=== PATIENT | female | born 1950 | race Caucasian/White ===

== ENCOUNTER → 2017-10-26 16:02 | Outpatient (CLI) | payer MEDICARE, SELFPAY ==
[2017-10-26 16:08] LABS: Adenovirus F 40/41, stool Not Detected (NotDetected); Astrovirus Not Detected (NotDetected); Campylobacter Not Detected (NotDetected); Clostridium Difficile A/B, PCR Not Detected (NotDetected); Cryptosporidium Not Detected (NotDetected); Cyclospora Cayetanesis Not Detected (NotDetected); Entamoeba histolytica Not Detected (NotDetected); Enteroaggregative E coli Not Detected (NotDetected); Enteropathogenic E coli Not Detected (NotDetected); Enterotoxigenic E coli Not Detected (NotDetected); Giardia lamblia Not Detected (NotDetected); Norovirus Not Detected (NotDetected); Plesimonas Shigalloides, PCR Not Detected (NotDetected); Rotavirus A Not Detected (NotDetected); Salmonella, PCR Not Detected (NotDetected); Sapovirus Not Detected (NotDetected); Shiga-like toxin E coli Not Detected (NotDetected); Shigella Enterovasive E coli Not Detected (NotDetected); Vibrio Cholerae Not Detected (NotDetected); Vibrio, PCR Not Detected (NotDetected); Yersinia Entercolitica, PCR Not Detected (NotDetected)
== END ==
PROVIDERS: Visit Provider Nurse Practitioner Family
DX: R19.7 Diarrhea, unspecified (principal)
CPT/HCPCS: 87507

== ENCOUNTER → 2019-01-17 11:29 | Outpatient (CLI) | payer MEDICARE, SELFPAY ==
--- NOTE | 2019-01-17 11:35 | XR_ITS ---
XR foot wt bearing RT 3V HISTORY: ITS.REASON: pain ORDERING PHYSICIAN: Holly Brown DPM PATIENT AGE: 68 years COMPARISON: None FINDINGS: No fracture or dislocation. No lytic or blastic change. There is normal mineralization.. The joint spaces are well-preserved. There is mild bony hypertrophic change at the first metatarsal tarsal joint. There is a prominent os navicularis IMPRESSION: Degenerative changes at the first metatarsal tarsal joint Prominent os navicularis
== END ==
PROVIDERS: PCP Nurse Practitioner Family; Visit Provider Podiatrist
DX: M79.671 Pain in right foot (principal)
CPT/HCPCS: 73630

== ENCOUNTER → 2019-01-23 18:39 | Outpatient (CLI) | payer MEDICARE, SELFPAY ==
[2019-01-23 18:59] LABS: Basophils # 0.1 K/mm3 (0-0.2); Basophils % 0.7 % (0.1-2.0); Eosinophils # 0.1 K/mm3 (0.0-0.4); Eosinophils % 1.1 % (0.1-12.0); Hematocrit 42.6 % (37.0-47.0); Hemoglobin 13.3 g/dL (12.2-16.2); Lymphocytes # 1.8 K/mm3 (0.7-4.5); Mean Corpuscular HGB Conc 31.3 g/dL (31.8-35.4); Mean Corpuscular Hemoglobin 30.7 pg (27.0-31.2); Mean Corpuscular Volume 98.3 fl (81-99); Mean Platelet Volume 8.8 fl (7.4-10.4); Monocytes # 0.4 K/mm3 (0.1-1.0); Monocytes % 5.3 % (1.7-9.3); Neutrophils # 5.1 K/mm3 (1.8-7.8); Neutrophils % 68.9 % (37.0-80.0); Platelet Count 370 K/mm3 (142-424); Red Blood Count 4.33 M/mm3 (4.20-5.40); Red Cell Distribution Width 13.1 % (11.5-17.5); White Blood Count 7.4 K/mm3 (4.8-10.8)
[2019-01-23 19:09] LABS: Alanine Aminotransferase 18 U/L (12-78); Albumin Level 3.7 gm/dL (3.4-5.0); Albumin/Globulin Ratio 1.2 (1.1-1.8); Alkaline Phosphatase 79 U/L (46-116); Anion Gap 15.5 mEq/L (5-15); Aspartate Amino Transferase 13 U/L (15-37); Bilirubin,Total 0.3 mg/dL (0.2-1.0); Blood Urea Nitrogen 24 mg/dL (7-18); C-Reactive Protein < 0.2 mg/L (0.0-0.9); Calcium 9.3 mg/dL (8.5-10.1); Carbon Dioxide 26 mmol/L (21.0-32.0); Chloride 105 mmol/L (98-107); Chol/HDL Ratio 2.5 (1-3.5); Cholesterol 174 mg/dL (140-200); Creatinine,Serum 1.21 mg/dL (0.55-1.02); Estimated Glomerular Filt Rate 45 ml/min (>60); GFR (African American) 54 ML/MIN (>60); Globulin 3.1 gm/dl (1.3-3.2); Glucose 106 mg/dL (74-106); HDL Cholesterol 71 mg/dL (29-89); LDL Cholesterol 76 mg/dL (0-130); Potassium 3.5 mmoL/L (3.5-5.1); Sodium 143 mmol/L (136-145); T4 (Thyroxine) 14.9 ug/dl (4.7-13.3); Thyroid Stimulating Hormone 0.57 uIU/ml (0.358-3.740); Total Protein,Serum 6.8 gm/dL (6.4-8.2); Triglycerides 137 mg/dL (30-200); VLDL Cholesterol 27 mg/dL (0-40)
[2019-01-23 19:28] LABS: Erythrocyte Sedimentation Rate 19 mm/hr (0-30)
[2019-01-25 17:47] LABS: Vitamin D 25 Hydroxy 30.5 ng/mL (30.0-100.0)
== END ==
PROVIDERS: Visit Provider Nurse Practitioner Family
DX: R10.9 Unspecified abdominal pain; R25.1 Tremor, unspecified; E03.9 Hypothyroidism, unspecified
CPT/HCPCS: 80053; 80061; 82652; 84436; 84443; 85025; 85651; 86140; 87086

== ENCOUNTER → 2019-01-25 10:10 | Outpatient (CLI) | payer MEDICARE, SELFPAY | PROVIDERS: PCP Emergency Medicine; Visit Provider Nurse Practitioner Family | DX: R00.2 Palpitations (principal); R42 Dizziness and giddiness | CPT/HCPCS: 93270 ==

== ENCOUNTER → 2019-01-30 16:03 | Outpatient (CLI) | payer MEDICARE, SELFPAY | PROVIDERS: Visit Provider Specialist | DX: G47.19 Other hypersomnia (principal); G47.30 Sleep apnea, unspecified; R06.83 Snoring; R41.3 Other amnesia; R53.83 Other fatigue | CPT/HCPCS: G0399 ==

== ENCOUNTER → 2019-02-07 12:54 | Outpatient (CLI) | payer MEDICARE, SELFPAY ==
--- NOTE | 2019-02-07 12:56 | CA_ITS ---
PROCEDURE: 2-D M-mode and color Doppler study INDICATIONS FOR THE TEST: Chest pain COPDX Heart Murmur Tobacco SmokingX PalpitationsX Fatigue Syncope Edema HypertensionXDiabetes Mellitus Rheumatic Fever SOBXDOE Obesity HyperlipidemiaX Family History HDX Additional History PATIENT INFORMATION HEIGHT: 64 WEIGHT:136 GENDER: Female B/P:161/86 2-D/M-MODE INTERPRETATION: 2-D MEASUREMENTS OBSERVED VALUES IN CMS Right Ventricular Dimension (RVDd) 1.9 Interventricular Septum (Thickness)(IVsd) .7 Left Ventricular Internal Dimensions(LVIDd) 4.5 Left Ventricular Posterior Wall (Thickness)(LVPWd) .7 Aortic Root 3.4 Aortic Cusp Separation 1.9 Left Atrial Dimensions (LAD) 2.6 2D 1. Left atrium is mildly enlarged, left ventricle is normal size, mild concentric left ventricular hypertrophy, visually estimated ejection fraction 55% with no regional wall motion abnormality. 2. The right atrium and right ventricle are normal size and contractility. 3. The aortic valve is minimally thickened and fibrosed. 4. The mitral and tricuspid valve leaflets are minimally thickened 5. The pulmonic valve is poorly visualized. 6. No significant pericardial effusion noted. DOPPLER INTERROGATION: Doppler interrogation of the aortic, mitral and tricuspid valvular presence of mild mitral and tricuspid regurgitation, tricuspid regurgitation jet velocity is inadequate for calculation of the right ventricular systolic pressure, grade 1 diastolic dysfunction seen without tissue Doppler evidence of raised left atrial pressure. CONCLUSION: 1. Mildly enlarged left atrium, normal left ventricular size, mild concentric left ventricular hypertrophy, visually estimated ejection fraction 55% with no regional wall motion abnormality, grade 1 diastolic dysfunction seen without tissue Doppler evidence of raised left atrial pressure. 2. Mild mitral and tricuspid regurgitation 3. No significant pericardial effusion noted.
--- NOTE | 2019-02-07 12:56 | CI_ITS ---
Cerebrovascular Exam Indications: 433.10 Occlusion/stenosis of carotid artery without cerebral infarction. IMPRESSIONS 1. The bilateral vertebral arteries are patent with normal antegrade flow. 2. Study suggests less than 20% stenosis involving the right internal carotid artery and the left internal carotid artery. No change from the study of 25-Jan-2017. History: Risk factors: Current tobacco use. Hypertension. Carotid duplex study. Complete study and Doppler flow study including spectral analysis, color and huertas scale imaging. Location: Vascular laboratory. Patient status: Outpatient. Tables: Arterial flow: + +--------+--------+ Location V sys V ed + +--------+--------+ Right CCA - proximal 55.8cm/s 17.3cm/s + +--------+--------+ Right CCA - distal 55cm/s 17.3cm/s + +--------+--------+ Right ECA 67.6cm/s -------- + +--------+--------+ Right ICA - proximal 55.8cm/s 17.3cm/s + +--------+--------+ Right ICA - mid 69.9cm/s 21.2cm/s + +--------+--------+ Right ICA - distal 59.7cm/s 22cm/s + +--------+--------+ Right vertebral 44.8cm/s -------- + +--------+--------+ Left CCA - proximal 68.4cm/s 20.4cm/s + +--------+--------+ Left CCA - distal 50.3cm/s 15.7cm/s + +--------+--------+ Left ECA 73.1cm/s -------- + +--------+--------+ Left ICA - proximal 43cm/s 19.9cm/s + +--------+--------+ Left ICA - mid 62.9cm/s 25.9cm/s + +--------+--------+ Left ICA - distal 73.3cm/s 24.3cm/s + +--------+--------+ Left vertebral 43cm/s -------- + +--------+--------+ Velocity ratios: + + + + + + Right, V sys Right, V ed Left, V sys Left, V ed + + + + + + Max ICA/dist CCA 1.27 1.27 1.46 1.65 + + + + + + (Report amended ) Electronically signed by: Tristan Woods [id number]
== END ==
PROVIDERS: PCP Nurse Practitioner Family; Visit Provider Internal Medicine
DX: R00.2 Palpitations (principal); R06.02 Shortness of breath; I65.29 Occlusion and stenosis of unspecified carotid artery; R42 Dizziness and giddiness
CPT/HCPCS: 93306; 93880

== ENCOUNTER → 2019-02-15 10:56 | Outpatient (CLI) | payer MEDICARE, SELFPAY ==
[2019-02-15 12:42] LABS: Blood Urea Nitrogen 20 mg/dL (7-18); Calcium 9.3 mg/dL (8.5-10.1); Carbon Dioxide 27 mmol/L (21.0-32.0); Chloride 107 mmol/L (98-107); Creatinine,Serum 1.13 mg/dL (0.55-1.02); Estimated Glomerular Filt Rate 48 ml/min (>60); Free T4 (Free Thyroxine) 1.39 ng/dl (0.76-1.46); GFR (African American) 58 ML/MIN (>60); Glucose 88 mg/dL (74-106); Sodium 144 mmol/L (136-145)
[2019-02-16 22:05] LABS: Triiodothyronine (T3) Free 2.8 pg/mL (2.0-4.4)
== END ==
PROVIDERS: Visit Provider Nurse Practitioner Family
DX: E03.9 Hypothyroidism, unspecified (principal); R79.9 Abnormal finding of blood chemistry, unspecified
CPT/HCPCS: 36415; 80048; 84439; 84481

== ENCOUNTER → 2019-03-27 09:01 | Outpatient (CLI) | payer MEDICARE, SELFPAY ==
--- NOTE | 2019-03-27 09:03 | XR_ITS ---
PROCEDURE: XR DEXA AXIAL SKELETON CLINICAL HISTORY: screening COMPARISON: No exams were available for comparison TECHNIQUE: FINDINGS: L1-L4 density is 0.839 grams/centimeters sq with a T-score of -2.8. The total right hip density is 0.692 grams/centimeters sq with a T-score -2 point IMPRESSION: Osteoporosis with high fracture risk. Treatment advised. Suggest follow-up exam March 2020 Dictated by: Tristan Woods MD 03/27/2019 12:10 Signed by: <Electronically signed by Tristan Woods MD in [place]> 03/27/2019 12:10
--- NOTE | 2019-03-27 09:03 | MM_ITS ---
PROCEDURE: MM DIG SCREENING MAMM BI W/CAD Patient Age:68Y CLINICAL INDICATION: sc routine screening mammogram. No hormones but no new complaints. Noncontributory family history Previous left breast cyst aspiration COMPARISON: DIGMAMMS MAMMOGRAM SCREEN-PROCESS STRIPPER N/C from 12/21/2011 DIGMAMMS MAMMOGRAM SCREEN-PROCESS STRIPPER N/C from 12/07/2012 DMSB DIG MAMM-SCREEN EMMANUELLE from 04/20/2014 [facility]B DIG MAMM-SCREEN EMMANUELLE from 09/06/2015 D[facility]B DIG MAMM-SCREEN EMMANUELLE W/CAD from 02/15/2017 TECHNIQUE: Standard CC and MLO images were obtained. R2 CAD reviewed. FINDINGS: Moderate breast density overall. Moderate density fibroglandular elements most evident at the central and toward upper outer quadrant portions of both breast. Stable overall parenchymal pattern no dominant mass or suspicious calcifications. Right breast: Scattered very tiny punctate calcifications upper-outer quadrant right breast again noted and similar to previous studies dating back to 2013, 2012 2011--overall appear benign and these can be followed but warrant annual follow-up.. This long-term stability supports benign character. No this is significant new calcifications nor suspicious branching forms. no new areas of concern otherwise to IMPRESSION: Stable bilateral mammogram but no new areas of significant concern. Scattered tiny punctate calcifications within the upper-outer quadrant right breast again noted. No appreciable change since studies dating back to 2013 and 2011. Stability here supports benign calcifications but warrant continued annual follow-up Bilateral follow-up 1 year recommended BI-RAD Category: 2 Benign Finding(s) FOLLOW-UP: 1YR 1 Year Follow-up (A letter has been sent to the patient regarding results of the study.) Dictated by: Cleveland Resendiz MD 03/27/2019 16:28 Signed by: <Electronically signed by Cleveland Resendiz MD in [facility]> 04/05/2019 12:01
== END ==
PROVIDERS: PCP Emergency Medicine; Visit Provider Obstetrics & Gynecology
DX: Z12.31 Encounter for screening mammogram for malignant neoplasm of breast; Z13.820 Encounter for screening for osteoporosis; Z78.0 Asymptomatic menopausal state; M81.0 Age-related osteoporosis without current pathological fracture
CPT/HCPCS: 77067; 77080

== ENCOUNTER → 2020-03-29 09:44 | Outpatient (CLI) | payer MEDICARE, SELFPAY ==
--- NOTE | 2020-03-29 09:44 | MM_ITS ---
PROCEDURE: MM DIG SCREENING MAMM BI W/CAD Digital Breast Tomosynthesis Included CLINICAL INDICATION: screening There is no personal or family history of breast cancer. COMPARISON: MG [facility]MSB DIG MAMM-SCREEN EMMANUELLE from 09/06/2015 MG [facility] DIG MAMM-SCREEN EMMANUELLE W/CAD from 02/15/2017 MG MM DIG SCREENING MAMM BI W/CAD from 03/27/2019 TECHNIQUE: Standard CC and MLO images and 3D Tomosynthesis was obtained. R2 CAD reviewed. FINDINGS: Prominent somewhat heterogenic fibroglandular densities are seen in the central portions of both breasts. There is a mole marker near the axillary tail right breast. There are scattered benign-appearing microcalcifications in each breast. There is no new or suspicious lesion in either breast and no suspicious microcalcifications. IMPRESSION: Moderate diffuse breast density with no suspicious lesions seen BI-RAD Category: 2 Benign Finding(s) FOLLOW-UP: 1YR 1 Year Follow-up (A letter has been sent to the patient regarding results of the study.) Dictated by: Dr. Gaudencio Cabrera MD 04/01/2020 10:33 Dr. Gaudencio Cabrera MD in [place] 04/01/2020 10:33
== END ==
PROVIDERS: PCP Nurse Practitioner Family; Visit Provider Emergency Medicine
DX: Z12.31 Encounter for screening mammogram for malignant neoplasm of breast (principal)
CPT/HCPCS: 77063; 77067

== ENCOUNTER → 2020-06-18 12:39 | Outpatient (POV) | payer MEDICARE, SELFPAY | PROVIDERS: Visit Provider Dermatology | DX: Z00.00 Encounter for general adult medical examination without abnormal findings (principal) ==

== ENCOUNTER → 2020-11-19 14:14 | Outpatient (CLI) | payer MEDICARE, MEDICAID, SELFPAY ==
--- NOTE | 2020-11-19 14:30 | XR_ITS ---
PROCEDURE: XR FOOT WT BEARING LT 3V CLINICAL INDICATION: pain COMPARISON: No exams were available for comparison FINDINGS: No fracture or dislocation. No lytic or blastic change. There is normal mineralization. The joint spaces are well-preserved. No significant degenerative/arthritic changes. No erosive changes evident. Other findings:None. IMPRESSION: No acute findings. Dictated by: Tristan Woods MD 11/19/2020 17:35 Tristan Woods MD in [place] 11/19/2020 17:35
--- NOTE | 2020-11-19 14:30 | XR_ITS ---
PROCEDURE: XR FOOT WT BEARING RT 3V CLINICAL INDICATION: pain COMPARISON: No exams were available for comparison FINDINGS: No fracture or dislocation. No lytic or blastic change. There is normal mineralization. The joint spaces are well-preserved. No significant degenerative/arthritic changes. No erosive changes evident. Other findings:None. IMPRESSION: No acute findings. Dictated by: Tristan Woods MD 11/19/2020 17:46 Tristan Woods MD in [place] 11/19/2020 17:46
== END ==
PROVIDERS: PCP Nurse Practitioner Family; Visit Provider Podiatrist
DX: M79.672 Pain in left foot (principal); M79.671 Pain in right foot
CPT/HCPCS: 73630

== ENCOUNTER → 2022-08-07 09:11 | Outpatient (CLI) | payer MEDICARE, MEDICAID, SELFPAY ==
[2022-08-07 09:35] LABS: Basophils # 0.1 K/mm3 (0-0.2); Basophils % 1.1 % (0.1-2.0); Eosinophils # 0.6 K/mm3 (0.0-0.4); Eosinophils % 6.5 % (0.1-12.0); Hematocrit 42.6 % (37.0-47.0); Hemoglobin 13.5 g/dL (12.2-16.2); Lymphocytes # 2.5 K/mm3 (0.7-4.5); Lymphocytes % 27.2 % (10-50); Mean Corpuscular HGB Conc 31.6 g/dL (31.8-35.4); Mean Corpuscular Hemoglobin 30.6 pg (27.0-31.2); Mean Corpuscular Volume 96.9 fl (81-99); Mean Platelet Volume 7.7 fl (7.4-10.4); Monocytes # 0.5 K/mm3 (0.1-1.0); Monocytes % 5.4 % (1.7-9.3); Neutrophils # 5.6 K/mm3 (1.8-7.8); Neutrophils % 59.9 % (37.0-80.0); Platelet Count 398 K/mm3 (142-424); Red Cell Distribution Width 13.4 % (11.5-17.5); White Blood Count 9.3 K/mm3 (4.8-10.8)
[2022-08-07 10:06] LABS: Chloride 108 mmol/L (98-107); Potassium 4.7 mmoL/L (3.5-5.1); Sodium 143 mmol/L (136-145)
[2022-08-07 10:08] LABS: Blood Urea Nitrogen 25 mg/dl (7-17); Estimated Glomerular Filt Rate 49 ml/min (>60); GFR (African American) 60 ML/MIN (>60)
[2022-08-07 10:09] LABS: Alanine Aminotransferase 14 U/L (12-78); Albumin Level 3.9 g/dl (3.5-5.0); Albumin/Globulin Ratio 1.3 (1.1-1.8); Alkaline Phosphatase 78 U/L (38-126); Anion Gap 11.7 mEq/L (5-15); Aspartate Amino Transferase 23 U/L (14-36); Bilirubin,Total 0.5 mg/dl (0.2-1.3); Calcium 9.2 mg/dl (8.4-10.2); Carbon Dioxide 28 mmol/L (22.0-30.0); Globulin 2.9 g/dL (1.3-3.2); Glucose 90 mg/dl (74-100); Total Protein,Serum 6.8 g/dl (6.3-8.2)
[2022-08-07 10:23] LABS: Free T4 (Free Thyroxine) 1.33 ng/dl (0.78-2.19)
[2022-08-07 10:37] LABS: Thyroid Stimulating Hormone 0.37 uIU/mL (0.465-4.68)
== END ==
PROVIDERS: PCP Nurse Practitioner Family; Visit Provider Nurse Practitioner Family
DX: N18.9 Chronic kidney disease, unspecified (principal); R60.9 Edema, unspecified
CPT/HCPCS: 36415; 80053; 84439; 84443; 85025

== ENCOUNTER → 2022-10-14 10:41 | Outpatient (CLI) | payer MEDICARE, MEDICAID, SELFPAY ==
--- NOTE | 2022-10-14 10:51 | CT_ITS ---
FINAL REPORT CLINICAL HISTORY: H/O TOBACCO USE, patient states she quit 20 years ago, prior 2 ppd for 10 years FINDINGS: Low-Dose Chest CT Axial images were obtained from the lung apex to the mid abdomen by computed tomography. Low-dose protocol was utilized. CTDI vol (mGy): 2.90 DLP (mGy-cm): 97.42 There is no axillary adenopathy. There is no hilar or mediastinal adenopathy. The heart is proper size. There is no pericardial or pleural effusion. Lung window images demonstrate mild changes of emphysema with mild pulmonary scarring. There is lingular scarring or atelectasis. There is a ground-glass nodule in the right upper lobe measuring 14 mm. There is a posterior left upper lobe nodule that measures 6 mm. There is a pleural placed lateral right upper lobe nodule that measures 6 mm. There is a 4 mm nodule in the right upper lobe. There is a 5 mm pleural based nodule in the right lower lobe. There is a 6 mm nodule in the superior segment of the left lower lobe. There is a calcified granuloma in the left lower lobe. Limited images of the upper abdomen demonstrate left adrenal gland enlargement, favor an adenoma. IMPRESSION: Bilateral pulmonary nodules measuring up to 14 mm. Lung RADS category 3. Recommend 6 month follow-up low-dose chest CT. Reviewed, Interpreted and Dictated by Hubert Villasenor III, MD Transcribed by Melissa Sutherland Authenticated and [facility] [place]
[2022-10-14 12:42] LABS: Free T4 (Free Thyroxine) 1.41 ng/dl (0.78-2.19)
[2022-10-14 12:57] LABS: Thyroid Stimulating Hormone 6.44 uIU/mL (0.465-4.68)
== END ==
PROVIDERS: PCP Nurse Practitioner Family; Visit Provider Nurse Practitioner Family
DX: Z87.891 Personal history of nicotine dependence (principal); Z12.2 Encounter for screening for malignant neoplasm of respiratory organs; E03.9 Hypothyroidism, unspecified
CPT/HCPCS: 36415; 71271; 84439; 84443

== ENCOUNTER → 2022-10-21 11:22 | Outpatient (CLI) | payer MEDICARE, MEDICAID, SELFPAY | PROVIDERS: PCP Nurse Practitioner Family; Visit Provider Internal Medicine Pulmonary Disease | DX: R06.09 Other forms of dyspnea (principal); R91.8 Other nonspecific abnormal finding of lung field | CPT/HCPCS: 87070; 87205 ==

== ENCOUNTER → 2023-01-22 07:58 | Outpatient (CLI) | payer MEDICARE, MEDICAID, SELFPAY | PROVIDERS: PCP Nurse Practitioner Family; Visit Provider Internal Medicine Pulmonary Disease | DX: R06.09 Other forms of dyspnea (principal); R91.8 Other nonspecific abnormal finding of lung field | CPT/HCPCS: 94060; 94618 ==

== ENCOUNTER 2023-02-03 15:44 | Emergency (ER) | payer MEDICARE, MEDICAID, SELFPAY ==
[2023-02-03 15:45] VITALS: BP 170/94; PULSE 87; RESP 18; TEMP 36.8; O2SAT 95; BMI 28.8
--- NOTE | 2023-02-03 16:03 | EXP.UTC ---
Discharge Plan Disposition Patient Disposition: Home, Self-Care Condition: Good Prescriptions Prescriptions: New sulfamethoxazole-trimethoprim [Bactrim DS] 800-160 mg Tablet 1 tab PO BID Qty: 20 0RF mupirocin 2 % ointment 1 applic topical TID 7 Days Qty: 15 0RF cephalexin 500 mg capsule 500 mg PO QID Qty: 40 0RF No Action levothyroxine 125 mcg tablet 100 mcg .ROUTE DAILY Rx Instructions: 100 mcg daily; lisinopril 20 mg tablet 20 mg PO DAILY donepezil 23 mg tablet 20 mg PO DAILY citalopram 20 mg tablet 20 mg PO DAILY ipratropium-albuterol 0.5 mg-3 mg(2.5 mg base)/3 mL solution for nebulization 3 ml inhalation QID PRN (Reason: shortness of breath or wheezing) 90 Days Qty: 270 3RF fluticasone propionate [Flonase Allergy Relief] 50 mcg/actuation spray,suspension 1 spray intranasal DAILY 90 Days Qty: 16 3RF Rx Instructions: administer into each nostril memantine 10 mg tablet See Rx Instructions .ROUTE .COMPLEX Qty: 60 0RF Dose Instruction: TAKE ONE TABLET BY MOUTH 2 TIMES A DAY FOR MEMORY Rx Instructions: TAKE ONE TABLET BY MOUTH 2 TIMES A DAY FOR MEMORY lovastatin 20 mg tablet See Rx Instructions .ROUTE .COMPLEX Qty: 30 0RF Dose Instruction: TAKE ONE TABLET BY MOUTH ONCE A DAY FOR CHOLESTEROL Rx Instructions: TAKE ONE TABLET BY MOUTH ONCE A DAY FOR CHOLESTEROL metoprolol succinate 25 mg tablet extended release 24 hr See Rx Instructions .ROUTE .COMPLEX Qty: 30 0RF Dose Instruction: TAKE ONE TABLET BY MOUTH ONCE A DAY BLOOD PRESSURE/HEART Rx Instructions: TAKE ONE TABLET BY MOUTH ONCE A DAY BLOOD PRESSURE/HEART Stiolto Respimat 2.5-2.5 mcg/actuation mist 2 puff inhalation DAILY 90 Days Qty: 4 3RF albuterol sulfate 90 mcg/actuation HFA aerosol inhaler 2 inh inhalation QID PRN (Reason: shortness of breath or wheezing) 90 Days Qty: 8.5 2RF potassium gluconate 595 mg (99 mg) tablet 99 mg PO BID Referrals Follow up/Referrals: Huan Magaña APRN [Primary Care Provider] - See instructions Activity Restrictions/Add. Instructions Additional Instructions/Restrictions: Take tylenol for pain or fever. Take the medications as directed. Follow up with your regular doctor. GO TO THE ER FOR ANY WORSENING SYMPTOMS Clinical Impressions Clinical Impression: Cellulitis of left arm Instructions Patient Instructions: Cellulitis Discharge ED Provider: Jairo Dwyer [facility] [place] General Stated complaint: LT wrist swollen Time Seen by Provider: 02/03/23 16:04 History of Present Illness Provider Complaint: She states that for the past 3 days she has had warmth, redness and swelling of her left wrist. Related Data Home Medications Medication Instructions Recorded Confirmed citalopram 20 mg tablet 20 mg PO DAILY 10/21/22 01/22/23 donepezil 23 mg tablet 20 mg PO DAILY 10/21/22 01/22/23 levothyroxine 125 mcg tablet 100 mcg .Route DAILY 10/21/22 01/22/23 lisinopril 20 mg tablet 20 mg PO DAILY 10/21/22 01/22/23 potassium gluconate 595 mg (99 mg) 99 mg PO BID Supplement 10/21/22 01/22/23 tablet Previous Rx's Medication Instructions Recorded lovastatin 20 mg tablet See Rx Instructions .Route 08/21/21 .COMPLEX #30 tabs memantine 10 mg tablet See Rx Instructions .Route 08/21/21 .COMPLEX #60 tabs metoprolol succinate 25 mg See Rx Instructions .Route 08/21/21 tablet,extended release 24 hr .COMPLEX #30 tabs ipratropium 0.5 mg-albuterol 3 mg 3 ml inhalation QID PRN shortness 10/21/22 (2.5 mg base)/3 mL nebulization of breath or wheezing 90 days #270 soln mL tiotropium 2.5 mcg-olodaterol 2.5 2 puff inhalation DAILY 90 days #4 11/19/22 mcg/actuation mist for inhalation grams (Stiolto Respimat) albuterol sulfate 90 mcg/actuation 2 inh inhalation QID PRN shortness 01/19/23 aerosol inhaler of breath or wheezing 90 days #8.5 grams fluticasone propionate 50 1 spray intr
--- NOTE | 2023-02-03 16:08 | XR_ITS ---
FINAL REPORT CLINICAL HISTORY: pain,no known injury, swelling of left hand into wrist COMPARISON: None FINDINGS: LEFT HAND: 4 views of the left hand were obtained. There is no acute fracture or dislocation. Visualized joint spaces are normally aligned. There is mild degenerative change. Soft tissues are unremarkable. IMPRESSION: No acute bony abnormality. Reviewed, Interpreted and Dictated by Hubert Villasenor III, MD Transcribed by Casandra Crespo Authenticated and [facility]
--- NOTE | 2023-02-03 16:08 | XR_ITS ---
FINAL REPORT CLINICAL HISTORY: pain, no known injury, swelling of hand into left wrist COMPARISON: None FINDINGS: LEFT WRIST Three views demonstrate no acute fracture or dislocation. The visualized joint spaces are normally aligned. There is mild and moderate degenerative change at the radial aspect of the wrist, greatest at the first CMC. The soft tissues are unremarkable. IMPRESSION: Degenerative change without acute bony abnormality. Reviewed, Interpreted and Dictated by Hubert Villasenor III, MD Transcribed by Casandra Crespo Authenticated and [facility]
[2023-02-03 16:55] VITALS: BP 170/94; PULSE 87; RESP 18; TEMP 36.8; O2SAT 95
== END 2023-02-03 16:56 | disposition home or self-care (01) ==
PROVIDERS: Emergency Provider Nurse Practitioner Family; PCP Nurse Practitioner Family
DX: L03.114 Cellulitis of left upper limb (principal); J44.9 Chronic obstructive pulmonary disease, unspecified; I65.29 Occlusion and stenosis of unspecified carotid artery; E03.9 Hypothyroidism, unspecified; Z87.891 Personal history of nicotine dependence
CPT/HCPCS: 73110; 73130; 99204; 99212; G0463

== ENCOUNTER → 2023-04-26 16:09 | Outpatient (CLI) | payer MEDICARE, OTHER, SELFPAY ==
[2023-04-26 16:52] LABS: Microscopic, Urine URINE MICROSCOPIC (MICROSCOPIC)
[2023-04-26 17:38] LABS: Appearance,Urine CLEAR (Clear); Bilirubin,Urine Negative (Negative); Blood, Urine TRACE-I (Negative); Color,Urine YELLOW (Yellow); Glucose,Urine (UA) Negative (Negative); Ketones,Urine Negative (Negative); Leukocyte Esterase,Urine 2+ (Negative); Nitrate,Urine POSITIVE (Negative); PH,Urine 5.5 (5.0-8.5); Protein,Urine Negative (Negative); Specific Gravity, Urine 1.025 (1.005-1.030); Urobilinogen,Urine 0.2 EU/dl (0.2)
[2023-04-26 17:45] LABS: Bacteria,Urine 3+ /lpf; RBC,Urine Occasional #/hpf (0-3); WBC,Urine 20-50 #/hpf (0-3)
== END ==
PROVIDERS: PCP Nurse Practitioner Family; Visit Provider Nurse Practitioner Family
DX: R30.0 Dysuria (principal); N39.0 Urinary tract infection, site not specified; B96.1 Klebsiella pneumoniae [K. pneumoniae] as the cause of diseases classified elsewhere
CPT/HCPCS: 81001; 87086; 87088; 87186

== ENCOUNTER 2023-05-15 21:02 | Inpatient (IN) | payer MEDICARE, OTHER, SELFPAY ==
[2023-05-15 21:04] VITALS: BP 154/78; PULSE 86; RESP 18; TEMP 36.4; O2SAT 97; BMI 30.2
--- NOTE | 2023-05-15 21:14 | CT_ITS ---
PROCEDURE INFORMATION: Exam: CT Cervical Spine Without Contrast Exam date and time: 05/15/2023 9:34 PM Age: 72 years old Clinical indication: Injury or trauma; Other: Pain from fall; Additional info: Fall, head trauma TECHNIQUE: Imaging protocol: Computed tomography of the cervical spine without contrast. Radiation optimization: All CT scans at this facility use at least one of these dose optimization techniques: automated exposure control; mA and/or kV adjustment per patient size (includes targeted exams where dose is matched to clinical indication); or iterative reconstruction. REPORTING DATA: Count of CT and Cardiac NM exams in prior 12 months: This patient has received [address] and 0 known cardiac nuclear medicine studies in the 12 months prior to the current study. COMPARISON: CT HEAD/BRAIN WO CON 05/15/2023 9:31 PM FINDINGS: Bones/joints: Evidence for mildly displaced fracture of the lateral right 3rd rib. There is deformed appearance of the left mandibular angle with cortical margin offset favored to represent motion artifact. No cervical spine fracture. Vertebral body heights are preserved. No severe central canal narrowing. Lungs: A small pneumothorax of the anterior right lung measuring 14 mm in thickness is noted incompletely included in the field of view. Lung apices otherwise clear. Soft tissues: Unremarkable. IMPRESSION: 1. No cervical fracture evident. 2. Small anterior right apical pneumothorax incompletely included in the field of view. 3. Possible right lateral 3rd rib fracture. 4. Deformity of the left mandibular angle favored to represent motion artifact. Can not entirely exclude a fracture of the left mandible if symptoms in this region.
--- NOTE | 2023-05-15 21:14 | XR_ITS ---
PROCEDURE INFORMATION: Exam: XR Right Humerus Exam date and time: 05/15/2023 9:54 PM Age: 72 years old Clinical indication: Injury or trauma; Other: Pain from fall; Additional info: Right shoulder pain after fall TECHNIQUE: Imaging protocol: Radiologic exam of the right humerus. Views: 2 or more views. COMPARISON: CR Scapula R 01/04/2019 1:43 PM FINDINGS: Bones/joints: Obliquely oriented, comminuted fracture through the scapular body/inferior neck without definite intra-articular extension. Acromioclavicular and glenohumeral joint degenerative changes. Soft tissues: Normal. IMPRESSION: Comminuted scapular body/inferior neck fracture without definite intra-articular extension.
--- NOTE | 2023-05-15 21:14 | XR_ITS ---
PROCEDURE INFORMATION: Exam: XR Right Scapula Exam date and time: 05/15/2023 9:54 PM Age: 72 years old Clinical indication: Injury or trauma; Other: Pain from fall; Additional info: Right shoulder pain after fall TECHNIQUE: Imaging protocol: Radiologic exam of the right scapula. Complete exam. COMPARISON: CT LUNG SCREENING 10/14/2022 11:08 AM FINDINGS: Bones/joints: Obliquely oriented, comminuted fracture through the scapular body/inferior neck without definite intra-articular extension. Acromioclavicular and glenohumeral joint degenerative changes. Soft tissues: Normal. IMPRESSION: Comminuted scapular body/inferior neck fracture without definite intra-articular extension.
--- NOTE | 2023-05-15 21:14 | CT_ITS ---
PROCEDURE INFORMATION: Exam: CT Head Without Contrast Exam date and time: 05/15/2023 9:31 PM Age: 72 years old Clinical indication: Injury or trauma; Other: Pain after fall; Additional info: Fall, head trauma TECHNIQUE: Imaging protocol: Computed tomography of the head without contrast. Radiation optimization: All CT scans at this facility use at least one of these dose optimization techniques: automated exposure control; mA and/or kV adjustment per patient size (includes targeted exams where dose is matched to clinical indication); or iterative reconstruction. REPORTING DATA: Count of CT and Cardiac NM exams in prior 12 months: This patient has received [address] and 0 known cardiac nuclear medicine studies in the 12 months prior to the current study. COMPARISON: BRW/O MRI-BRAIN W/O 03/01/2017 8:14 AM FINDINGS: Brain: No intracranial hemorrhage. Generalized atrophic changes of the ventricles and subarachnoid spaces. Chronic small-vessel ischemic changes noted. No mass, mass effect or midline shift. Intracranial atherosclerotic changes are noted. Cerebral ventricles: See Brain finding. Paranasal sinuses: Visualized sinuses are unremarkable. No fluid levels. Mastoid air cells: Visualized mastoid air cells are well aerated. Bones/joints: See Soft tissues finding. Soft tissues: Mild focal scalp soft tissue swelling over the superior frontal bone region just to left of midline. No underlying fracture. IMPRESSION: 1. Stable noncontrast CT brain with chronic changes. No acute intracranial abnormality. 2. Mild focal scalp soft tissue swelling over the superior frontal bone region just to left of midline. No underlying fracture.
--- NOTE | 2023-05-15 21:14 | XR_ITS ---
PROCEDURE INFORMATION: Exam: XR Right Shoulder Exam date and time: 05/15/2023 9:54 PM Age: 72 years old Clinical indication: Injury or trauma; Other: Pain from fall; Additional info: Right shoulder pain after fall TECHNIQUE: Imaging protocol: Radiologic exam of the right shoulder. Views: 2 or more views. COMPARISON: CR Scapula R 01/04/2019 1:43 PM FINDINGS: Bones/joints: Obliquely oriented, comminuted fracture through the scapular body/inferior neck without definite intra-articular extension. Acromioclavicular and glenohumeral joint degenerative changes. Soft tissues: Normal. IMPRESSION: Comminuted scapular body/inferior neck fracture without definite intra-articular extension.
--- NOTE | 2023-05-15 21:26 | HMH.EDGENADL ---
Discharge Plan Disposition Patient Disposition: Home, Self-Care Prescriptions Prescriptions: No Action levothyroxine 125 mcg tablet 100 mcg .ROUTE DAILY Rx Instructions: 100 mcg daily; citalopram 20 mg tablet 20 mg PO DAILY memantine 10 mg tablet See Rx Instructions .ROUTE .COMPLEX Qty: 60 0RF Dose Instruction: TAKE ONE TABLET BY MOUTH 2 TIMES A DAY FOR MEMORY Rx Instructions: TAKE ONE TABLET BY MOUTH 2 TIMES A DAY FOR MEMORY metoprolol succinate 25 mg tablet extended release 24 hr See Rx Instructions .ROUTE .COMPLEX Qty: 30 0RF Dose Instruction: TAKE ONE TABLET BY MOUTH ONCE A DAY BLOOD PRESSURE/HEART Rx Instructions: TAKE ONE TABLET BY MOUTH ONCE A DAY BLOOD PRESSURE/HEART albuterol sulfate 90 mcg/actuation HFA aerosol inhaler 2 inh inhalation QID PRN (Reason: shortness of breath or wheezing) 90 Days Qty: 8.5 2RF potassium chloride 20 mEq tablet,ER particles/crystals 20 meq PO DAILY lovastatin 20 mg tablet 20 mg PO DAILY Referrals Follow up/Referrals: Huan Magaña APRN [Primary Care Provider] - See instructions Activity Restrictions/Add. Instructions Additional Instructions/Restrictions: Follow-up with orthopedics Wednesday, 05/17. Dr. Darby's information is here. Because patient at baseline without signs or symptoms of clinical decompensation, deemed appropriate for discharge. Results were relayed to patient who voiced understanding and were agreeable to outpatient management and follow up. Patient was discharged in hemodynamically stable condition with recommended primary care follow-up. Do not wear sling at night to prevent strangulation Clinical Impressions Clinical Impression: Closed fracture of body of right scapula, Fall Discharge ED Provider: Anthony Osorio General Adult HPI General Chief complaint: Fall Stated complaint: [id number] Hit head RT shoulder Time Seen by Provider: 05/15/23 21:05 Mode of Arrival: Wheelchair Source of Information: Patient and Relative Limitations: No Limitations Description of Symptoms (Recalled from ER Triage Doc. by RN): Patient is a 72 y/o F that reports she fell at home about an hour ago. Daughter is POA and present and states she was walking up stairs and tripped. Patient can state name and place. Patient c/o of pain in right shoulder. Patient has a small lac to forehead as well. History of Present Illness HPI narrative: 72-year-old female history of dementia, hypertension, hyperlipidemia, COPD not on anticoagulation presenting with fall. Patient was walking outside, missed a step and fell, hitting her right shoulder and face on concrete. Did not lose consciousness. Family saw patient shortly after fall and went to help her up. She was lying on her right side she had small laceration on her forehead, but was alert and oriented. Family got patient inside and cleaned up blood. Because patient complaining of continuing right-sided shoulder pain. Patient states that right shoulder pain is her main concern. It is moderate to severe in intensity, does not radiate, not present at rest, made worse with range of motion of shoulder and application pressure. It is posterior and does not radiate. Daughter states she has a bruise there. Patient denies vision changes, neck or back pain that is new, chest pain, shortness of breath, neurologic deficits, or any other concerns. Alert and oriented. Related Data Home Medications Medication Instructions Recorded Confirmed citalopram 20 mg tablet 20 mg PO DAILY 10/21/22 05/15/23 levothyroxine 125 mcg tablet 100 mcg .Route DAILY 10/21/22 05/15/23 lovastatin 20 mg tablet 20 mg PO DAILY 05/15/23 05/15/23 potassium chloride 20 mEq 20 meq PO DAILY 05/15/23 05/15/23 tablet,extended release(part/cryst) Previous Rx's Medication Instructions Recorded memantine 10 mg tablet See Rx Instructions .Route 08/21/21 .COMPLEX #60 tabs metoprolol succinate 25 mg See Rx I
[2023-05-15 22:00] VITALS: BP 147/84; PULSE 86; RESP 18; O2SAT 98
[2023-05-15 22:30] VITALS: BP 150/80; PULSE 84; RESP 20; O2SAT 96
--- NOTE | 2023-05-15 22:37 | PC.NURSE ---
received call from alec
--- NOTE | 2023-05-15 22:39 | CT_ITS ---
PROCEDURE INFORMATION: Exam: CT Chest Without Contrast; Diagnostic Exam date and time: 05/15/2023 10:56 PM Age: 72 years old Clinical indication: Injury or trauma; Fall; Fracture, traumatic; Other: Right scapula FX, possible rib fractures; Additional info: Right scapular FX, probable ribs after fall on R s TECHNIQUE: Imaging protocol: Diagnostic computed tomography of the chest without contrast. Radiation optimization: All CT scans at this facility use at least one of these dose optimization techniques: automated exposure control; mA and/or kV adjustment per patient size (includes targeted exams where dose is matched to clinical indication); or iterative reconstruction. REPORTING DATA: Count of CT and Cardiac NM exams in prior 12 months: This patient has received [address] and 0 known cardiac nuclear medicine studies in the 12 months prior to the current study. COMPARISON: CT LUNG SCREENING 10/14/2022 11:08 AM and x-rays 05/15/2023 FINDINGS: Lungs: A small to moderate size pneumothorax is noted on the right anteriorly measuring 22 mm in maximum thickness in the superomedial right lung apex and to 31 mm anteriorly in the right lung base with partial collapse of the right lung. A 5 mm nodule noted in the posterior right upper lobe on axial image 19 previously measured [address] of 10/14/2022. A 4 mm subpleural nodule lateral right upper lobe on image 23 similar to previous. Stable 6 mm calcified subpleural nodule posterior left upper lobe on image 20. Interval development of subsegmental atelectasis lateral left lower lobe. Lungs are otherwise clear. Pleural spaces: See Lungs finding. Heart: Unremarkable. No cardiomegaly. No pericardial effusion. Coronary arteries: No significant coronary artery calcifications. Lymph nodes: Unremarkable. No enlarged lymph nodes. Vasculature: Unremarkable. No aortic aneurysm. Adrenal glands: Stable 12 mm low-density right adrenal nodule with density of 8 compatible with adenoma. Stable 2.5 cm low-density left adrenal nodule with a density of 8 also consistent with adenoma. Bones/joints: Mild superior endplate compression fracture of the L1 vertebra with mild loss of vertebral body height noted. Mild retropulsion into the anterior spinal canal without significant narrowing noted. Vertebral body heights are otherwise intact. Increased kyphosis of the thoracic spine noted. Comminuted segmental fracture of the right scapular body without significant displacement of the major fracture fragments identified. No intra-articular extension. Mildly displaced fractures of the lateral right 3rd and 4th ribs. No other fracture evident. Soft tissues: Unremarkable. IMPRESSION: 1. [id number]-[id number] size right-sided pneumothorax. 2. Lateral right 3rd and 4th rib fractures 3. Comminuted right scapular fracture. 4. Mild superior endplate compression fracture of L1. 5. A 5 mm nodule in the posterior right upper lobe slightly increased in size from recent CT of 10/14/2022. Given the potential increase I would advise a six-month follow-up chest CT for reassessment of this finding. 6. Additional nonemergent findings as above.
[2023-05-15 23:01] VITALS: BP 155/89; PULSE 92; RESP 20; O2SAT 99
--- NOTE | 2023-05-15 23:34 | PC.NURSE ---
vrad on phone with md zuñiga: results
--- NOTE | 2023-05-15 23:56 | PC.NURSE ---
spoke with [facility] attendant re: bed needed for admit; dx: pneumothorax
[2023-05-16] VITALS (22 sets, daily range): BP systolic 122–171; BP diastolic 55–106; PULSE 70–95; RESP 18–22; TEMP 36.2–37.4; O2SAT 92–100; BMI 29.0
--- NOTE | 2023-05-16 00:05 | PC.NURSE ---
OBSERVATION ADMISSION TO 208 WITH DX OF PNEUMOTHORAX TO SERVICE OF HOSPITALIST.
--- NOTE | 2023-05-16 00:25 | PC.NURSE ---
report given to DEE Josue on second floor at this time.
--- NOTE | 2023-05-16 00:42 | PC.NURSE ---
pt arrived to floor via stretcher @[id number]
--- NOTE | 2023-05-16 00:52 | PC.NURSE ---
Patient arrived to [facility] in room 208, two POA present Gerard Sutherland (Son) and Casandra Sutherland ([id number]). Admitting diagnosis: Right sided pneumothorax, rib and scapula fractures. Expresses wishes for a full code but wishes for patient not to be on tube long . Wishes told to ABDIAZIZ Thurman. Waiting for orders at this time.
--- NOTE | 2023-05-16 02:06 | EXP.HP ---
History of Present Illness *Admission Date: 05/16/23 *Reason for visit:: pneumothorax *History of present illness: 72 year old female presented to the ED after falling and hitting head and shoulder on concrete. Denies LOC. PMHX dementia, hypertension, hyperlipidemia, and COPD. The pt was walking her dog prior to the fall. She lives at home with her son and daughter in law. She c/o pain in her right shoulder. The ED workup revealed unremarkable lab work up. CT imaging of her cervical spine, chest, and head revealed possible left mandible fracture, laceration to the mild focal scalp, mild to moderate right sided pneumothorax, right 3rd and 4th rib fractures, right scapular fracture, compression fracture of L1 and 5 mm nodule in the right upper lobe which has increased in size since last CT in November of 2022. The ED physician spoke with son and daughter in law regrading findings. Both are POA. They declined transfer to or another trauma center and refused for a chest tube to be placed. [facility] ED physician consulted the hospitalist team for further medical management. The pt was started on a non rebreather for the pneumothorax and given a sling for the scapular fracture. Upon arrival to the medical floor the pt is not in acute distress. She is alert to self and place. She lives at home with POA and the provide 24 hour care for her. She c/o pain in her right side and right arm. A long interactive discussion was had with son, daughter in law, charge nurse, bedside nurse, and myself regrading code status for pt. Pt is admitted as DNR. [facility] Disclaimer: The information contained in this section may have been updated after the patient was seen, as this information can be updated by other users. Medical History Allergic rhinitis Carotid artery stenosis COPD mixed type Dyspnea on exertion Family history of coronary artery disease Hypothyroidism Multiple lung nodules on CT Palpitations Pulmonary emphysema SOB (shortness of breath) Stopped smoking with greater than 30 pack year history Surgical History History of cholecystectomy History of hysterectomy Family History Other Asthma Emphysema of lung Hypertension Hypothyroidism Social History (Updated 05/16/23 @ 04:03 by Miranda Slater RN) Smoking Status: Former smoker tobacco type: cigarettes packs per day: 2 years smoked: 40 smoking status stop date: 12/2021 alcohol intake: never counseling provided: none substance use type: denies use current occupational status: retired Travel in the last 8 weeks: None housing: house number of children: 3 Review of Systems *Cardiovascular Cardiovascular: Reports system reviewed and no additional complaints, except as documented *Respiratory Respiratory: Reports pain with cough *Gastrointestinal Gastrointestinal: Reports system reviewed and no additional complaints, except as documented *Genitourinary Genitourinary: Reports system reviewed and no additional complaints, except as documented *Musculoskeletal Musculoskeletal: Reports limited range of motion (right arm) *Neurologic Neurologic: Reports system reviewed and no additional complaints, except as documented Meds Home Medications and Allergies Home Medications Medication Instructions Recorded Confirmed Type citalopram 20 mg tablet 20 mg PO DAILY MOOD 10/21/22 05/16/23 History potassium chloride 20 mEq 20 meq PO BID Supplement 05/15/23 05/16/23 History tablet,extended release(part/cryst) albuterol sulfate 90 mcg/actuation 2 inh inhalation QIDP PRN 05/16/23 05/16/23 History aerosol inhaler Shortness Of Breath Or Wheezing donepezil 10 mg tablet 10 mg PO DAILY MEMORY 05/16/23 05/16/23 History hydrochlorothiazide 12.5 mg tablet 12.5 mg PO DAILY High Blood 05/16/23 05/16/23 History Pressure levothyroxine 88 mcg tablet 88 mcg PO DAILYDM THYROID 05/16/23
--- NOTE | 2023-05-16 06:43 | PC.NURSE ---
Patient has rested well since admission to [facility]. Pleasant and cooperative with care. Remains on NRB for Pneumothorax. VSS. [place] on. Labs obtained and sent to lab. New IV initiated 22g Left hand-1 attempt-blood [id number] locked.
--- NOTE | 2023-05-16 07:06 | XR_ITS ---
PROCEDURE INFORMATION: Exam: XR Chest Exam date and time: 05/16/2023 7:17 AM Age: 72 years old Clinical indication: Condition or disease; Lung condition and disease; Pneumothorax; Additional info: Eval pneumothorax TECHNIQUE: Imaging protocol: Radiologic exam of the chest. Views: 1 view. COMPARISON: CT CHEST WO CON 05/15/2023 10:56 PM FINDINGS: Lungs: Hyperexpanded lung bob consistent with COPD. No focal consolidation. Pleural spaces: Persistent pneumothorax in the apex measures 4.8 x 4.8 cm. Heart/Mediastinum: Unremarkable. No cardiomegaly. Bones/joints: Degenerative changes in the glenohumeral joints IMPRESSION: 1. Hyperexpanded lung bob consistent with COPD. No focal consolidation. 2. Persistent pneumothorax in the apex measures 4.8 x 4.8 cm.
[2023-05-16 07:10] LABS: Chloride 105 mmol/L (98-107)
[2023-05-16 07:11] LABS: Potassium 4.3 mmoL/L (3.5-5.1); Sodium 140 mmol/L (136-145)
[2023-05-16 07:14] LABS: Anion Gap 14.3 mEq/L (5-15); Blood Urea Nitrogen 30 mg/dl (7-17); Calcium 9.2 mg/dl (8.4-10.2); Carbon Dioxide 25 mmol/L (22.0-30.0); Creatinine Clearance Estimated 49 mL/min (50-200); Estimated Glomerular Filt Rate 40 ml/min (>60); GFR (African American) 49 ML/MIN (>60); Glucose 166 mg/dl (74-100)
[2023-05-16 07:22] LABS: Basophils % 0.1 % (0.1-2.0); Eosinophils % 0.1 % (0.1-12.0); Hematocrit 39.8 % (37.0-47.0); Hemoglobin 13.4 g/dL (12.2-16.2); Lymphocytes # 1.6 K/mm3 (0.7-4.5); Lymphocytes % 12.4 % (10-50); Mean Corpuscular HGB Conc 33.8 g/dL (31.8-35.4); Mean Corpuscular Hemoglobin 31.3 pg (27.0-31.2); Mean Corpuscular Volume 92.8 fl (81-99); Mean Platelet Volume 8.6 fl (7.4-10.4); Monocytes # 0.7 K/mm3 (0.1-1.0); Monocytes % 5.5 % (1.7-9.3); Neutrophils # 10.5 K/mm3 (1.8-7.8); Neutrophils % 81.9 % (37.0-80.0); Platelet Count 357 K/mm3 (142-424); Red Blood Count 4.29 M/mm3 (4.20-5.40); Red Cell Distribution Width 13.8 % (11.5-17.5); White Blood Count 12.8 K/mm3 (4.8-10.8)
[2023-05-16 08:09] LABS: Thyroid Stimulating Hormone 0.03 uIU/mL (0.465-4.68)
--- NOTE | 2023-05-16 10:12 | HMH.PHAINT1 ---
Pharmacy Intervention Comments: MEDICATION RECONCILIATION COMPLETE USING MOST RECENT PULMONOLOGY OFFICE VISIT AND EXTERNAL PHARMACY FILL HISTORY.
--- NOTE | 2023-05-16 11:18 | CT_ITS ---
PROCEDURE INFORMATION: Exam: CT Chest Without Contrast; Diagnostic Exam date and time: 05/16/2023 11:52 AM Age: 72 years old Clinical indication: Condition or disease; Lung condition and disease; Pneumothorax; Additional info: Eval stability of pneumothorax TECHNIQUE: Imaging protocol: Diagnostic computed tomography of the chest without contrast. Radiation optimization: All CT scans at this facility use at least one of these dose optimization techniques: automated exposure control; mA and/or kV adjustment per patient size (includes targeted exams where dose is matched to clinical indication); or iterative reconstruction. REPORTING DATA: Count of CT and Cardiac NM exams in prior 12 months: This patient has received 4 known CTs and 0 known cardiac nuclear medicine studies in the 12 months prior to the current study. COMPARISON: CT CHEST WO CON 05/15/2023 10:56 PM FINDINGS: Lungs: Consolidation in the right middle lobe and right lower lobe may represent atelectasis or pneumonia. There is also increasing atelectasis compared to the prior study. Calcified nodes in the subcarinal region and left hilum The nodule in the right upper lobe is not seen well due to the pneumothorax Pleural spaces: The pneumothorax has increased in size compared to the prior study. For example it now measures 4 cm anterior to the ascending aorta. Series 3, image 30. Previously it measured 19 mm in this region.. Possible right pleural effusion . Heart: Unremarkable. No cardiomegaly. No pericardial effusion. Coronary arteries: Coronary artery calcifications may indicate coronary artery disease. Lymph nodes: See Lungs finding. Vasculature: Unremarkable. No aortic aneurysm. Bones/joints: Mild superior endplate compression fracture of L1. Stable rib fractures. Stable fracture of the right scapula Soft tissues: Unremarkable. IMPRESSION: 1. The pneumothorax has increased in size compared to the prior study. For example it now measures 4 cm anterior to the ascending aorta. Series 3, image 30. Previously it measured 19 mm in this region.. 2. Consolidation in the right middle lobe and right lower lobe may represent atelectasis or pneumonia. There is also increasing atelectasis compared to the prior study. 3. Possible right pleural effusion .
--- NOTE | 2023-05-16 13:27 | XR_ITS ---
PROCEDURE INFORMATION: Exam: XR Chest Exam date and time: 05/16/2023 1:43 PM Age: 72 years old Clinical indication: Device placement; Patient HX: Right side chest tube placement TECHNIQUE: Imaging protocol: Radiologic exam of the chest. Views: 1 view. COMPARISON: CT CHEST WO CON 05/16/2023 11:52 AM FINDINGS: Tubes, catheters and devices: Pigtail catheter on the right. Lungs: Interval re-expansion of the right lung with small pneumothorax evident at the apex and right base. Pleural spaces: Blunted left costophrenic sulcus concerning for increasing effusion. Heart/Mediastinum: Unremarkable. No cardiomegaly. Bones/joints: Unremarkable. IMPRESSION: 1. Pigtail catheter on the right. Interval re-expansion of the right lung with small pneumothorax evident at the apex and right base. 2. Blunted left costophrenic sulcus concerning for increasing effusion.
--- NOTE | 2023-05-16 13:41 | HMH.PROCNOTE ---
[facility] Procedure Note Date: 05/16/23 Time: 13:41 Procedure Note:: Chest tube insertion indication expanding pneumothorax Dr. Nba Myers with [facility] medicine contacted me about a patient who had been admitted to the floor and an expanding pneumothorax. Patient was brought down to the emergency department for me to assist with chest tube placement. Consent was obtained from the patient she was awake alert oriented and understood complications associated with this. Safety centesis catheter was used. Patient was prepped and draped in a sterile fashion ultrasound was used to michelle important landmarks including diaphragm and liver. In the anterior/mid axillary line on the right side 10 cc of 1% lidocaine with epinephrine was used for local anesthesia. An 11 blade incision was made 0.5 cm subsequently inserting the safety centesis catheter there was significant pressure change in the fourth the fifth mid axillary intercostal space. There is air return patient was on a monitor and remained stable during this time. The catheter was then advanced into the lung cavity itself. Chest x-ray was performed which confirmed expansion of the lung with improvement in the pneumothorax. Catheter was in a good place. 2 sutures were used to secure the catheter in place. Xeroform and dressing to create a clean occlusive dressing was used over top of the catheter itself. Chest to be set up and continuous suction was initiated. Patient tolerated the procedure well pneumothorax was appropriately evacuated.
--- NOTE | 2023-05-16 14:03 | PC.NURSE ---
Addendum entered by Dior Rojo RN 05/16/23 14:04: returned to floor 1350 Original Note: 1300 pt transported to ER, via stretcher for chest tube placement by Dr Alcala. Sunitha Ramirez RN, Warner Rojo RN, and Dr Myers at bedside.
--- NOTE | 2023-05-16 14:11 | PC.NURSE ---
[address] Myers, transfer pt to stepdown following chest tube insertion in ER
--- NOTE | 2023-05-16 14:48 | EXP.ORTH.CON ---
History of Present Illness *Admission Date: 05/16/23 *History of present illness: 72 year old female presented to the ED after falling and hitting head and shoulder on concrete. Denies LOC. PMHX dementia, hypertension, hyperlipidemia, and COPD. The pt was walking her dog prior to the fall. She lives at home with her son and daughter in law. She c/o pain in her right shoulder. The ED workup revealed unremarkable lab work up. CT imaging of her cervical spine, chest, and head revealed possible left mandible fracture, laceration to the mild focal scalp, mild to moderate right sided pneumothorax, right 3rd and 4th rib fractures, right scapular fracture, compression fracture of L1 and 5 mm nodule in the right upper lobe which has increased in size since last CT in November of 2022. The ED physician spoke with son and daughter in law regrading findings. Both are POA. She had chest tube placed today with good reexpansion of the pneumothorax on the right side. Orthopedics consulted in regards to treatment recommendations for right scapular fracture and lumbar spine compression fracture [facility] Disclaimer: The information contained in this section may have been updated after the patient was seen, as this information can be updated by other users. Medical History Allergic rhinitis Carotid artery stenosis COPD mixed type Dyspnea on exertion Family history of coronary artery disease Hypothyroidism Multiple lung nodules on CT Palpitations Pulmonary emphysema SOB (shortness of breath) Stopped smoking with greater than 30 pack year history Surgical History History of cholecystectomy History of hysterectomy Family History Other Asthma Emphysema of lung Hypertension Hypothyroidism Social History Smoking Status: Former smoker tobacco type: cigarettes packs per day: 2 years smoked: 40 smoking status stop date: 12/2021 alcohol intake: never counseling provided: none substance use type: denies use current occupational status: retired Travel in the last 8 weeks: None housing: house number of children: 3 Review of Systems *Neurologic Neurologic: Reports system reviewed and no additional complaints, except as documented Meds Home Medications and Allergies Home Medications Medication Instructions Recorded Confirmed Type citalopram 20 mg tablet 20 mg PO DAILY MOOD 10/21/22 05/16/23 History potassium chloride 20 mEq 20 meq PO BID Supplement 10/14/23 10/15/23 History tablet,extended release(part/cryst) albuterol sulfate 90 mcg/actuation 2 inh inhalation QIDP PRN 05/16/23 05/16/23 History aerosol inhaler Shortness Of Breath Or Wheezing donepezil 10 mg tablet 10 mg PO DAILY MEMORY 05/16/23 05/16/23 History hydrochlorothiazide 12.5 mg tablet 12.5 mg PO DAILY High Blood 05/16/23 05/16/23 History Pressure levothyroxine 88 mcg tablet 88 mcg PO DAILYDM THYROID 05/16/23 05/16/23 History lovastatin 20 mg tablet 20 mg PO HS Cholesterol 05/16/23 05/16/23 History memantine 10 mg tablet 10 mg PO BID MEMORY 05/16/23 05/16/23 History metoprolol succinate 25 mg 25 mg PO DAILY High Blood Pressure 05/16/23 05/16/23 History tablet,extended release 24 hr rivastigmine 4.6 mg/24 hour 4.6 mg transdermal DAILY MEMORY 05/16/23 05/16/23 History transdermal patch tiotropium 2.5 mcg-olodaterol 2.5 2 puff inhalation DAILY Copd 05/16/23 05/16/23 History mcg/actuation mist for inhalation (Stiolto Respimat) New Prescriptions to Start Prescriptions: Allergies Allergy/AdvReac Type Severity Reaction Status Date / Time codeine [CODEINE] Allergy Severe RAPID Verified 10/27/22 13:07 HEART BEAT,CHEST PAIN Ortho Exam (Inpt) Vital signs and Labs for Last 24 Hours: Temp Pulse Resp BP Pulse Ox O2 Del Method O2 Flow Rate 98.4 F 77 20
[2023-05-17] VITALS (17 sets, daily range): BP systolic 116–174; BP diastolic 58–90; PULSE 80–100; RESP 18–29; TEMP 36.8–37.3; O2SAT 93–100; BMI 28.3; BMI 29.0
--- NOTE | 2023-05-17 05:19 | PC.NURSE ---
Pt AOx3 (sans time) and pleasantly cooperative throughout shift. DIL and son remained at bedside and assisted nursing team with care. Pt VSS on 15 L NRB. Educated pt and family purpose and benefit of IS, pt returned demonstration, and family stated she had been practicing with them and tolerating when nursing not at bedside. Pigtail CT remained in place, decreased breath sounds on R side of chest. Lidocaine patch in place, pt denies any pain at this moment. One incontinent void and linen change on shift. No other acute needs at this time.
[2023-05-17 06:36] LABS: Chloride 104 mmol/L (98-107); Potassium 3.9 mmoL/L (3.5-5.1); Sodium 137 mmol/L (136-145)
[2023-05-17 06:39] LABS: Alanine Aminotransferase 21 U/L (12-78); Albumin Level 3.6 g/dl (3.5-5.0); Alkaline Phosphatase 91 U/L (38-126); Anion Gap 10.9 mEq/L (5-15); Aspartate Amino Transferase 28 U/L (14-36); Bilirubin,Total 0.7 mg/dl (0.2-1.3); Blood Urea Nitrogen 21 mg/dl (7-17); Calcium 9.1 mg/dl (8.4-10.2); Carbon Dioxide 26 mmol/L (22.0-30.0); Creatinine Clearance Estimated 62 mL/min (50-200); Estimated Glomerular Filt Rate 55 ml/min (>60); GFR (African American) 66 ML/MIN (>60); Globulin 3.5 g/dL (1.3-3.2); Glucose 139 mg/dl (74-100); Total Protein,Serum 7.1 g/dl (6.3-8.2)
[2023-05-17 06:40] LABS: Magnesium 1.5 mg/dl (1.6-2.3)
[2023-05-17 06:41] LABS: Basophils % 0.2 % (0.1-2.0); Eosinophils # 0.1 K/mm3 (0.0-0.4); Eosinophils % 0.5 % (0.1-12.0); Hematocrit 39.7 % (37.0-47.0); Hemoglobin 13.4 g/dL (12.2-16.2); Lymphocytes # 1.6 K/mm3 (0.7-4.5); Lymphocytes % 13.7 % (10-50); Mean Corpuscular HGB Conc 33.6 g/dL (31.8-35.4); Mean Corpuscular Hemoglobin 31.1 pg (27.0-31.2); Mean Corpuscular Volume 92.5 fl (81-99); Mean Platelet Volume 8.4 fl (7.4-10.4); Monocytes # 0.6 K/mm3 (0.1-1.0); Monocytes % 5.2 % (1.7-9.3); Neutrophils # 9.5 K/mm3 (1.8-7.8); Neutrophils % 80.5 % (37.0-80.0); Platelet Count 295 K/mm3 (142-424); Red Blood Count 4.29 M/mm3 (4.20-5.40); White Blood Count 11.8 K/mm3 (4.8-10.8)
[2023-05-17 06:51] LABS: Prothrombin Time 10.8 seconds (10.1-12.5)
--- NOTE | 2023-05-17 08:08 | PC.NURSE ---
removed lidocaine patch from Right scapula
--- NOTE | 2023-05-17 09:32 | EXP.ACUTE.PN ---
Subjective *Date: 05/17/23 *Time: 09:32 Interval history: Patient is a little can use this morning but oriented to self. Has had pain on right side of her chest with minimal touch. No fever overnight. Hemodynamically stable. Tolerating nonrebreather with sats 100%. No nausea or vomiting. Medical Exam Vital signs and Labs for Last 24 Hours: Vital Signs Temp Pulse Pulse Resp BP Pulse Ox O2 Del Method 05/17/23 08:00 91 H 29 H 158/77 H 100 05/17/23 08:00 98.6 F 05/17/23 07:00 Non-Rebreather 05/17/23 06:05 86 05/17/23 06:05 86 05/17/23 06:05 100 Non-Rebreather 05/17/23 06:00 92 H 24 174/90 H Non-Rebreather 05/17/23 04:00 90 05/17/23 05:00 Non-Rebreather 05/17/23 04:00 99.0 F 86 24 147/79 H Non-Rebreather 05/17/23 03:00 Non-Rebreather 05/17/23 02:00 92 H 24 147/81 H 100 Non-Rebreather 05/17/23 01:00 Non-Rebreather 05/17/23 00:00 93 L Non-Rebreather 05/17/23 00:00 90 05/17/23 00:00 98.2 F 89 24 149/58 H Non-Rebreather 05/17/23 00:00 Non-Rebreather 05/16/23 23:50 81 05/16/23 23:50 82 05/16/23 23:00 Non-Rebreather 05/16/23 22:00 85 20 136/74 100 Non-Rebreather 05/16/23 21:00 Non-Rebreather 05/16/23 20:00 Non-Rebreather 05/16/23 20:00 98.2 F 76 22 123/67 100 Non-Rebreather 05/16/23 20:00 80 05/16/23 18:41 Non-Rebreather 05/16/23 18:00 80 20 122/55 L 100 Non-Rebreather 05/16/23 17:30 76 18 137/77 92 L Nasal Cannula 05/16/23 17:00 70 18 122/81 100 Nasal Cannula 05/16/23 16:30 75 20 149/88 H 100 Non-Rebreather 05/16/23 18:03 80 05/16/23 18:03 80 05/16/23 18:03 99 Non-Rebreather 05/16/23 17:40 Non-Rebreather 05/16/23 16:00 74 05/16/23 16:00 75 20 156/76 H 100 Non-Rebreather 05/16/23 15:30 74 18 152/84 H 100 Non-Rebreather 05/16/23 15:00 76 20 137/78 100 Non-Rebreather 05/16/23 14:30 76 18 138/77 100 Non-Rebreather 05/16/23 16:00 100 Non-Rebreather 05/16/23 14:00 82 20 168/59 H 100 Non-Rebreather 05/16/23 15:10 Non-Rebreather 05/16/23 14:12 77 100 Non-Rebreather 05/16/23 14:09 Non-Rebreather 05/16/23 13:00 79 20 141/85 H 100 Non-Rebreather 05/16/23 12:00 98.4 F 74 20 132/74 100 Non-Rebreather 05/16/23 11:53 76 05/16/23 11:53 72 05/16/23 11:53 98 Non-Rebreather 05/16/23 11:00 Non-Rebreather 05/16/23 09:54 Non-Rebreather O2 Flow Rate FiO2 05/17/23 08:00 05/17/23 08:00 05/17/23 07:00 15 05/17/23 06:05 05/17/23 06:05 05/17/23 06:05 15 05/17/23 06:00 15 100 05/17/23 04:00 05/17/23 05:00 15 05/17/23 04:00 15 100 05/17/23 03:00 15 05/17/23 02:00 15 100 05/17/23 01:00 15 05/17/23 00:00 15 05/17/23 00:00 05/17/23 00:00 15 100 05/17/23 00:00 15 100 05/16/23 23:50 05/16/23 23:50 05/16/23 23:00 15 05/16/23 22:00 15 100 05/16/23 21:00 15 05/16/23 20:00 15 100 05/16/23 20:00 15 100 05/16/23 20:00 05/16/23 18:41 15 05/16/23 18:00 100 05/16/23 17:30 4 05/16/23 17:00 15 05/16/23 16:30 15 100 05/16/23 18:03 05/16/23 18:03 05/16/23 18:03 15 05/16/23 17:40 05/16/23 16:00 05/16/23 16:00 05/16/23 15:30 05/16/23 15:00 05/16/23 14:30 05/16/23 16:00 05/16/23 14:00 05/16/23 15:10 05/16/23 14:12 05/16/23 14:09 05/16/23 13:00 05/16/23 12:00 05/16/23 11:53 05/16/23 11:53 05/16/23 11:53 15 05/16/23 11:00 05/16/23 09:54 Intake and Output 05/16/23 05/17/23 05/17/23 23:59 07:59 15:59 Intake Total 240 / 240 0 / 240 240 / 240 Output Total 0 / 0 0 / 0 Balance 240 / 240 0 / 240 240 / 240 Intake: Intake, Oral Amount 240 / 240 0 / 240 240 / 240 Output: Output, Urine Amount 0 / 0 0 / 0 Output, Chest Tube D
--- NOTE | 2023-05-17 09:37 | EXP.PULM.CON ---
History of Present Illness History of present illness: Ms. Odell is a 72-year-old female greater than [id number] smoking history following in pulmonary clinic for COPDpresent to the hospital status post fall and found to be having right-sided pneumothorax and pulmonary was consulted for further evaluation and management. [facility] Disclaimer: The information contained in this section may have been updated after the patient was seen, as this information can be updated by other users. Medical History Allergic rhinitis Carotid artery stenosis COPD mixed type Dyspnea on exertion Family history of coronary artery disease Hypothyroidism Multiple lung nodules on CT Palpitations Pulmonary emphysema SOB (shortness of breath) Stopped smoking with greater than 30 pack year history Surgical History History of cholecystectomy History of hysterectomy Family History Other Asthma Emphysema of lung Hypertension Hypothyroidism Social History Smoking Status: Former smoker tobacco type: cigarettes packs per day: 2 years smoked: 40 smoking status stop date: 12/2021 alcohol intake: never counseling provided: none substance use type: denies use current occupational status: retired Travel in the last 8 weeks: None housing: house number of children: 3 Review of Systems Constitutional Constitutional: Reports anorexia, Reports body ache(s) and Reports fatigue Eyes Eyes: Denies eye discharge, Denies dry eyes, Denies irritation and Denies itchy eyes ENT Ears, Nose, Mouth, and Throat: Denies epistaxis, Denies facial pain, Denies lip swelling and Denies throat swelling *Cardiovascular Cardiovascular: Reports dyspnea and Reports dyspnea on exertion *Respiratory Respiratory: Denies chest congestion, Reports dyspnea, Reports dyspnea on exertion, Denies excessive phlegm production and Denies wheezing *Gastrointestinal Gastrointestinal: Denies abdominal pain, Denies belching and Denies cramping *Musculoskeletal Musculoskeletal: Reports back pain, Reports deformity, Reports myalgias and Reports other (No small joint swelling or Pain) Comments: Rt shoulder and hand pain *Neurologic Neurologic: Reports system reviewed and no additional complaints, except as documented Psychiatric Psychiatric: Denies homicidal ideation and Denies suicidal ideation Endocrine Endocrine: Reports fatigue and Denies heat intolerance Hematologic/Lymphatic Hematologic/Lymphatic: Denies easy bleeding and Denies lymphadenopathy Allergic/Immunologic Allergic/Immunologic: Denies itchy eyes, Denies lip swelling, Denies throat swelling and Denies wheezing Pulmonology Exam Inpatient Vital signs and Labs for Last 24 Hours: Temp Pulse Resp BP Pulse Ox O2 Del Method O2 Flow Rate 98.6 F 91 H 29 H 158/77 H 100 Non-Rebreather 15 05/17/23 08:00 05/17/23 08:00 05/17/23 08:00 05/17/23 08:00 05/17/23 08:00 05/17/23 07:00 05/17/23 07:00 FiO2 100 05/17/23 06:00 Laboratory Results - last 24 hr 05/17/23 06:07: WBC 11.8 H, RBC 4.29, Hgb 13.4, Hct 39.7, MCV 92.5, MCH 31.1, MCHC 33.6, RDW 14.0, Plt Count 295, MPV 8.4, Neut % (Auto) 80.5 H, Lymph % (Auto) 13.7, Harlan % (Auto) 5.2, Eos % (Auto) 0.5, Baso % (Auto) 0.2, Neut # (Auto) 9.5 H, Lymph # (Auto) 1.6, Harlan # (Auto) 0.6, Eos # (Auto) 0.1, Baso # (Auto) 0.0, PT 10.8, INR 1.00, Sodium 137, Potassium 3.9, Chloride 104, Carbon Dioxide 26, Anion Gap 10.9, BUN 21 H D, Creatinine 1.00 D, Estimated Creat Clear 62, Estimated GFR 55 L, Est GFR ( Amer) 66 D, Glucose 139 H, Calcium 9.1, Magnesium 1.5 L, Total Bilirubin 0.7, AST 28, ALT 21, Alkaline Phosphatase 91, Total Protein 7.1, Albumin 3.6, Globulin 3.5 H, Albumin/Globulin Ratio 1.0 L I & O for Labs for Last 24 Hours: Intake & Output 05/14/23 05/15/23 05/16/23 05/17/23 23:59 23
--- NOTE | 2023-05-17 09:40 | XR_ITS ---
FINAL REPORT TECHNIQUE: Single view chest CLINICAL HISTORY: Pneumothorax COMPARISON: 05/16/2023 FINDINGS: A single view of the chest was obtained. The heart and mediastinum are within normal limits. There has been interval placement of a right pleural catheter. Bibasilar opacities are seen, favor atelectasis. There is no pneumothorax. Osseous structures are unremarkable. IMPRESSION: Interval placement of right pleural catheter. No pneumothorax. Bibasilar opacities, favor atelectasis. Reviewed, Interpreted and Dictated by Hubert Villasenor III, MD Transcribed by Carmen Avalos Authenticated and [facility]
--- NOTE | 2023-05-17 10:42 | HMH.PTEV ---
Physical Therapy Evaluation Rehab PT IP Evaluation Start: 05/16/23 02:24 Freq: ONCE Status: Active Protocol: Document 05/17/23 10:31 PHORNE (Rec: 05/17/23 10:42 PHORNE [id number]) Subjective/History History History 72 yowf adm to [facility] after ground level fall with reuslting R scapular fx, rib fxs, and pneumothorax. Sh has PMH of dementia, HTN, HLD, and COPD. She lives with family at baseline and has 24 hr assist due to her dementia. No steps to enter the home and she is generally independent with all mobility prior to adm . Subjective Subjective Pt c/o pain in the R SHLD and flank during treatment. She does agrees to OOB mobility assessment. Currently has chest tube to wall suction and oxygen on via non-rebreather mask at all times. New diagnosis of cancer in past 12 No months? Rehab PT IP Eval Objective Appearance Patient Behavior Appropriate Patient Orientation Person Difficulty following instructions mild Speech Pattern Clear,Delayed Ambulation Patient Able to Ambulate Yes Ambulation Observation IP General Gait Pattern Observation Shuffling Step Ambulation Distance (feet) 3 Ambulation Assistive Device None Ambulation Ability Minimal x 2 (25% assist) Balance Ability to Arise Able, uses arms to help Sitting Balance Leans or slides in chair Standing Balance Steady, wide stance Dynamic Sitting Balance Ability Fair Dynamic Standing Balance Ability Fair Transfers Bed Transfer Ability Moderate x 2 (50% assist) Chair Transfer Ability Minimal x 2 (25% assist) Sit to Stand Bed Transfer Ability Minimal x 2 (25% assist) Sit to Stand Chair Transfer Ability Minimal x 2 (25% assist) ROM RUE PT ROM Status ABN Abnormal ROM Comment NT due to scap fx MMT RUE PT MMT ABN Abnormal MMT Grade NT due to scap fx Rehab PT IP prob,goals,plan Problems Date of Evaluation: 05/17/23 PT IP Problems Bed Mobility,Transfers,Gait, Self care Rehab Potential Rehab Potential Good Plan PT Intervention Plan Bed Mobility,Transfers,Gait,
--- NOTE | 2023-05-17 14:07 | PC.NURSE ---
Report received from Michela Du RN. Chest Tube clamped via orders per MD Rodriguez.
--- NOTE | 2023-05-17 17:46 | CT_ITS ---
PROCEDURE INFORMATION: Exam: CT Abdomen And Pelvis Without Contrast Exam date and time: 05/17/2023 6:20 PM Age: 72 years old Clinical indication: Vomiting; Additional info: Vomiting, eval for abdominal trauma/obstruction TECHNIQUE: Imaging protocol: Computed tomography of the abdomen and pelvis without contrast. Radiation optimization: All CT scans at this facility use at least one of these dose optimization techniques: automated exposure control; mA and/or kV adjustment per patient size (includes targeted exams where dose is matched to clinical indication); or iterative reconstruction. REPORTING DATA: Count of CT and Cardiac NM exams in prior 12 months: This patient has received 5 known CTs and 0 known cardiac nuclear medicine studies in the 12 months prior to the current study. COMPARISON: CT CHEST WO CON 05/16/2023 11:52 AM FINDINGS: Tubes, catheters and devices: Right chest pigtail catheter partially imaged. Lungs: Scattered areas of bronchial wall thickening which are likely chronic inflammatory. A few areas of subpleural reticulation are noted, nonspecific. Parenchymal consolidations versus atelectasis at the lung bases. Small bilateral effusions. Liver: Normal. No mass. Gallbladder and bile ducts: The patient is status post cholecystectomy. Pancreas: There is fatty replacement of the pancreas. Spleen: There are multiple calcifications in the spleen most likely reflects small granulomas. Adrenal glands: 1.8 cm left adrenal adenoma. Kidneys and ureters: Punctate nonobstructing left midpole intrarenal calculus. Stomach and bowel: There is mild wall thickening of the colon which could reflect underdistention or inflammatory change such as colitis. Moderate fluid distention of small-bowel loops distally without a focal point of obstruction identified findings may reflect advanced enteritis but a partial small bowel obstruction is difficult to exclude and correlation with symptoms is recommended. Appendix: No evidence of appendicitis. Intraperitoneal space: Small volume ascites. Vasculature: There is atherosclerotic disease of the visualized aorta and its major branch vessels. Lymph nodes: There are mildly prominent but nonenlarged and nonspecific retroperitoneal nodes. Mildly prominent nodes in the central mesentery, nonspecific. Urinary bladder: There is moderate distention of the urinary bladder. Reproductive: The patient has undergone prior hysterectomy. Bones/joints: There is diffuse degenerative disease of the visualized osseous structures. Age-indeterminate compression deformity of L1, stable. Soft tissues: Unremarkable. IMPRESSION: Moderate fluid distention of small-bowel loops distally without a focal point of obstruction identified; findings may reflect advanced enteritis but a partial small bowel obstruction is difficult to exclude and correlation with exam is recommended. COMMENTS: Consistent with the [employer]'s Incidental Findings Committee white paper (J Am Noel Radiol 2017): For any incidental adrenal lesion greater than or equal to 1 cm but less than or equal to 4 cm classified in this report as benign, likely benign, or containing fat (including classification as an adenoma or myelolipoma), no follow-up imaging is recommended per consensus recommendations based on imaging criteria. Further lab evaluation could be pursued if warranted based on clinical findings.
--- NOTE | 2023-05-17 19:10 | PC.NURSE ---
Pt became Nauseous after raising HOB for dinner this evening. Pt vomited a large amount of green bile. notified. Medicated per sep. CT obtained. Pt will get CXR at 1999. Chest tube remains clamped at this time. Pt is currently sleeping. VSS currently. Family at bedside.
--- NOTE | 2023-05-17 20:00 | XR_ITS ---
PROCEDURE INFORMATION: Exam: XR Chest Exam date and time: 05/17/2023 8:25 PM Age: 72 years old Clinical indication: Condition or disease; Lung condition and disease; Pneumothorax; Prior surgery; Surgery date: Post-operative (0-2 days); Surgery type: Right chest tube TECHNIQUE: Imaging protocol: Radiologic exam of the chest. Views: 1 view. COMPARISON: CR XR CHEST PORTABLE 05/17/2023 10:05 AM FINDINGS: A right thoracic pleural 2 is unchanged, distal portion looped over the inferolateral right hemithorax, as before. Lungs: Lung volumes are mildly diminished. There are mild linear markings in the left lower lobe which appear mildly increased. The lungs appear otherwise clear. No focal areas of consolidation. Pleural spaces: Mild blunting of both costophrenic angle suggests trace effusions. Negative for pneumothorax. Heart/Mediastinum: Cardiac silhouette and pulmonary vasculature are within range of normal. Bones/joints: There is no evidence of acute fracture. The thoracic spine demonstrates mild degenerative changes at multiple levels. Mild convex right thoracic scoliosis is stable. IMPRESSION: 1. Lung volumes mildly diminished. 2. Mild linear markings in the left lower lobe appear mildly increased. 3. Mild blunting of both costophrenic angle suggests trace effusions. 4. Stable right pleural drainage catheter.
--- NOTE | 2023-05-17 20:52 | PC.NURSE ---
Communicated order per Dr. Boogie to leave pigtail clamped.
[2023-05-18] VITALS (15 sets, daily range): BP systolic 101–144; BP diastolic 58–75; PULSE 70–100; RESP 14–29; TEMP 36.8–37.2; O2SAT 90–100; BMI 28.1
--- NOTE | 2023-05-18 04:25 | PC.NURSE ---
Pt visibly tired and requires shaking to arouse throughout shift, AOx2 (person, place), and remained pleasant throughout shift. Administered 2000 fleet enema, but no BM yet. Notified CAMILA Thurman during rounds, but no additional orders at this time. ABD soft, non-tender, with normoactive sounds throughout shift. Family reported only one episode of pt hiccupping, but pt denied N/V through most of shift. Notified GEOLOGICAL DRAFTER of CXR results. Per Dr. Boogie, leave CT clamped. Pt remains on 15 L NRB mask, SpO2 100%, no distress. Pt tolerating well and turned intermittently throughout shift to promote BM. VSS, family at bedside, no acute needs at this time.
[2023-05-18 05:59] LABS: Basophils % 0.4 % (0.1-2.0); Eosinophils # 0.2 K/mm3 (0.0-0.4); Eosinophils % 1.7 % (0.1-12.0); Hematocrit 38.2 % (37.0-47.0); Hemoglobin 12.9 g/dL (12.2-16.2); Lymphocytes # 1.9 K/mm3 (0.7-4.5); Lymphocytes % 17.3 % (10-50); Mean Corpuscular HGB Conc 33.8 g/dL (31.8-35.4); Mean Corpuscular Hemoglobin 31.5 pg (27.0-31.2); Mean Corpuscular Volume 93.3 fl (81-99); Mean Platelet Volume 8.6 fl (7.4-10.4); Monocytes # 0.6 K/mm3 (0.1-1.0); Monocytes % 5.7 % (1.7-9.3); Neutrophils # 8.2 K/mm3 (1.8-7.8); Neutrophils % 74.9 % (37.0-80.0); Platelet Count 275 K/mm3 (142-424); White Blood Count 10.9 K/mm3 (4.8-10.8)
[2023-05-18 06:06] LABS: Chloride 104 mmol/L (98-107); Sodium 139 mmol/L (136-145)
[2023-05-18 06:07] LABS: Potassium 3.9 mmoL/L (3.5-5.1)
[2023-05-18 06:09] LABS: Alanine Aminotransferase 20 U/L (12-78); Albumin Level 3.2 g/dl (3.5-5.0); Alkaline Phosphatase 74 U/L (38-126); Anion Gap 8.9 mEq/L (5-15); Aspartate Amino Transferase 26 U/L (14-36); Bilirubin,Total 0.8 mg/dl (0.2-1.3); Blood Urea Nitrogen 25 mg/dl (7-17); Carbon Dioxide 30 mmol/L (22.0-30.0); Creatinine Clearance Estimated 56 mL/min (50-200); Estimated Glomerular Filt Rate 49 ml/min (>60); GFR (African American) 59 ML/MIN (>60); Globulin 3.1 g/dL (1.3-3.2); Total Protein,Serum 6.3 g/dl (6.3-8.2)
[2023-05-18 06:10] LABS: Calcium 8.7 mg/dl (8.4-10.2); Glucose 114 mg/dl (74-100)
[2023-05-18 06:14] LABS: Magnesium 1.6 mg/dl (1.6-2.3)
--- NOTE | 2023-05-18 07:00 | XR_ITS ---
FINAL REPORT CLINICAL HISTORY: Pneumothorax COMPARISON: 05/17/2023 FINDINGS: SINGLE-VIEW CHEST The heart size is normal. The mediastinum is normal. There is persistent bibasilar atelectasis. Right pleural catheter remains in place. There is no pneumothorax. IMPRESSION: Persistent bibasilar atelectasis. Reviewed, Interpreted and Dictated by Hubert Villasenor III, MD Transcribed by Ruth Gonzalez Authenticated and [facility]
--- NOTE | 2023-05-18 10:36 | SW/DCPLANNER ---
Addendum entered by Loulou Deleon 05/19/23 13:27: Nataliia w/ [facility] stated that services will begin this week for this patient. Addendum entered by Loulou Deleon 05/19/23 09:53: The plan for this patient is to discharge home today w/ family. [facility] has set up DME at home including hospital bed and BSC. Patient information/order will be faxed to [facility] this AM. I will follow up w/ Nataliia at [facility] once information/order is reviewed. Addendum entered by Loulou Deleon 05/18/23 13:55: [facility] did make contact w/ patient's family regarding DME ordered and scheduled delivery time. Patient's family also prefers to use [facility] for home health services at discharge. I will arrange home health on the day of discharge. Original Note: I spoke w/ this patient, son and daughter in law regarding discharge plans. Patient was drifting in and out of sleep during conversation and stated that son and daughter in law are POA's. PT stated that patient could return home w/ 22/02 care and home health OR SNF level of care. Son and daughter in law prefer that patient return home w/ home health services and daughter in law is present at home 22/02. Daughter in law would like to make some phone calls prior to making a decision on home health agency. Patient's family has also requested a bedside commode and hospital bed to be ordered at home through [facility]: this will be ordered today. I will continue to follow up w/ patient and family until medically stable for discharge. Discharge date is unknown at this time. Home health services will be set up at time of discharge.
--- NOTE | 2023-05-18 10:39 | PC.NURSE ---
MD Kelley removed chest tube and placed right mid-axillary dressing, non-rebreather removed and 2LNC placed on pt and oxygen saturations 99-100% 2LNC
--- NOTE | 2023-05-18 11:52 | P.PN_ITS ---
Subjective *Date: 05/18/23 *Time: 11:54 Interval history: No acute respiratory vents overnight. Pulmonology Exam Inpatient Vital signs and Labs for Last 24 Hours: Temp Pulse Resp BP Pulse Ox O2 Del Method O2 Flow Rate 98.4 F 71 17 101/58 L 100 Non-Rebreather 15 05/18/23 07:55 05/18/23 10:00 05/18/23 10:00 05/18/23 10:00 05/18/23 10:00 05/18/23 10:00 05/18/23 10:00 FiO2 100 05/18/23 06:00 Laboratory Results - last 24 hr 05/18/23 05:40: WBC 10.9 H, RBC 4.10 L, Hgb 12.9, Hct 38.2, MCV 93.3, MCH 31.5 H , MCHC 33.8, RDW 14.0, Plt Count 275, MPV 8.6, Neut % (Auto) 74.9, Lymph % (Auto) 17.3, Harper % (Auto) 5.7, Eos % (Auto) 1.7, Baso % (Auto) 0.4, Neut # (Auto) 8.2 H, Lymph # (Auto) 1.9, Harper # (Auto) 0.6, Eos # (Auto) 0.2, Baso # (Auto) 0.0, Sodium 139, Potassium 3.9, Chloride 104, Carbon Dioxide 30, Anion Gap 8.9, BUN 25 H, Creatinine 1.10 H, Estimated Creat Clear 56, Estimated GFR 49 L, Est GFR ( Amer) 59, Glucose 114 H, Calcium 8.7, Magnesium 1.6, Total Bilirubin 0.8, AST 26, ALT 20, Alkaline Phosphatase 74, Total Protein 6.3, Albumin 3.2 L D, Globulin 3.1, Albumin/Globulin Ratio 1.0 L I & O for Labs for Last 24 Hours: Intake & Output 05/15/23 05/16/23 05/17/23 05/18/23 23:59 23:59 23:59 23:59 Intake Total 240 / 240 600 / 600 0 / 0 Output Total 0 / 0 350 / 350 100 / 100 Balance 240 / 240 250 / 250 -100 / -100 Weight 176 lb 170 lb 2 oz 166 lb 3.657 oz 164 lb 14.492 oz Constitutional: Present mild distress Head: Present normocephalic and atraumatic ENT: Present normal exam, normal oropharynx and mucous membranes moist Neck: Present normal inspection and full ROM Respiratory: Present able to speak in complete sentences; Absent respiratory distress, wheezes, crackles or diminished air movement Comment:: 7.[address] Cardiac: Present S1/S2, Tachycardia and radial pulses present GI: Present soft and distention; Absent tenderness or guarding Rectal (female): Present deferred (female): Present deferred Skin: Present intact; Absent cyanosis or jaundice Neuro: Present alert, awake and oriented x 3 Extremities: Present normal inspection; Absent clubbing or cyanosis Psychiatric: Present normal affect and cooperative Assessment and Plan *Assessment and plan (1) Pneumothorax on right: Status: Acute Category: Medical Code(s): J93.9 - Pneumothorax, unspecified (2) COPD mixed type: Status: Chronic Category: Medical Code(s): J44.9 - Chronic obstructive pulmonary disease, unspecified Plan #Right Pneumothorax: # COPD: 72-year-old female history of COPD on Stiolto inhaler presented to hospital status post fall currently have right-sided pneumothorax on initial CT scan upon admission subsequent CT showed worsening pneumothorax status post 7.5 Prydeinig catheter placed by the ER. On NRM since admission, chest tube clamped for the last 12 hts with no worsening pnemothorax. Plan: - wean to NC / RA as needed - Removed chest tube this morning - F/U repeat CXR in 4 hrs - Duo nebs Q8 hrs scheduled
--- NOTE | 2023-05-18 12:05 | EXP.PULM.CON ---
History of Present Illness History of present illness: The consult note from yesterday accidentally deleted, is a replacement for the consult note from 05/17/2023. Ms. Odell is 72-year-old female history of COPD following in pulmonary clinic for COPD and pulmonary nodules presented to the hospital status post fall and found to have right-sided pneumothorax and pulmonary was called for further evaluation and management [facility] Disclaimer: The information contained in this section may have been updated after the patient was seen, as this information can be updated by other users. Medical History Allergic rhinitis Carotid artery stenosis COPD mixed type Dyspnea on exertion Family history of coronary artery disease Hypothyroidism Multiple lung nodules on CT Palpitations Pulmonary emphysema SOB (shortness of breath) Stopped smoking with greater than 30 pack year history Surgical History History of cholecystectomy History of hysterectomy Family History Other Asthma Emphysema of lung Hypertension Hypothyroidism Social History Smoking Status: Former smoker tobacco type: cigarettes packs per day: 2 years smoked: 40 smoking status stop date: 12/2021 alcohol intake: never counseling provided: none substance use type: denies use current occupational status: retired Travel in the last 8 weeks: None housing: house number of children: 3 Review of Systems Constitutional Constitutional: Reports anorexia, Reports body ache(s) and Reports fatigue Eyes Eyes: Denies eye discharge, Denies dry eyes, Denies irritation and Denies itchy eyes ENT Ears, Nose, Mouth, and Throat: Denies epistaxis, Denies facial pain, Denies lip swelling and Denies throat swelling *Cardiovascular Cardiovascular: Reports dyspnea and Reports dyspnea on exertion *Respiratory Respiratory: Reports dyspnea, Reports dyspnea on exertion, Denies excessive phlegm production, Denies hemoptysis, Denies pain on inspiration, Denies pain with cough and Denies wheezing *Gastrointestinal Gastrointestinal: Denies abdominal pain, Denies belching and Denies cramping *Musculoskeletal Musculoskeletal: Reports back pain, Reports myalgias and Reports other (No small joint swelling or Pain) Comments: Shoulder pain *Neurologic Neurologic: Reports system reviewed and no additional complaints, except as documented Psychiatric Psychiatric: Denies homicidal ideation and Denies suicidal ideation Endocrine Endocrine: Reports fatigue and Denies heat intolerance Hematologic/Lymphatic Hematologic/Lymphatic: Denies easy bleeding and Denies lymphadenopathy Allergic/Immunologic Allergic/Immunologic: Denies itchy eyes, Denies lip swelling, Denies throat swelling and Denies wheezing Pulmonology Exam Inpatient Vital signs and Labs for Last 24 Hours: Temp Pulse Resp BP Pulse Ox O2 Del Method O2 Flow Rate 98.4 F 71 17 101/58 L 100 Non-Rebreather 15 05/18/23 07:55 05/18/23 10:00 05/18/23 10:00 05/18/23 10:00 05/18/23 10:00 05/18/23 10:00 05/18/23 10:00 FiO2 100 05/18/23 06:00 Laboratory Results - last 24 hr 05/18/23 05:40: WBC 10.9 H, RBC 4.10 L, Hgb 12.9, Hct 38.2, MCV 93.3, MCH 31.5 H, MCHC 33.8, RDW 14.0, Plt Count 275, MPV 8.6, Neut % (Auto) 74.9, Lymph % (Auto) 17.3, [place] % (Auto) 5.7, Eos % (Auto) 1.7, Baso % (Auto) 0.4, Neut # (Auto) 8.2 H, Lymph # (Auto) 1.9, [place] # (Auto) 0.6, Eos # (Auto) 0.2, Baso # (Auto) 0.0, Sodium 139, Potassium 3.9, Chloride 104, Carbon Dioxide 30, Anion Gap 8.9, BUN 25 H, Creatinine 1.10 H, Estimated Creat Clear 56, Estimated GFR 49 L, Est GFR ( Amer) 59, Glucose 114 H, Calcium 8.7, Magnesium 1.6, Total Bilirubin 0.8, AST 26, ALT 20, Alkaline Phosphatase 74, Total Protein 6.3, Albumin 3.2 L D, Globulin 3.1, Albumin/Globulin Ratio 1.0 L I & O for Labs
--- NOTE | 2023-05-18 12:07 | CARE MANAGER ---
Patient has a medical condition which requires positioning of the body in ways not feasible with an ordinary bed. DEE Delaney
--- NOTE | 2023-05-18 14:11 | XR_ITS ---
FINAL REPORT CLINICAL HISTORY: abd pain, constipation FINDINGS: A PA view of the chest was obtained. The mediastinum is unremarkable. There is mild bibasilar atelectasis. There is no free air beneath the diaphragm. Upright and supine views of the abdomen reveal postoperative changes in the right upper quadrant. There is a nonspecific bowel gas pattern with scattered fluid levels. IMPRESSION: Nonspecific bowel gas pattern. Mild bibasilar atelectasis. Reviewed, Interpreted and Dictated by Hubert Villasenor III, MD Transcribed by Ruth Gonzalez Authenticated and [facility]
--- NOTE | 2023-05-18 17:12 | EXP.PN ---
Subjective *Date: 05/18/23 *Time: 17:12 Interval history: Patient is seen at bedside, denied chest pain shortness of breath nausea vomiting, dysuria Exam Data for Last 24 hours Vital signs and Labs for Last 24 Hours: Temp Pulse Resp BP Pulse Ox O2 Del Method O2 Flow Rate 98.4 F 77 29 H 110/62 92 L Room Air 1 05/18/23 16:00 05/18/23 16:00 05/18/23 16:00 05/18/23 16:00 05/18/23 16:00 05/18/23 16:00 05/18/23 12:37 FiO2 100 05/18/23 06:00 Laboratory Results - last 24 hr 05/18/23 05:40: WBC 10.9 H, RBC 4.10 L, Hgb 12.9, Hct 38.2, MCV 93.3, MCH 31.5 H, MCHC 33.8, RDW 14.0, Plt Count 275, MPV 8.6, Neut % (Auto) 74.9, Lymph % (Auto) 17.3, [place] % (Auto) 5.7, Eos % (Auto) 1.7, Baso % (Auto) 0.4, Neut # (Auto) 8.2 H, Lymph # (Auto) 1.9, [place] # (Auto) 0.6, Eos # (Auto) 0.2, Baso # (Auto) 0.0, Sodium 139, Potassium 3.9, Chloride 104, Carbon Dioxide 30, Anion Gap 8.9, BUN 25 H, Creatinine 1.10 H, Estimated Creat Clear 56, Estimated GFR 49 L, Est GFR ( Amer) 59, Glucose 114 H, Calcium 8.7, Magnesium 1.6, Total Bilirubin 0.8, AST 26, ALT 20, Alkaline Phosphatase 74, Total Protein 6.3, Albumin 3.2 L D, Globulin 3.1, Albumin/Globulin Ratio 1.0 L I & O for Last 24 hours: Intake & Output 05/15/23 05/16/23 05/17/23 05/18/23 23:59 23:59 23:59 23:59 Intake Total 240 / 240 600 / 600 0 / 0 Output Total 0 / 0 350 / 350 450 / 450 Balance 240 / 240 250 / 250 -450 / -450 Weight 79.832 kg 77.167 kg 75.4 kg 74.8 kg Constitutional Constitutional: no acute distress *Routine HEENT Exam Head: Present normocephalic Eye: Present EOMI and PERRL ENT: Present mucous membranes moist *Routine Neck Exam Neck: Present supple; Absent lymphadenopathy *Routine Cardiovascular Exam Cardiovascular: Present RRR *Routine Abdominal Exam Abdominal: Present soft and normoactive bowel sounds; Absent tenderness *Routine Extremities Exam Extremities: Absent cyanosis, clubbing or edema *Routine Skin Exam Skin: Present warm; Absent rash *Routine Neurological Exam Neurological: Present alert and oriented X3 Detailed Respiratory Exam bilateral: Comments: has R sided chest tube Assessment and Plan *Assessment and plan (1) Fall: Status: Acute Category: Medical Code(s): W19.XXXA - Unspecified fall, initial encounter (2) Pneumothorax on right: Status: Acute Category: Medical Code(s): J93.9 - Pneumothorax, unspecified (3) COPD mixed type: Status: Chronic Category: Medical Code(s): J44.9 - Chronic obstructive pulmonary disease, unspecified (4) Dementia: Status: Chronic Qualifiers: Dementia type: unspecified type Category: Medical Code(s): F03.90 - Unspecified dementia, unspecified severity, without behavioral disturbance, psychotic disturbance, mood disturbance, and anxiety Plan Patient is a 72-year-old female with past medical history of COPD who presented for cardiac pneumothorax on the right side. On my evaluation today patient denied chest pain shortness of breath nausea vomiting diarrhea dysuria. Patient does not have any complaints at this time. Patient mentions she is constipated she did not have bowel movement for about 4 to 5 days. Assessment COPD Right pneumothorax Constipation Dementia Hypertension Hyperlipidemia Hypothyroidism Plan Patient is a status post chest tube removal, wean down oxygen as tolerated. Pulmonary following-appreciate recommendations Continue DuoNebs Ordered Dulcolax suppository, abdominal x-ray for constipation, patient was given an enema with no resolution of constipation, will consider consulting surgery for manual disimpaction Continue DVT prophylaxis Continue Lovenox disposition - Likely dc tomorrow if constipation is resolved, DME bed and bedside commode were ordered per wild life manager
--- NOTE | 2023-05-18 18:56 | PC.NURSE ---
pt pulled out 22G left hand
--- NOTE | 2023-05-18 21:25 | PC.NURSE ---
Bedside shift report: pt found up in chair, comfortable, RUE sling placed. Pt tolerating sling, but pt and family requesting lidocaine patch for nighttime. VSS, no acute needs at this time.
[2023-05-19] VITALS: BP 108/73; PULSE 100; PULSE 94; RESP 22; TEMP 36.8; O2SAT 96
[2023-05-19 04:00] VITALS: BP 123/94; PULSE 100; RESP 22; TEMP 36.8; O2SAT 98; BMI 29.0
--- NOTE | 2023-05-19 05:36 | PC.NURSE ---
Pt slept for most of shift, VSS on RA, PRN pain medications given when needed. RUE sling in place, skin assessed and intact. Son and DIL remained at bedside throughout shift, assisted with repositioning pt in bed and transferring from bed to chair and toilet. No acute needs at this time.
[2023-05-19 06:11] VITALS: PULSE 85
[2023-05-19 06:45] LABS: Chloride 102 mmol/L (98-107)
[2023-05-19 06:46] LABS: Potassium 4.4 mmoL/L (3.5-5.1); Sodium 137 mmol/L (136-145)
[2023-05-19 06:48] LABS: Alanine Aminotransferase 26 U/L (12-78); Alkaline Phosphatase 81 U/L (38-126); Anion Gap 12.4 mEq/L (5-15); Aspartate Amino Transferase 32 U/L (14-36); Bilirubin,Total 0.4 mg/dl (0.2-1.3); Blood Urea Nitrogen 31 mg/dl (7-17); Carbon Dioxide 27 mmol/L (22.0-30.0); Creatinine Clearance Estimated 58 mL/min (50-200); Estimated Glomerular Filt Rate 49 ml/min (>60); GFR (African American) 59 ML/MIN (>60)
[2023-05-19 06:49] LABS: Albumin Level 3.4 g/dl (3.5-5.0); Calcium 8.9 mg/dl (8.4-10.2); Globulin 3.3 g/dL (1.3-3.2); Glucose 127 mg/dl (74-100); Total Protein,Serum 6.7 g/dl (6.3-8.2)
[2023-05-19 07:22] VITALS: BP 109/65; PULSE 99; RESP 20; TEMP 36.7; O2SAT 100
[2023-05-19 08:00] VITALS: PULSE 100
[2023-05-19 08:10] VITALS: PULSE 99; O2SAT 100
--- NOTE | 2023-05-19 09:10 | P.PN_ITS ---
Subjective *Date: 05/19/23 *Time: 10:04 Interval history: No acute respiratory vents overnight. Continued to remain on room air. Pulmonology Exam Inpatient Vital signs and Labs for Last 24 Hours: Temp Pulse Resp BP Pulse Ox O2 Del Method O2 Flow Rate 98.1 F 99 H 20 109/65 L 100 Room Air 1 05/19/23 07:22 05/19/23 08:10 05/19/23 07:22 05/19/23 07:22 05/19/23 08:10 05/19/23 08:10 05/18/23 12:37 FiO2 100 05/18/23 06:00 Laboratory Results - last 24 hr 05/19/23 05:53: Sodium 137, Potassium 4.4, Chloride 102, Carbon Dioxide 27, Anion Gap 12.4, BUN 31 H, Creatinine 1.10 H, Estimated Creat Clear 58, Estimated GFR 49 L, Est GFR ( Amer) 59, Glucose 127 H, Calcium 8.9, Total Bilirubin 0.4, AST 32, ALT 26 D, Alkaline Phosphatase 81, Total Protein 6.7, Albumin 3.4 L, Globulin 3.3 H, Albumin/Globulin Ratio 1.0 L I & O for Labs for Last 24 Hours: Intake & Output 05/16/23 05/17/23 05/18/23 05/19/23 23:59 23:59 23:59 23:59 Intake Total 240 / 240 600 / 600 0 / 0 240 / 240 Output Total 0 / 0 350 / 350 750 / 750 200 / 200 Balance 240 / 240 250 / 250 -750 / -750 40 / 40 Weight 170 lb 2 oz 166 lb 3.657 oz 164 lb 14.492 oz 170 lb 5 oz Constitutional: Present moderate distress Head: Present normocephalic and atraumatic ENT: Present normal exam, normal oropharynx and mucous membranes moist Neck: Present normal inspection and full ROM Respiratory: Present respiratory distress; Absent prolonged expiratory phase, wheezes, crackles, diminished air movement or able to speak in complete sentences Cardiac: Present S1/S2, Tachycardia and radial pulses present GI: Present soft and distention; Absent tenderness or guarding Rectal (female): Present deferred (female): Present deferred Skin: Present intact; Absent cyanosis or jaundice Neuro: Present awake; Absent alert or oriented x 3 Extremities: Present normal inspection; Absent clubbing or cyanosis Psychiatric: Present normal affect and cooperative Assessment and Plan *Assessment and plan (1) Pneumothorax on right: Status: Acute Category: Medical Code(s): J93.9 - Pneumothorax, unspecified (2) COPD mixed type: Status: Chronic Category: Medical Code(s): J44.9 - Chronic obstructive pulmonary disease, unspecified Plan #Right Pneumothorax: # COPD: 72-year-old female history of COPD on Stiolto inhaler presented to hospital status post fall currently have right-sided pneumothorax on initial CT scan upon admission subsequent CT showed worsening pneumothorax status post 7.5 Belgian catheter placed by the ER. Improvement: Chest tube removed 05/18/2023. Did not get her ordered chest x-ray today. Chest x-ray from this morning did not show any pneumothorax. Plan: -Continue DuoNebs every 8 hours schedule upon discharge patient follows in pulmonary clinic. -We will follow the patient in pulmonary clinic in 5 days with repeat chest x- ray PA lateral prior to clinic visit. -Rest of the medical management as per primary team. #For the noted prior pulmonary nodules, I do not see any significant worsening o f the noted nodules however this can be confounded by right lung collapse obscuring the noted nodule. We will follow as an outpatient with repeat CT chest without contrast within 4 to 6 weeks and further determine the need for follow-up duration
--- NOTE | 2023-05-19 09:11 | XR_ITS ---
FINAL REPORT CLINICAL HISTORY: Pneumothorax COMPARISON: 1 day prior FINDINGS: A single portable view of the chest was obtained. The heart size and pulmonary vascularity are within normal limits. The mediastinum is within normal limits. There is persistent bibasilar atelectasis. Right pleural catheter has been removed. There is no definite pneumothorax. There is a small right pleural effusion. The bony thorax is intact. IMPRESSION: No definite pneumothorax. Persistent bibasilar atelectasis and small right pleural effusion. Reviewed, Interpreted and Dictated by Hubert Villasenor III, MD Transcribed by Casandra Crespo Authenticated and [facility]
--- NOTE | 2023-05-19 10:15 | PC.NURSE ---
Courtesy Round Patient is up and in the bathroom with visitor at bedside. Trash emptied and breakfast tray removed from room. Call light within reach
--- NOTE | 2023-05-20 14:55 | CARE MANAGER ---
Spoke with family. Patient is meeting with home health at this time. They received everything they need and deny questions or concerns. DEE Burks
--- NOTE | 2023-06-06 17:19 | EXP.DC.SUM ---
General Admission date:: 05/16/23 Discharge date: 06/06/23 HPI HPI HPI: 72 year old female presented to the ED after falling and hitting head and shoulder on concrete. Denies LOC. PMHX dementia, hypertension, hyperlipidemia, and COPD. The pt was walking her dog prior to the fall. She lives at home with her son and daughter in law. She c/o pain in her right shoulder. The ED workup revealed unremarkable lab work up. CT imaging of her cervical spine, chest, and head revealed possible left mandible fracture, laceration to the mild focal scalp, mild to moderate right sided pneumothorax, right 3rd and 4th rib fractures, right scapular fracture, compression fracture of L1 and 5 mm nodule in the right upper lobe which has increased in size since last CT in November of 2022. The ED physician spoke with son and daughter in law regrading findings. Both are POA. She had chest tube placed today with good reexpansion of the pneumothorax on the right side. Orthopedics consulted in regards to treatment recommendations for right scapular fracture and lumbar spine compression fracture Hospital Course Hospital Course Hospital Course: Patient was seen and evaluated at the bedside on the day of discharge. Patient is stable for discharge. Patient wishes to be discharged. All patient questions were answered and patient was given time to ask questions. Patient was discharged in stable condition. Patient is a 72-year-old female with past medical history of COPD who presented for cardiac pneumothorax on the right side. On my evaluation today patient denied chest pain shortness of breath nausea vomiting diarrhea dysuria. Patient does not have any complaints at this time. Patient mentions she is constipated she did not have bowel movement for about 4 to 5 days. Assessment COPD Right pneumothorax Constipation Dementia Hypertension Hyperlipidemia Hypothyroidism Plan Patient is a status post chest tube removal, wean down oxygen as tolerated. Pulmonary following-appreciate recommendations f/u with pulmonary as OP Exam Data for Last 24 hours Vital signs and Labs for Last 24 Hours: Temp Pulse Resp BP Pulse Ox O2 Del Method O2 Flow Rate 98.1 F 99 H 20 109/65 L 100 Room Air 1 05/19/23 07:22 05/19/23 08:10 05/19/23 07:22 05/19/23 07:22 05/19/23 08:10 05/19/23 11:00 05/18/23 12:37 FiO2 100 05/18/23 06:00 Constitutional Constitutional: no acute distress *Routine HEENT Exam Head: Present normocephalic Eye: Present EOMI and PERRL ENT: Present mucous membranes moist *Routine Neck Exam Neck: Present supple; Absent lymphadenopathy *Routine Cardiovascular Exam Cardiovascular: Present RRR *Routine Abdominal Exam Abdominal: Present soft and normoactive bowel sounds; Absent tenderness *Routine Extremities Exam Extremities: Absent cyanosis, clubbing or edema *Routine Skin Exam Skin: Present warm; Absent rash *Routine Neurological Exam Neurological: Present alert and oriented X3 Detailed Respiratory Exam bilateral: Comments: has R sided chest tube DS: Diagnosis Discharge Diagnosis (1) Pneumothorax on right: Status: Acute Code(s): J93.9 - Pneumothorax, unspecified (2) COPD mixed type: Status: Chronic Code(s): J44.9 - Chronic obstructive pulmonary disease, unspecified Meds Home Medications and Allergies Home Medications Medication Instructions Recorded Confirmed Type citalopram 20 mg tablet 20 mg PO DAILY MOOD 10/21/22 06/03/23 History potassium chloride 20 mEq 20 meq PO BID Supplement 05/15/23 06/03/23 History tablet,extended release(part/cryst) albuterol sulfate 90 mcg/actuation 2 inh inhalation QIDP PRN 05/16/23 06/03/23 History aerosol inhaler Shortness Of Breath Or Wheezing donepezil 10 mg tablet 10 mg PO DAILY MEMORY 05/16/23 06/03/23 History hydrochlorothiazide 12.5 mg tablet 12.5 mg PO DAILY High Blood 05/16/23 06/03/23 History Pressure levothyroxine 88 mcg tablet 88 m
== END 2023-05-19 12:45 | disposition home health service (06) | DRG 200 ==
LOC: ER 05-16 00:09 → 2ND 05-16 00:20
PROVIDERS: Nurse Practitioner Critical Care Medicine; Admitting Provider Internal Medicine Adolescent Medicine; Emergency Provider Emergency Medicine; PCP Nurse Practitioner Family; Visit Provider Internal Medicine Adolescent Medicine
DX: J93.9 Pneumothorax, unspecified (principal); S22.41XA Multiple fractures of ribs, right side, initial encounter for closed fracture; S32.019A Unspecified fracture of first lumbar vertebra, initial encounter for closed fracture; S42.111A Displaced fracture of body of scapula, right shoulder, initial encounter for closed fracture; R91.8 Other nonspecific abnormal finding of lung field; F03.90 Unspecified dementia, unspecified severity, without behavioral disturbance, psychotic disturbance, mood disturbance, and anxiety; I10 Essential (primary) hypertension; E78.5 Hyperlipidemia, unspecified; E03.9 Hypothyroidism, unspecified; S42.101A Fracture of unspecified part of scapula, right shoulder, initial encounter for closed fracture; W10.9XXA Fall (on) (from) unspecified stairs and steps, initial encounter; J44.89 Other specified chronic obstructive pulmonary disease; Z87.891 Personal history of nicotine dependence; J43.9 Emphysema, unspecified
CPT/HCPCS: 32556; 36415; 70450; 71045; 71250; 72125; 73010; 73030; 73060; 74021; 74176; 80048; 80053; 83735; 84443; 85025; 85610; 94640; 97110; 97163; 97530; 99285; J2405

== ENCOUNTER → 2023-05-25 11:07 | Outpatient (CLI) | payer MEDICARE, OTHER, SELFPAY ==
--- NOTE | 2023-05-25 11:11 | XR_ITS ---
FINAL REPORT CLINICAL HISTORY: Pneumonia Pt unable to raise arm FINDINGS: Two views of the chest were obtained. The heart size and pulmonary vascularity are within normal limits. The mediastinum is normal. There are bibasilar opacities. There are small bilateral pleural effusions. There is no pneumothorax. The bony thorax is intact. IMPRESSION: Small bilateral pleural effusions with bibasilar opacities that may represent atelectasis or pneumonia. Reviewed, Interpreted and Dictated by Hubert Villasenor III, MD Transcribed by Momo Parrish Authenticated and . [facility]
== END ==
PROVIDERS: PCP Nurse Practitioner Family; Visit Provider Internal Medicine Pulmonary Disease
DX: J90 Pleural effusion, not elsewhere classified (principal); J93.9 Pneumothorax, unspecified; Z87.891 Personal history of nicotine dependence
CPT/HCPCS: 71046

== ENCOUNTER → 2023-06-03 08:39 | Outpatient (CLI) | payer MEDICARE, OTHER, SELFPAY ==
--- NOTE | 2023-06-03 08:48 | XR_ITS ---
FINAL REPORT TECHNIQUE: Right scapula 4 views CLINICAL HISTORY: Rt scapula fracture COMPARISON: None FINDINGS: RIGHT SCAPULA: Multiple views of the right scapula reveal mild acromioclavicular and glenohumeral degenerative change. There are presumed fracture fragments inferior to the glenohumeral joint, up to 15 mm in size. These represent possible fractures of the scapular body. IMPRESSION: Presumed fracture fragments inferior to the scapular body, that may represent fractures of the scapular body. Would recommend CT for further evaluation as indicated. Reviewed, Interpreted and Dictated by Hubert Villasenor III, MD Transcribed by Kayleigh Stallworth Authenticated and . [facility]
== END ==
LOC: RAD 08:40
PROVIDERS: PCP Nurse Practitioner Family; Visit Provider Orthopaedic Surgery
DX: S42.111A Displaced fracture of body of scapula, right shoulder, initial encounter for closed fracture (principal); Y99.9 Unspecified external cause status
CPT/HCPCS: 73010

== ENCOUNTER → 2023-07-08 09:37 | Outpatient (CLI) | payer MEDICARE, OTHER, SELFPAY ==
--- NOTE | 2023-07-08 09:47 | XR_ITS ---
FINAL REPORT CLINICAL HISTORY: right shoulder fx COMPARISON: 06/03/2023 FINDINGS: RIGHT SHOULDER Three-view demonstrate comminuted fracture of the scapula again noted. There is no significant change in alignment of the fracture fragments. There is mild AC joint degenerative change. The visualized bony structures are well aligned. No soft tissue abnormality is seen. IMPRESSION: Comminuted fracture of the scapula not significantly changed. Reviewed, Interpreted and Dictated by Hubert Villasenor III, MD Transcribed by Casandra Crespo Authenticated and . [facility]
== END ==
LOC: RAD 09:39
PROVIDERS: PCP Nurse Practitioner Family; Visit Provider Orthopaedic Surgery
DX: M25.511 Pain in right shoulder (principal)
CPT/HCPCS: 73030

== ENCOUNTER → 2023-07-22 11:05 | Outpatient (CLI) | payer MEDICARE, OTHER, SELFPAY ==
--- NOTE | 2023-07-22 11:05 | CT_ITS ---
FINAL REPORT TECHNIQUE: Axial images were obtained through the chest without contrast. CLINICAL HISTORY: 6 month follow-up pulmonary nodules COMPARISON: 05/16/2023 CT chest and 10/14/2022 CT low-dose FINDINGS: There are calcified right hilar and subcarinal lymph nodes. The heart size is normal. There is no pericardial or pleural effusion. There are mild changes of centrilobular emphysema. There is a pleural-based nodule along the anterior margin of the left major fissure measuring 6 mm seen on image 20 of series 2 which is stable. There is a stable pleural-based nodule in the periphery of the left hemithorax measuring 4 mm, seen on image 31 of series 2. The previous right pneumothorax has resolved. Limited images of the upper abdomen demonstrate a nodule in the left adrenal gland consistent with adenoma. IMPRESSION: Resolved pneumothorax. Stable pleural-based nodules on the left. Reviewed, Interpreted and Dictated by Reilly Herrera MD Transcribed by Casandra Crespo Authenticated and [facility]
== END ==
LOC: RAD 11:05
PROVIDERS: PCP Nurse Practitioner Family; Visit Provider Internal Medicine Pulmonary Disease
DX: R91.8 Other nonspecific abnormal finding of lung field (principal)
CPT/HCPCS: 71250

== ENCOUNTER → 2023-07-23 13:58 | Outpatient (CLI) | payer MEDICARE, OTHER, SELFPAY ==
--- NOTE | 2023-07-23 14:00 | US_ITS ---
FINAL REPORT CLINICAL HISTORY: hypothyroidism COMPARISON: None FINDINGS: THYROID ULTRASOUND: The right lobe of the thyroid measures 2.7 x 1.4 x 0.6 cm in size, somewhat small. The left lobe of the thyroid measures 2 x 1.1 x 0.6 cm in size, also small. The isthmus measures 2 mm in thickness. No focal masses or nodules are identified. IMPRESSION: Bilaterally small thyroid gland, without evidence of focal masses or nodules. Reviewed, Interpreted and Dictated by Reilly Herrera MD Transcribed by Kayleigh Stallworth Authenticated and [facility]
== END ==
LOC: RAD 14:00
PROVIDERS: PCP Nurse Practitioner Family; Visit Provider Nurse Practitioner
DX: E03.9 Hypothyroidism, unspecified (principal)
CPT/HCPCS: 76536

== ENCOUNTER → 2023-07-29 14:27 | Outpatient (CLI) | payer MEDICARE, OTHER, SELFPAY ==
[2023-07-29 15:41] LABS: Free T4 (Free Thyroxine) 1.21 ng/dl (0.78-2.19)
[2023-07-29 15:57] LABS: Thyroid Stimulating Hormone 3.19 uIU/mL (0.465-4.68)
[2023-07-31 08:37] LABS: Thyroid Peroxidase Antibodies 15 IU/mL (0-34)
[2023-08-04 08:15] LABS: Thyroid Stimulating Immunoglob <0.10 IU/L (0.00-0.55)
== END ==
LOC: LAB 14:28
PROVIDERS: PCP Nurse Practitioner Family; Visit Provider Nurse Practitioner
DX: E03.9 Hypothyroidism, unspecified (principal)
CPT/HCPCS: 36415; 84439; 84443; 84445; 86376

== ENCOUNTER 2023-08-25 11:37 | Outpatient (CLI) | payer MEDICARE, OTHER, SELFPAY ==
[2023-08-25 12:58] LABS: Basophils # 0.1 K/mm3 (0-0.2); Basophils % 0.7 % (0.1-2.0); Eosinophils # 0.4 K/mm3 (0.0-0.4); Eosinophils % 5.9 % (0.1-12.0); Hematocrit 41.1 % (37.0-47.0); Hemoglobin 13.3 g/dL (12.2-16.2); Lymphocytes % 29.2 % (10-50); Mean Corpuscular HGB Conc 32.4 g/dL (31.8-35.4); Mean Corpuscular Hemoglobin 30.3 pg (27.0-31.2); Mean Corpuscular Volume 93.6 fl (81-99); Mean Platelet Volume 7.6 fl (7.4-10.4); Monocytes # 0.3 K/mm3 (0.1-1.0); Monocytes % 3.9 % (1.7-9.3); Neutrophils # 4.2 K/mm3 (1.8-7.8); Neutrophils % 60.3 % (37.0-80.0); Platelet Count 265 K/mm3 (142-424); Red Blood Count 4.39 M/mm3 (4.20-5.40); Red Cell Distribution Width 14.3 % (11.5-17.5)
[2023-08-25 13:22] LABS: Albumin Level 4.1 g/dl (3.5-5.0); Chloride 105 mmol/L (98-107); Potassium 4.7 mmoL/L (3.5-5.1); Sodium 140 mmol/L (136-145)
[2023-08-25 13:24] LABS: Blood Urea Nitrogen 22 mg/dl (7-17); Estimated Glomerular Filt Rate 49 ml/min (>60); GFR (African American) 59 ML/MIN (>60)
[2023-08-25 13:25] LABS: Anion Gap 10.7 mEq/L (5-15); Calcium 9.8 mg/dl (8.4-10.2); Carbon Dioxide 29 mmol/L (22.0-30.0); Glucose 93 mg/dl (74-100); Phosphorous 3.8 mg/dl (2.5-4.5)
[2023-08-25 13:35] LABS: Intact Parathyroid Hormone 76.6 pg/mL (7.5-53.5)
[2023-08-25 13:41] LABS: 25-OH Vitamin D, Total 36.7 ng/mL (30-100)
== END 2023-08-25 23:59 ==
LOC: LAB 11:39
PROVIDERS: PCP Nurse Practitioner Family; Visit Provider Internal Medicine Nephrology
DX: I10 Essential (primary) hypertension (principal); N18.30 Chronic kidney disease, stage 3 unspecified; N18.9 Chronic kidney disease, unspecified; E78.5 Hyperlipidemia, unspecified
CPT/HCPCS: 36415; 80069; 82306; 83970; 85025

== ENCOUNTER 2023-10-02 12:14 | Emergency (ER) | payer MEDICARE, OTHER, SELFPAY ==
--- NOTE | 2023-10-02 12:21 | XR_ITS ---
PROCEDURE INFORMATION: Exam: XR Right Hip Exam date and time: 10/02/2023 12:39 PM Age: 73 years old Clinical indication: Injury or trauma; Fall; Blunt trauma (contusions or hematomas); Bilateral; Pelvic region TECHNIQUE: Imaging protocol: Radiologic exam of the right hip. Views: 2 or 3 views hip with pelvis when performed. COMPARISON: CT ABDOMEN PELVIS WO CON 05/17/2023 6:20 PM FINDINGS: Tubes, catheters and devices: Surgical clips overlie the sacrum Bones/joints: Degenerative changes in both hips. There is no evidence of acute fracture.There is no evidence of malalignment or dislocation. Soft tissues: Unremarkable. IMPRESSION: There is no evidence of acute fracture.There is no evidence of malalignment or dislocation.
--- NOTE | 2023-10-02 12:21 | XR_ITS ---
PROCEDURE INFORMATION: Exam: XR Chest Exam date and time: 10/02/2023 12:53 PM Age: 73 years old Clinical indication: Injury or trauma; Fall; Blunt trauma (contusions or hematomas) TECHNIQUE: Imaging protocol: Radiologic exam of the chest. Views: 2 views. COMPARISON: CT CHEST WO CON 07/22/2023 11:10 AM FINDINGS: Lungs: Hyperexpanded lung bob consistent with COPD . No focal consolidation Pleural spaces: Unremarkable. No pleural effusion. No pneumothorax. Heart/Mediastinum: Unremarkable. No cardiomegaly. Bones/joints: Mild upper thoracic compression fractures of unknown age IMPRESSION: Hyperexpanded lung bob consistent with COPD
--- NOTE | 2023-10-02 12:22 | XR_ITS ---
PROCEDURE INFORMATION: Exam: XR Right Shoulder Exam date and time: 10/02/2023 12:44 PM Age: 73 years old Clinical indication: Injury or trauma; Fall; Blunt trauma (contusions or hematomas); Shoulder; Right TECHNIQUE: Imaging protocol: Radiologic exam of the right shoulder. Views: 2 or more views. COMPARISON: CR XR SHOULDER RT MIN 2V 07/08/2023 9:57 AM FINDINGS: Bones/joints: Degenerative changes in the acromioclavicular joint and glenohumeral joint. There is no evidence of acute fracture.There is no evidence of malalignment or dislocation. Stable fracture of the scapula.. Soft tissues: Normal. IMPRESSION: 1. There is no evidence of acute fracture.There is no evidence of malalignment or dislocation. 2. Stable fracture of the scapula..
--- NOTE | 2023-10-02 12:22 | XR_ITS ---
PROCEDURE INFORMATION: Exam: XR Right Clavicle, Complete Exam date and time: 10/02/2023 12:49 PM Age: 73 years old Clinical indication: Injury or trauma; Fall; Blunt trauma (contusions or hematomas); Arm, upper; Right TECHNIQUE: Imaging protocol: Radiologic exam of the right clavicle. Complete exam. Views: Any number of views. COMPARISON: CR XR SHOULDER RT MIN 2V 10/02/2023 12:44 PM FINDINGS: Bones/joints: Degenerative changes in the acromioclavicular joint and glenohumeral joint. There is no evidence of acute fracture.There is no evidence of malalignment or dislocation. Soft tissues: Normal. IMPRESSION: There is no evidence of acute fracture.There is no evidence of malalignment or dislocation.
[2023-10-02 12:35] VITALS: BP 149/86; PULSE 68; RESP 19; TEMP 36.6; O2SAT 98; BMI 29.2
--- NOTE | 2023-10-02 12:50 | ED_ITS ---
Discharge Plan Disposition Patient Disposition: Home, Self-Care Condition: Good Prescriptions Prescriptions: No Action levothyroxine 88 mcg tablet 88 mcg PO DAILY Qty: 90 3RF citalopram 20 mg tablet 20 mg PO DAILY Stiolto Respimat 2.5-2.5 mcg/actuation mist 2 puff inhalation DAILY 90 Days Qty: 4 3RF fluticasone propionate [Flonase Allergy Relief] 50 mcg/actuation spra y,suspension 1 spray intranasal DAILY 90 Days Qty: 16 3RF Rx Instructions: administer into each nostril levocetirizine [Xyzal] 5 mg tablet 5 mg PO DAILY Qty: 30 3RF azelastine 137 mcg (0.1 %) aerosol,spray 1 spray intranasal BID Qty: 30 3RF Rx Instructions: administer into each nostril potassium chloride 20 mEq tablet,ER particles/crystals 20 meq PO BID hydrochlorothiazide 12.5 mg tablet 12.5 mg PO DAILY donepezil 10 mg tablet 10 mg PO DAILY metoprolol succinate 25 mg tablet extended release 24 hr 25 mg PO DAILY lovastatin 20 mg tablet 20 mg PO HS albuterol sulfate 90 mcg/actuation HFA aerosol inhaler 2 inh INHALATION QIDP PRN (Reason: Shortness Of Breath Or Wheezing) memantine 10 mg tablet 10 mg PO BID Stiolto Respimat 2.5-2.5 mcg/actuation mist 2 puff INHALATION DAILY ipratropium-albuterol 0.5 mg-3 mg(2.5 mg base)/3 mL Solution For Nebulization 3 ml inhalation Q6RT Qty: 30 0RF Referrals Follow up/Referrals: Huan Magaña APRN [Primary Care Provider] - See instructions Clinical Impressions Clinical Impression: Acute shoulder pain Qualifiers: Laterality: right Qualified Code(s): M25.511 - Pain in right shoulder Acute hip pain Qualifiers: Laterality: right Qualified Code(s): M25.551 - Pain in right hip Instructions Patient Instructions: How to Prevent Falls, DI for Shoulder Pain, DI for Hip Pain Discharge ED Provider: Gómez ([facility])Huan [facility] [place] HPI General Stated complaint: [id number], pain in Rt shoulder and hip Mode of Arrival: Ambulatory Source of Information: Patient Limitations: No Limitations Time Seen by Provider: 10/02/23 12:50 Description of Symptoms (Recalled from Triage Doc. by RN): PATIENT C/O PAIN TO RIGHT HIP/LEG AND SHOULDER PAIN AFTER FALLING IN BATHTUB TODAY HEENT Symptoms (Recalled from RN notes): No Resp Symptoms (Recalled from RN notes): No Skin Symptoms (Recalled from RN notes): No MS Symptoms (Recalled from RN notes): Yes Functional Status (Recalled from RN notes): WNL History of Present Illness Provider Complaint: 73 yr old female presents for rt shoulder and hip pain. caregiver states she was showering and left her to let her finish up cleaning private areas and as soon as she waslked out of the room she heard a noise. pt fell hitting the floor. Related Data Home Medications Medication Instructions Recorded Confirmed citalopram 20 mg tablet 20 mg PO DAILY MOOD 10/21/22 08/03/23 potassium chloride 20 mEq 20 meq PO BID Supplement 05/15/23 08/03/23 tablet,extended release(part/cryst) albuterol sulfate 90 mcg/actuation 2 inh inhalation QIDP PRN 05/16/23 08/03/23 aerosol inhaler Shortness Of Breath Or Wheezing donepezil 10 mg tablet 10 mg PO DAILY MEMORY 05/16/23 08/03/23 hydrochlorothiazide 12.5 mg tablet 12.5 mg PO DAILY High Blood 05/16/23 08/03/23 Pressure lovastatin 20 mg tablet 20 mg PO HS Cholesterol 05/16/23 08/03/23 memantine 10 mg tablet 10 mg PO BID MEMORY 05/16/23 08/03/23 metoprolol succinate 25 mg 25 mg PO DAILY High Blood Pressure 05/16/23 08/03/23 tablet,extended release 24 hr tiotropium 2.5 mcg-olodaterol 2.5 2 puff inhalation DAILY Copd 05/16/23 08/03/23 mcg/actuation mist for inhalation (Stiolto Respimat) Previous Rx's Medication Instructions Recorded ipratropium 0.5 mg-albuterol 3 mg 3 ml inhalation Q6RT #30 mL 05/19/23 (2.5 mg base)/3 mL nebulization soln azelastine 137 mcg (0.1 %) nasal 1 spray intranasal BID #30 mL 07/20/23 spray aerosol levocetirizine 5 mg tablet (Xyzal) 5 mg PO DAILY #30 tabs 07/20/23 fluticasone propionate 50 1 spray intranasal DAILY 90 days 07/22/23 mcg/actuation nasal #16 grams spray,suspension (Flonase Allergy Relief) tiotropium 2.5 mcg-olodaterol 2.5 2 puff inhalation DAILY 90 days #4 07/22/23 mcg/actuation mist for inhalation grams (Stiolto Respimat) levothyroxine 88 mcg tablet 88 mcg PO DAILY #90 tabs 08/03/23 Allergies Allergy/AdvReac Type Severity Reaction Status Date / Time codeine [CODEINE] Allergy Severe RAPID Verified 08/03/23 10:39 HEART BEAT,CHEST PAIN Worker's Comp Is this a Worker's Comp case?: No [facility] Disclaimer: The information contained in this section may have been updated after the patient was seen, as this information can be updated by other users. Medical History Allergic rhinitis Callus of foot Carotid artery stenosis Closed fracture of body of right scapula Closed fracture of multiple ribs of right side COPD (chronic obstructive pulmonary disease) COPD mixed type Dementia Depression Dry skin Dyspnea on exertion Exostosis of both feet Fall Family history of coronary artery disease Foot pain HLD (hyperlipidemia) Hyperlipidemia LDL goal <100 Hypertension Hypothyroidism Illness Impacted cerumen of left ear L1 vertebral fracture Multiple lung nodules on CT REBECA on CPAP Osteoarthritis of feet, bilateral Osteoporosis Palpitations Pleural effusion on right Pneumothorax on right Primary osteoarthritis of both feet Pulmonary emphysema 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 Shakiness SOB (shortness of breath) Stopped smoking with greater than 30 pack year history Tobacco use Surgical History (Reviewed 10/02/23 @ 12:52 by Huan Magaña ([facility]), [employer]) History of cholecystectomy History of hysterectomy Family History (Reviewed 10/02/23 @ 12:52 by Huan Magaña ([facility]), [facility]) Hypothyroidism Emphysema of lung Hypertension Asthma Social History (Reviewed 10/02/23 @ 12:52 by Huan Magaña ([facility]), [employer]) Smoking Status: Former smoker tobacco type: cigarettes packs per day: 2 years smoked: 40 smoking status stop date: 12/2021 alcohol intake: never counseling provided: none substance use type: denies use current occupational status: retired Travel in the last 8 weeks: None housing: house number of children: 3 ROS Obtained: Yes All systems reviewed & no additional complaints except as documented Constitutional Constitutional: Reports system reviewed and no additional complaints, except as documented Eyes Eyes: Reports system reviewed and no additional complaints, except as documented ENT Ears, Nose, Mouth, and Throat: Reports system reviewed and no additional complaints, except as documented Cardiovascular Cardiovascular: Reports system reviewed and no additional complaints, except as documented Respiratory Respiratory: Reports system reviewed and no additional complaints, except as documented Musculoskeletal Musculoskeletal: Reports system reviewed and no additional complaints, except as documented, Reports as per HPI, Reports arthralgias, Reports joint stiffness and Reports myalgias Integumentary/Breasts Skin/Breast: Reports system reviewed and no additional complaints, except as documented Neurologic Neurologic: Reports system reviewed and no additional complaints, except as documented Endocrine Endocrine: Reports system reviewed and no additional complaints, except as documented Hematologic/Lymphatic Henatologic/Lymphatic: Reports system reviewed and no additional complaints, except as documented Allergic/Immunologic Allergic/Immunologic: Reports system reviewed and no additional complaints, except as documented Physical Exam General General appearance: alert and in no apparent distress Head Head exam: atraumatic Eye Eye exam: Present normal appearance and PERRL ENT ENT exam: Present normal exam, normal oropharynx, mucous membranes moist and TM's normal bilaterally Respiratory Respiratory exam: Present normal lung sounds bilaterally Cardiovascular Cardiovascular exam: Present regular rate and normal rhythm Abdominal Exam Abdominal exam: Present soft and normal bowel sounds Extremities Exam Extremities exam: Present normal inspection, full ROM and normal capillary refill Back Exam Back exam: Present normal inspection Neurological Exam Neurological exam: Present alert and oriented X3 Skin Skin exam: Present warm and intact Medical Decision Making Medical Records Medical records reviewed: Yes I reviewed the patient's medical records. Red Inquiry Pt receiving controlled substance: No Red was queried for this patient: No Vital Signs: 10/02/23 12:35 Temperature 97.8 F Temperature Source Oral Pulse Rate [Left Brachial] 68 Respiratory Rate 19 Blood Pressure [Left Arm] 149/86 H Blood Pressure Mean [Left Arm] 107 Blood Pressure Source [Left Arm] Automatic Cuff Blood Pressure Position [Left Arm] Sitting 02 Sat by Pulse Oximetry 98 Oxygen Delivery Method Room Air Lab Data Lab results reviewed: Yes I reviewed the patient's lab results. Orders (Tests/Meds): ORDERS Category Date Time Status CXR 2 view (NOT portable) [XR chest 2V] Stat Exams 10/02/23 12:21 Ordered XR clavicle RT Stat Exams 10/02/23 12:22 Ordered XR hip RT 2-3V w/pelvis Stat Exams 10/02/23 12:21 Ordered XR shoulder RT min 2V Stat Exams 10/02/23 12:22 Ordered
[2023-10-02 14:34] VITALS: BP 149/86; PULSE 68; RESP 19; TEMP 36.6; O2SAT 98
== END 2023-10-02 14:41 | disposition home or self-care (01) ==
PROVIDERS: Emergency Provider Nurse Practitioner Family; PCP Nurse Practitioner Family
DX: M25.511 Pain in right shoulder (principal); M25.551 Pain in right hip; J44.9 Chronic obstructive pulmonary disease, unspecified; I65.29 Occlusion and stenosis of unspecified carotid artery; I11.9 Hypertensive heart disease without heart failure; E78.5 Hyperlipidemia, unspecified; E03.9 Hypothyroidism, unspecified; Z87.891 Personal history of nicotine dependence; W18.2XXA Fall in (into) shower or empty bathtub, initial encounter
CPT/HCPCS: 71046; 73000; 73030; 73502; 99212; 99214; G0463

== ENCOUNTER 2024-01-23 12:42 | Emergency (ER) | payer MEDICARE, OTHER, SELFPAY ==
[2024-01-23 12:55] VITALS: BP 155/94; PULSE 79; RESP 18; TEMP 36.9; O2SAT 96; BMI 28.0
--- NOTE | 2024-01-23 13:22 | EXP.UTC ---
Discharge Plan Disposition Patient Disposition: Home, Self-Care Condition: Good Prescriptions Prescriptions: New cefdinir 300 mg capsule 300 mg PO Q12H 10 Days Qty: 20 0RF No Action levothyroxine 88 mcg tablet 88 mcg PO DAILY Qty: 90 3RF citalopram 20 mg tablet 20 mg PO DAILY Stiolto Respimat 2.5-2.5 mcg/actuation mist 2 puff inhalation DAILY 90 Days Qty: 4 3RF fluticasone propionate [Flonase Allergy Relief] 50 mcg/actuation spray,suspension 1 spray intranasal DAILY 90 Days Qty: 16 3RF Rx Instructions: administer into each nostril levocetirizine [Xyzal] 5 mg tablet 5 mg PO DAILY Qty: 30 3RF azelastine 137 mcg (0.1 %) aerosol,spray 1 spray intranasal BID Qty: 30 3RF Rx Instructions: administer into each nostril potassium chloride 20 mEq tablet,ER particles/crystals 20 meq PO BID hydrochlorothiazide 12.5 mg tablet 12.5 mg PO DAILY donepezil 10 mg tablet 10 mg PO DAILY metoprolol succinate 25 mg tablet extended release 24 hr 25 mg PO DAILY lovastatin 20 mg tablet 20 mg PO HS albuterol sulfate 90 mcg/actuation HFA aerosol inhaler 2 inh INHALATION QIDP PRN (Reason: Shortness Of Breath Or Wheezing) memantine 10 mg tablet 10 mg PO BID Stiolto Respimat 2.5-2.5 mcg/actuation mist 2 puff INHALATION DAILY ipratropium-albuterol 0.5 mg-3 mg(2.5 mg base)/3 mL Solution For Nebulization 3 ml inhalation Q6RT Qty: 30 0RF Referrals Follow up/Referrals: Huan Magaañ APRN [Primary Care Provider] - See instructions Activity Restrictions/Add. Instructions Additional Instructions/Restrictions: Start antibiotics today be sure to take it as ordered with the full length of time although you should start feeling better in 24-48 hours. Change toothbrush and toothpaste 24-48 hours after starting antibiotics Tylenol or Motrin as needed for fever or pain Encourage fluids, water, Gatorade, Powerade, try cold fluids, popsicles, ice cream will make it feel better You are contagious for 24 hours. Avoid kissing anyone, no eating or drinking after anyone. You are contagious. Follow-up the ER for new or worsening symptoms or no noticeable improvement over the next 24-48 hours. Follow-up with PCP this week. Clinical Impressions Clinical Impression: Strep sore throat, Acute UTI Instructions Patient Instructions: DI for Strep Throat, DI for Urinary Tract Infection (UTI) Discharge ED Provider: [facility] [facility] [place] General Stated complaint: sore throat Mode of Arrival: Ambulatory Source of Information: Patient Limitations: No Limitations Time Seen by Provider: 01/23/24 13:23 Description of Symptoms (Recalled from Triage Doc. by RN): Pt's symptoms are right side of face hurts, sore throat, and not wanting to swallow . HEENT Symptoms (Recalled from RN notes): Yes Resp Symptoms (Recalled from RN notes): No Skin Symptoms (Recalled from RN notes): No MS Symptoms (Recalled from RN notes): No Functional Status (Recalled from RN notes): n/a History of Present Illness Provider Complaint: 73 yr old female presents for c/o right side of face hurts, sore throat, and not wanting to swallow . Related Data Home Medications Medication Instructions Recorded Confirmed citalopram 20 mg tablet 20 mg PO DAILY MOOD 10/21/22 01/23/24 potassium chloride 20 mEq 20 meq PO BID Supplement 05/15/23 01/23/24 tablet,extended release(part/cryst) albuterol sulfate 90 mcg/actuation 2 inh inhalation QIDP PRN 05/16/23 01/23/24 aerosol inhaler Shortness Of Breath Or Wheezing donepezil 10 mg tablet 10 mg PO DAILY MEMORY 05/16/23 01/23/24 hydrochlorothiazide 12.5 mg tablet 12.5 mg PO DAILY High Blood 05/16/23 01/23/24 Pressure lovastatin 20 mg tablet 20 mg PO HS Cholesterol 05/16/23 01/23/24 memantine 10 mg tablet 10 mg PO BID MEMORY 05/16/23 01/23/24 metoprolol succinate 25 mg 25 mg PO DAILY High Blood Pressure 05/16/23 01/23/24 tablet,extended release 24 hr tiotropium 2.5 mcg-olodaterol 2.5 2 puff inhalation DAILY Copd 05/16/23 01/23/24 mcg/actuation mist for inhalation (Stiolto Respimat) Previous Rx's Medication Instructions Recorded ipratropium 0.5 mg-albuterol 3 mg 3 ml inhalation Q6RT #30 mL 05/19/23 (2.5 mg base)/3 mL nebulization soln azelastine 137 mcg (0.1 %) nasal 1 spray intranasal BID #30 mL 07/20/23 spray aerosol levocetirizine 5 mg tablet (Xyzal) 5 mg PO DAILY #30 tabs 07/20/23 fluticasone propionate 50 1 spray intranasal DAILY 90 days 07/22/23 mcg/actuation nasal #16 grams spray,suspension (Flonase Allergy Relief) tiotropium 2.5 mcg-olodaterol 2.5 2 puff inhalation DAILY 90 days #4 07/22/23 mcg/actuation mist for inhalation grams (Stiolto Respimat) levothyroxine 88 mcg tablet 88 mcg PO DAILY #90 tabs 08/03/23 cefdinir 300 mg capsule 300 mg PO Q12H 10 days #20 caps 01/23/24 Allergies Allergy/AdvReac Type Severity Reaction Status Date / Time codeine [CODEINE] Allergy Severe RAPID Verified 01/23/24 13:04 HEART BEAT,CHEST PAIN Worker's Comp Is this a Worker's Comp case?: No [facility] Disclaimer: The information contained in this section may have been updated after the patient was seen, as this information can be updated by other users. 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 Impacted cerumen of left ear Pleural effusion on right L1 vertebral fracture Closed fracture of multiple ribs of right side Pneumothorax on right Fall Closed fracture of body of right scapula COPD mixed type Allergic rhinitis Depression Dementia Stopped smoking with greater than 30 pack year history Multiple lung nodules on CT Pulmonary emphysema Dyspnea on exertion Exostosis of both feet Osteoarthritis of feet, bilateral Dry skin Primary osteoarthritis of both feet Callus of foot Foot pain Illness Tobacco use Osteoporosis REBECA on CPAP HLD (hyperlipidemia) Shakiness Carotid artery stenosis Palpitations Family history of coronary artery disease SOB (shortness of breath) Hypothyroidism COPD (chronic obstructive pulmonary disease) Hyperlipidemia LDL goal <100 Hypertension Surgical History , [employer]) History of hysterectomy History of cholecystectomy Family History , [employer]) Hypothyroidism Emphysema of lung Hypertension Asthma Social History , [employer]) Smoking Status: Former smoker tobacco type: cigarettes packs per day: 2 years smoked: 40 smoking status stop date: 12/2021 alcohol intake: never counseling provided: none substance use type: denies use current occupational status: retired Travel in the last 8 weeks: None housing: house number of children: 3 ROS Obtained: Yes All systems reviewed & no additional complaints except as documented Constitutional Constitutional: Reports system reviewed and no additional complaints, except as documented Eyes Eyes: Reports system reviewed and no additional complaints, except as documented ENT Ears, Nose, Mouth, and Throat: Reports system reviewed and no additional complaints, except as documented, Reports as per HPI, Reports odynophagia and Reports sore throat Cardiovascular Cardiovascular: Reports system reviewed and no additional complaints, except as documented Respiratory Respiratory: Reports system reviewed and no additional complaints, except as documented Gastrointestinal Gastrointestingal: Reports system reviewed and no additional complaints, except as documented and odynophagia Musculoskeletal Musculoskeletal: Reports system reviewed and no additional complaints, except as documented Integumentary/Breasts Skin/Breast: Reports system reviewed and no additional complaints, except as documented Neurologic Neurologic: Reports system reviewed and no additional complaints, except as documented Endocrine Endocrine: Reports system reviewed and no additional complaints, except as documented Physical Exam General General appearance: alert and in no apparent distress Eye Eye exam: Present normal appearance ENT ENT exam: Present mucous membranes moist Expanded ENT Exam Throat exam: Present tonsillar erythema, tonsillomegaly and tonsillar exudate Respiratory Respiratory exam: Present normal lung sounds bilaterally Cardiovascular Cardiovascular exam: Present regular rate and normal rhythm Neurological Exam Neurological exam: Present alert Skin Skin exam: Present warm and intact Medical Decision Making Medical Records Medical records reviewed: Yes I reviewed the patient's medical records. Red Inquiry Pt receiving controlled substance: No Red was queried for this patient: No Vital Signs: 01/23/24 12:55 Temperature 98.4 F Temperature Source Oral Pulse Rate [Right Radial] 79 Respiratory Rate 18 Blood Pressure [Right Arm] 155/94 H Blood Pressure Mean [Right Arm] 114 Blood Pressure Source [Right Arm] Automatic Cuff Blood Pressure Position [Right Arm] Sitting 02 Sat by Pulse Oximetry 96 Oxygen Delivery Method Room Air Lab Data Lab results reviewed: Yes I reviewed the patient's lab results.
[2024-01-23 13:23] LABS: Color,Urine Amber (Yellow)
[2024-01-23 13:24] LABS: Apearance,Urine Clear (Clear); Glucose,Urine (UA) Negative (Negative); Ketones,Urine Negative (Negative); PH,Urine 5.5 (5.0-8.5); Protein,Urine 1+ (Negative); UTC Strep Screen (Rapid) Positive (Negative)
[2024-01-23 13:25] LABS: Bilirubin,Urine 1+ (Negative); Blood, Urine Trace (Negative); Urobilinogen,Urine 0.2 EU/dl (0.2)
[2024-01-23 13:26] LABS: UTC Leukocyte Esterase,Urine Trace (Negative); UTC Nitrate,Urine Negative (Negative)
[2024-01-23 13:37] VITALS: BP 155/94; PULSE 79; RESP 18; TEMP 36.9; O2SAT 96
--- NOTE | 2024-01-26 08:27 | PC.NURSE ---
Reviewed urine culture pt is currently on cephalosporins which per the sheet is the correct medication. No further action is required.
== END 2024-01-23 13:37 | disposition home or self-care (01) ==
PROVIDERS: Emergency Provider Nurse Practitioner Family; PCP Nurse Practitioner Family
DX: J02.0 Streptococcal pharyngitis (principal); N39.0 Urinary tract infection, site not specified; B96.29 Other Escherichia coli [E. coli] as the cause of diseases classified elsewhere
CPT/HCPCS: 81003; 87086; 87088; 87186; 87880; 99212; 99214; G0463

== ENCOUNTER 2024-07-11 17:13 | Observation (INO) | payer MEDICARE, OTHER, SELFPAY ==
[2024-07-11] VITALS (8 sets, daily range): BP systolic 147–182; BP diastolic 71–89; PULSE 60–68; RESP 16–18; TEMP 36.6–36.8; O2SAT 96–98; BMI 27.6
--- NOTE | 2024-07-11 17:34 | CT_ITS ---
PROCEDURE INFORMATION: Exam: CT Head Without Contrast Exam date and time: 07/11/2024 5:49 PM Age: 73 years old Clinical indication: Altered mental status/memory loss TECHNIQUE: Imaging protocol: Computed tomography of the head without contrast. Radiation optimization: All CT scans at this facility use at least one of these dose optimization techniques: automated exposure control; mA and/or kV adjustment per patient size (includes targeted exams where dose is matched to clinical indication); or iterative reconstruction. COMPARISON: No relevant prior studies available. FINDINGS: Brain: Moderate diffuse cerebral atrophy slightly more accelerated for the patient's age. The visualized basilar cisterns are patent. The cortical/white matter interfaces are preserved throughout the brain. There is no evidence of mass, mass effect or midline shift. There is no evidence of acute hemorrhage within the brain parenchyma or the subarachnoid space. The craniocervical junction is within range of normal. There are patchy moderate areas of diminished density in the periventricular and subcortical white matter bilaterally which are nonspecific, however likely represent chronic small vessel ischemic change. If symptoms persist, correlation with MRI is advised. Cerebral ventricles: The ventricular system demonstrates mild diffuse compensatory enlargement. Paranasal sinuses: The visualized portions of the sinuses are normal. Mastoid air cells: The mastoid sinuses are normal. Orbital cavities: The orbits are normal. Bones: There is no evidence of acute fracture. Moderate degenerative changes involve the right TMJ. Moderate degenerative changes involve the visualized C1-C2 articulation. Soft tissues: No soft tissue swelling is identified. Other findings: Motion artifact does moderately limit the sensitivity of this examination. IMPRESSION: 1. Moderate diffuse cerebral atrophy slightly more accelerated for the patient's age. 2. Mild ventricular prominence consistent with compensatory enlargement. 3. Patchy moderate areas of diminished density in the periventricular and subcortical white matter bilaterally which are nonspecific, however likely represent chronic small vessel ischemic change. If symptoms persist, correlation with MRI is advised.
--- NOTE | 2024-07-11 17:34 | XR_ITS ---
PROCEDURE INFORMATION: Exam: XR Chest Exam date and time: 07/11/2024 5:48 PM Age: 73 years old Clinical indication: Shortness of breath; Additional info: SOA TECHNIQUE: Imaging protocol: Radiologic exam of the chest. Views: 1 view. COMPARISON: CR XR CHEST 2V 10/02/2023 12:53 PM FINDINGS: Lungs: Lung volumes are mildly diminished. There are minimally increased markings in the left lower lobe, unchanged from prior exam. The lungs appear otherwise clear. No new focal areas of consolidation. Pleural spaces: No pleural effusions. Negative for pneumothorax. Heart/Mediastinum: Cardiac silhouette and pulmonary vasculature are within range of normal. Calcified mediastinal and hilar lymph nodes indicate prior granulomatous disease.The aorta demonstrates mild atherosclerotic calcification. Bones/joints: There is no evidence of acute fracture. The thoracic spine demonstrates mild degenerative changes at multiple levels. IMPRESSION: Negative for an acute cardiopulmonary abnormality. Stable chest radiograph. Color
--- NOTE | 2024-07-11 17:44 | ECG_ITS ---
APPROVED REPORT Exam: Resting ECG HR:60 bpm ECG Measurements Heart Rate 60 AXES MO 137 P 65 QRSd 89 QRS 40 QT 457 T 50 QTc 457 Conclusion Sinus rhythm Electronically signed by : SHASTA SORIANO, 07/11/2024 21:19:22
[2024-07-11 17:55] LABS: Basophils # 0.1 K/mm3 (0-0.2); Basophils % 0.9 % (0.1-2.0); Eosinophils # 0.4 K/mm3 (0.0-0.4); Hematocrit 45.3 % (37.0-47.0); Hemoglobin 14.6 g/dL (12.2-16.2); Lymphocytes # 2.6 K/mm3 (0.7-4.5); Lymphocytes % 26.1 % (10-50); Mean Corpuscular HGB Conc 32.3 g/dL (31.8-35.4); Mean Corpuscular Hemoglobin 30.3 pg (27.0-31.2); Mean Corpuscular Volume 93.8 fl (81-99); Monocytes # 0.4 K/mm3 (0.1-1.0); Monocytes % 4.4 % (1.7-9.3); Neutrophils # 6.4 K/mm3 (1.8-7.8); Neutrophils % 64.6 % (37.0-80.0); Platelet Count 325 K/mm3 (142-424); Red Blood Count 4.83 M/mm3 (4.20-5.40); Red Cell Distribution Width 14.4 % (11.5-17.5)
[2024-07-11 17:58] LABS: Magnesium 1.7 mg/dl (1.6-2.3)
--- NOTE | 2024-07-11 18:02 | HMH.EDGENADL ---
Discharge Plan Disposition Patient Disposition: Admitted Condition: Good Clinical Impressions Clinical Impression: Acute UTI, Altered mental status Discharge ED Provider: Anthony Osorio General Adult HPI <DESIRAE Doll - Last Filed: 07/11/24 20:27> General Chief complaint: Recheck/Abnormal Lab/Rx Stated complaint: Poss UTI Time Seen by Provider: 07/11/24 17:20 Mode of Arrival: Ambulatory Source of Information: Patient and Relative Limitations: No Limitations Description of Symptoms (Recalled from ER Triage Doc. 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 Her PCP, Huan sent her here due to thinking the infection was in her blood per family. Family reports this weekend she became mean and combative, which is very out of character for her. pt states it hurts when she urinates but otherwise is a poor historian. 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 pt has a hx of dementia and alzheimers. Pts POA, her daughter in law, states this is her baseline mentation. History of Present Illness HPI narrative: 73-year-old female presents to the emergency department at the request of her primary care provider, concern for confusion and UTI. Primary care provider was concerned about infection in her blood . She has been more confused and agitated since Wednesday. She states that it hurts when she urinates, however she is a poor historian she is GCS of 14 is alert oriented to person and place but disoriented to time, family member ([id number]) is at the bedside and states this is fairly normal for her she has past medical history of dementia, however that the confusion will wax and wane in the agitation is new. Patient denies any fever chills chest pain shortness of breath nausea vomiting constipation diarrhea. Other past medical history consistent with REBECA COPD, hypothyroidism, hypertension. Per [id number] at the bedside patient has also had a productive cough , that she noticed today. Initial triage vitals are grossly unremarkable. No history of substance use. Related Data Home Medications ?Medication ?Instructions ?Recorded ?Confirmed citalopram 20 mg tablet 20 mg PO DAILY MOOD 10/21/22 06/12/24 potassium chloride 20 mEq 20 meq PO BID Supplement 05/15/23 06/12/24 tablet,extended release(part/cryst) albuterol sulfate 90 mcg/actuation 2 inh inhalation QIDP PRN 05/16/23 06/12/24 aerosol inhaler Shortness Of Breath Or Wheezing donepezil 10 mg tablet 10 mg PO DAILY MEMORY 05/16/23 06/12/24 hydrochlorothiazide 12.5 mg tablet 12.5 mg PO DAILY High Blood 05/16/23 06/12/24 Pressure lovastatin 20 mg tablet 20 mg PO HS Cholesterol 05/16/23 06/12/24 metoprolol succinate 25 mg 25 mg PO DAILY High Blood Pressure 05/16/23 06/12/24 tablet,extended release 24 hr levothyroxine 100 mcg tablet 100 mcg PO DAILY 06/12/24 06/12/24 Previous Rx's ?Medication ?Instructions ?Recorded ipratropium 0.5 mg-albuterol 3 mg 3 ml inhalation Q6RT #30 mL 05/19/23 (2.5 mg base)/3 mL nebulization soln levocetirizine 5 mg tablet (Xyzal) 5 mg PO DAILY #30 tabs 07/20/23 fluticasone propionate 50 1 spray intranasal DAILY 90 days 07/22/23 mcg/actuation nasal #16 grams spray,suspension (Flonase Allergy Relief) tiotropium 2.5 mcg-olodaterol 2.5 2 puff inhalation DAILY 90 days #4 07/22/23 mcg/actuation mist for inhalation grams (Stiolto Respimat) brexpiprazole 0.5 mg tablet 0.5 mg PO DAILY Dementia #30 tabs 06/12/24 (Rexulti) memantine 10 mg tablet 10 mg PO BID MEMORY #60 tabs 06/12/24 Allergies Allergy/AdvReac Type Severity Reaction Status Date / Time codeine (CODEINE) Allergy Severe RAPID Verified 07/11/24 17:33 HEART BEAT,CHEST PAIN [facility] <DESIRAE Doll - Last Filed: 07/11/24 20:27> [facility] Disclaimer: The information contained in this section may have been updated after the patient was seen, as this information can be updated by other users. 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 Impacted cerumen of left ear Pleural effusion on right L1 vertebral fracture Closed fracture of multiple ribs of right side Pneumothorax on right Fall Closed fracture of body of right scapula COPD mixed type Allergic rhinitis Depression Stopped smoking with greater than 30 pack year history Multiple lung nodules on CT Pulmonary emphysema Dyspnea on exertion Exostosis of both feet Osteoarthritis of feet, bilateral Dry skin Primary osteoarthritis of both feet Callus of foot Foot pain Illness Tobacco use Osteoporosis REBECA on CPAP HLD (hyperlipidemia) Shakiness Carotid artery stenosis Palpitations Family history of coronary artery disease SOB (shortness of breath) Hypothyroidism COPD (chronic obstructive pulmonary disease) Hyperlipidemia LDL goal <100 Hypertension Surgical History History of cardiac cath History of appendectomy History of hysterectomy History of cholecystectomy Family History Other Asthma Cancer Emphysema of lung Heart attack Hypertension Hypothyroidism Social History (Updated 06/12/24 @ 13:44 by Solange Merrill) Smoking Status: Former smoker tobacco type: cigarettes packs per day: 2 years smoked: 40 smoking status stop date: 12/2021 alcohol intake: never counseling provided: none substance use type: denies use current occupational status: retired Travel in the last 8 weeks: None household members: family housing: house number of children: 3 Other Medical History Have you received the Flu Vaccine for this season: No Have you received the Pneumonia Vaccine: No <DESIRAE Doll - Last Filed: 07/11/24 20:27> ROS Obtained: Yes All systems reviewed & no additional complaints except as documented Physical Exam <DESIRAE Doll - Last Filed: 07/11/24 20:27> General General appearance: alert and in no apparent distress Comment: Pleasantly confused/demented Head Head exam: atraumatic and normocephalic Eye Eye exam: Present PERRL and EOMI ENT ENT exam: Present mucous membranes moist Neck Neck exam: Present normal inspection Chest Chest inspection: Present normal inspection and symmetric chest wall rise Respiratory Respiratory exam: Present normal lung sounds bilaterally; Absent respiratory distress Cardiovascular Cardiovascular exam: Present regular rate and normal rhythm Abdominal Exam Abdominal exam: Present soft; Absent tenderness, guarding, rebound or rigidity Extremities Exam Extremities exam: Present normal inspection Neurological Exam Neurological exam: Present alert and other (Pleasantly confused, GCS of 14, disoriented to time oriented to person and place.) Psychiatric Psychiatric exam: Present normal affect Skin Skin exam: Present warm and dry Medical Decision Making <DESIRAE Doll - Last Filed: 07/11/24 20:27> Medical Records Medical records reviewed: Yes I reviewed the patient's medical records. Screening: Per USPSTF and CDC recommendations, given the prevalence of disease in our region, it is our hospital?s policy to screen for HIV and viral Hepatitis for all patients aged 18 and over and those with ongoing risk factors. Red Inquiry Pt receiving controlled substance: No Red was queried for this patient: No Vital Signs: 07/11/24 17:25 07/11/24 17:30 07/11/24 18:00 Temperature 98 F Temperature Source Oral Pulse Rate 60 67 Pulse Rate [Left] 64 Respiratory Rate 18 Blood Pressure 155/73 H 155/89 H Blood Pressure [Right Arm] 147/71 H Blood Pressure Mean Blood Pressure Mean [Right Arm] 96 Blood Pressure Source Blood Pressure Source [Right Arm] Automatic Cuff Blood Pressure Position Blood Pressure Position [Right Arm] Sitting 02 Sat by Pulse Oximetry 96 96 98 Oxygen Delivery Method Room Air 07/11/24 18:30 07/11/24 19:00 07/11/24 20:44 Temperature 98.3 F Temperature Source Oral Pulse Rate 60 61 60 Pulse Rate [Left] Respiratory Rate 18 Blood Pressure 158/89 H 147/88 H 182/80 H Blood Pressure [Right Arm] Blood Pressure Mean 107 Blood Pressure Mean [Right Arm] Blood Pressure Source Automatic Cuff Blood Pressure Source [Right Arm] Blood Pressure Position Sitting Blood Pressure Position [Right Arm] 02 Sat by Pulse Oximetry 97 98 Oxygen Delivery Method Room Air Lab Data Lab results reviewed: Yes I reviewed the patient's lab results. Lab Results 07/11/24 17:37: WBC 10.0, RBC 4.83, Hgb 14.6, Hct 45.3, MCV 93.8, MCH 30.3, MCHC 32.3, RDW 14.4, Plt Count 325, MPV 8.0, Neut % (Auto) 64.6, Lymph % (Auto) 26.1, [place] % (Auto) 4.4, Eos % (Auto) 4.0, Baso % (Auto) 0.9, Neut # (Auto) 6.4, Lymph # (Auto) 2.6, [place] # (Auto) 0.4, Eos # (Auto) 0.4, Baso # (Auto) 0.1, Sodium 139, Potassium 4.5, Chloride 103, Carbon Dioxide 30, Anion Gap 10.5, BUN 23 H, Creatinine 1.30 H, Estimated Creat Clear 46, Estimated GFR 40 L, Est GFR ( Amer) 49 L, Glucose 95, Calcium 9.9, Magnesium 1.7, Total Bilirubin 1.0, AST 28, ALT 14, Alkaline Phosphatase 87, Total Protein 7.2, Albumin 4.3, Globulin 2.9, Albumin/Globulin Ratio 1.5, HIV 1&2 Antibody Rapid Nonreactive 07/11/24 18:21: Lactate 0.7 07/11/24 19:59: Urine Color Yellow, Urine Appearance Clear, Urine pH 6.0, Ur Specific [place] 1.025, Urine Protein Negative, Urine Glucose (UA) Negative, Urine Ketones Negative, Urine Blood Negative, Urine Nitrate Positive A, Urine Bilirubin Negative, Urine Urobilinogen 0.2, Ur Leukocyte Esterase 1+ A 07/11/24 17:37 07/11/24 17:37 Orders (Tests/Meds): ED MEDICATIONS Generic Name Dose Route Start Last Admin Trade Name Freq PRN Reason Stop Dose Admin Acetaminophen 650 mg 07/11/24 20:49 Acetaminophen 325mg Tab PO 08/10/24 20:48 Q4HP PRN Fever or Mild Pain (1-3) Doxycycline Hyclate 100 mg 07/11/24 20:45 Doxycycline Hycl 100 Mg Tablet PO 07/18/24 20:44 Q12H ABY Ceftriaxone Sodium 1 gm/ 50 mls @ 100 mls/hr 07/11/24 20:19 07/11/24 20:39 Sodium Chloride IV 07/11/24 20:48 Not Given ONCE ONE Ceftriaxone Sodium 1 gm/ 50 mls @ 100 mls/hr 07/11/24 20:38 07/11/24 20:40 Sodium Chloride IV 07/11/24 21:07 100 mls/hr ONCE ONE Administration Ceftriaxone Sodium 2 gm/ 100 mls @ 200 mls/hr 07/11/24 20:45 Sodium Chloride IV 07/18/24 20:44 Q24H ABY Sodium Chloride 1,000 mls @ 100 mls/hr 07/11/24 21:00 Sod Chlor 0.9% 1000ml Bag IV 07/13/24 20:59 .Q10H ABY Sodium Chloride 10 ml 07/11/24 20:46 Sodium Chloride 0.9% 10ml Flush Syringe IV 08/10/24 20:45 NEEDED PRN Maintain IV Site ORDERS Category Date Time Status CT head/brain wo con Stat Cat Scan 07/11/24 17:34 Completed XR chest portable Stat Exams 07/11/24 17:34 Completed CMP [Comprehensive Metabolic Panel] Stat Lab 07/11/24 17:37 Completed Complete Blood Count Auto Diff Stat Lab 07/11/24 17:37 Completed HIV (1&2) Antibody Rapid Stat Lab 07/11/24 17:37 Completed Hep C Ab with Reflex to RNA Stat Lab 07/11/24 17:30 Ordered Lactic Acid Stat Lab 07/11/24 18:21 Completed Magnesium Stat Lab 07/11/24 17:37 Completed UA [Urinalysis and Microscopic] Stat Lab 07/11/24 19:59 Results Blood Culture Stat Micro 07/11/24 18:21 Received Urine Culture Stat Micro 07/11/24 19:59 Received Medical Decision Narrative: 73-year-old female presents emergency department were altered mental status concern for UTI, differential diagnose include but not limited to: Metabolic encephalopathy, delirium, cardiac arrhythmia, electrolyte disturbance, pneumonia, acute UTI, uremic encephalopathy. Will obtain basic laboratory studies blood cultures urinalysis EKG and chest x-ray will CT head without contrast for further evaluation as characterization. I reviewed the patient's EKG, NSR at 60 bpm, IL interval within normals, QT interval is 437/457 there is no STEMI. CBC unremarkable. I reviewed the patient's chest x-ray along the corresponding radiologic report negative for any acute cardiopulmonary abnormality stable chest radiograph. I reviewed the patient's CT head without contrast on the corresponding radiologic report, moderate diffuse cerebral atrophy slightly more elevated for the patient's age, mild ventricular prominence consistent with a Compass Tory enlargement, patchy moderate areas of diminished density in the periventricular and subcortical white matter bilaterally which are nonspecific however likely represent chronic small vessel ischemic change if symptoms persist correlation with MRI is advised. CMP notable for BUN and creatinine elevation at 23/1.3 respectively, Urinalysis notable for nitrite positive, 1+ leukocyte esterase. Will start some IV Rocephin for uremic encephalopathy with nitrite positive UTI. I discussed patient case with the hospitalist on-call at approximately 8:22 PM he is agreement current admission plan acetaminophen for observation for uremic encephalopathy versus altered mental status with nitrite positive UTI. I discussed admission plan with the patient and family at the bedside patient family agree with current admission plan/treatment plan. <Anthony Osorio MD - Last Filed: 07/11/24 21:01> Vital Signs: 07/11/24 17:25 07/11/24 17:30 07/11/24 18:00 Temperature 98 F Temperature Source Oral Pulse Rate 60 67 Pulse Rate [Left] 64 Respiratory Rate 18 Blood Pressure 155/73 H 155/89 H Blood Pressure [Right Arm] 147/71 H Blood Pressure Mean Blood Pressure Mean [Right Arm] 96 Blood Pressure Source Blood Pressure Source [Right Arm] Automatic Cuff Blood Pressure Position Blood Pressure Position [Right Arm] Sitting 02 Sat by Pulse Oximetry 96 96 98 Oxygen Delivery Method Room Air 07/11/24 18:30 07/11/24 19:00 07/11/24 20:44 Temperature 98.3 F Temperature Source Oral Pulse Rate 60 61 60 Pulse Rate [Left] Respiratory Rate 18 Blood Pressure 158/89 H 147/88 H 182/80 H Blood Pressure [Right Arm] Blood Pressure Mean 107 Blood Pressure Mean [Right Arm] Blood Pressure Source Automatic Cuff Blood Pressure Source [Right Arm] Blood Pressure Position Sitting Blood Pressure Position [Right Arm] 02 Sat by Pulse Oximetry 97 98 Oxygen Delivery Method Room Air Lab Data Lab Results 07/11/24 17:37: WBC 10.0, RBC 4.83, Hgb 14.6, Hct 45.3, MCV 93.8, MCH 30.3, MCHC 32.3, RDW 14.4, Plt Count 325, MPV 8.0, Neut % (Auto) 64.6, Lymph % (Auto) 26.1, [place] % (Auto) 4.4, Eos % (Auto) 4.0, Baso % (Auto) 0.9, Neut # (Auto) 6.4, Lymph # (Auto) 2.6, [place] # (Auto) 0.4, Eos # (Auto) 0.4, Baso # (Auto) 0.1, Sodium 139, Potassium 4.5, Chloride 103, Carbon Dioxide 30, Anion Gap 10.5, BUN 23 H, Creatinine 1.30 H, Estimated Creat Clear 46, Estimated GFR 40 L, Est GFR ( Amer) 49 L, Glucose 95, Calcium 9.9, Magnesium 1.7, Total Bilirubin 1.0, AST 28, ALT 14, Alkaline Phosphatase 87, Total Protein 7.2, Albumin 4.3, Globulin 2.9, Albumin/Globulin Ratio 1.5, HIV 1&2 Antibody Rapid Nonreactive 07/11/24 18:21: Lactate 0.7 07/11/24 19:59: Urine Color Yellow, Urine Appearance Clear, Urine pH 6.0, Ur Specific [place] 1.025, Urine Protein Negative, Urine Glucose (UA) Negative, Urine Ketones Negative, Urine Blood Negative, Urine Nitrate Positive A, Urine Bilirubin Negative, Urine Urobilinogen 0.2, Ur Leukocyte Esterase 1+ A Orders (Tests/Meds): ED MEDICATIONS Generic Name Dose Route Start Last Admin Trade Name Freq PRN Reason Stop Dose Admin Acetaminophen 650 mg 07/11/24 20:49 Acetaminophen 325mg Tab PO 08/10/24 20:48 Q4HP PRN Fever or Mild Pain (1-3) Doxycycline Hyclate 100 mg 07/11/24 20:45 Doxycycline Hycl 100 Mg Tablet PO 07/18/24 20:44 Q12H ABY Ceftriaxone Sodium 1 gm/ 50 mls @ 100 mls/hr 07/11/24 20:19 07/11/24 20:39 Sodium Chloride IV 07/11/24 20:48 Not Given ONCE ONE Ceftriaxone Sodium 1 gm/ 50 mls @ 100 mls/hr 07/11/24 20:38 07/11/24 20:40 Sodium Chloride IV 07/11/24 21:07 100 mls/hr ONCE ONE Administration Ceftriaxone Sodium 2 gm/ 100 mls @ 200 mls/hr 07/11/24 20:45 Sodium Chloride IV 07/18/24 20:44 Q24H ABY Sodium Chloride 1,000 mls @ 100 mls/hr 07/11/24 21:00 Sod Chlor 0.9% 1000ml Bag IV 07/13/24 20:59 .Q10H ABY Sodium Chloride 10 ml 07/11/24 20:46 Sodium Chloride 0.9% 10ml Flush Syringe IV 08/10/24 20:45 NEEDED PRN Maintain IV Site ORDERS Category Date Time Status CT head/brain wo con Stat Cat Scan 07/11/24 17:34 Completed XR chest portable Stat Exams 07/11/24 17:34 Completed CMP [Comprehensive Metabolic Panel] Stat Lab 07/11/24 17:37 Completed Complete Blood Count Auto Diff Stat Lab 07/11/24 17:37 Completed HIV (1&2) Antibody Rapid Stat Lab 07/11/24 17:37 Completed Hep C Ab with Reflex to RNA Stat Lab 07/11/24 17:30 Ordered Lactic Acid Stat Lab 07/11/24 18:21 Completed Magnesium Stat Lab 07/11/24 17:37 Completed UA [Urinalysis and Microscopic] Stat Lab 07/11/24 19:59 Results Blood Culture Stat Micro 07/11/24 18:21 Received Urine Culture Stat Micro 07/11/24 19:59 Received Medical Decision Narrative: 73-year-old female presents emergency department were altered mental status concern for UTI, differential diagnose include but not limited to: Metabolic encephalopathy, delirium, cardiac arrhythmia, electrolyte disturbance, pneumonia, acute UTI, uremic encephalopathy. Will obtain basic laboratory studies blood cultures urinalysis EKG and chest x-ray will CT head without contrast for further evaluation as characterization. I reviewed the patient's EKG, NSR at 60 bpm, IL interval within normals, QT interval is 437/457 there is no STEMI. CBC unremarkable. I reviewed the patient's chest x-ray along the corresponding radiologic report negative for any acute cardiopulmonary abnormality stable chest radiograph. I reviewed the patient's CT head without contrast on the corresponding radiologic report, moderate diffuse cerebral atrophy slightly more elevated for the patient's age, mild ventricular prominence consistent with a Compass Tory enlargement, patchy moderate areas of diminished density in the periventricular and subcortical white matter bilaterally which are nonspecific however likely represent chronic small vessel ischemic change if symptoms persist correlation with MRI is advised. CMP notable for BUN and creatinine elevation at 23/1.3 respectively, Urinalysis notable for nitrite positive, 1+ leukocyte esterase. Will start some IV Rocephin for uremic encephalopathy with nitrite positive UTI. I discussed patient case with the hospitalist on-call at approximately 8:22 PM he is agreement current admission plan acetaminophen for observation for uremic encephalopathy versus altered mental status with nitrite positive UTI. I discussed admission plan with the patient and family at the bedside patient family agree with current admission plan/treatment plan. I was consulted by the CURRY, and we discussed the complexity of the problems being addressed. I approved the treatment and management plan for this patient's care in the Emergency Department, thus performing a substantive portion of the medical decision making. Anthony Osorio MD Critical Care <DESIRAE Doll - Last Filed: 07/11/24 20:27> Critical Care Time Critical Care Time: No
[2024-07-11 18:25] LABS: HIV (1&2) Antibody Rapid NONREACTIVE (NONREACTIVE)
[2024-07-11 18:53] LABS: Lactic Acid 0.7 mmol/L (0.7-2.1)
--- NOTE | 2024-07-11 19:28 | PC.NURSE ---
called and spoke with lab about pt chemistry. pt only has lactic and mag at this time.
--- NOTE | 2024-07-11 19:30 | PC.NURSE ---
didnt order chemistry. order placed by this nurse at this time
--- NOTE | 2024-07-11 19:33 | PC.NURSE ---
pt in [facility] with daughter at this time.
[2024-07-11 20:01] LABS: Alanine Aminotransferase 14 U/L (12-78); Albumin Level 4.3 g/dl (3.5-5.0); Albumin/Globulin Ratio 1.5 (1.1-1.8); Alkaline Phosphatase 87 U/L (38-126); Anion Gap 10.5 mEq/L (5-15); Aspartate Amino Transferase 28 U/L (14-36); Blood Urea Nitrogen 23 mg/dl (7-17); Calcium 9.9 mg/dl (8.4-10.2); Carbon Dioxide 30 mmol/L (22.0-30.0); Chloride 103 mmol/L (98-107); Creatinine Clearance Estimated 46 mL/min (50-200); Estimated Glomerular Filt Rate 40 ml/min (>60); GFR (African American) 49 ML/MIN (>60); Globulin 2.9 g/dL (1.3-3.2); Glucose 95 mg/dl (74-100); Potassium 4.5 mmoL/L (3.5-5.1); Sodium 139 mmol/L (136-145); Total Protein,Serum 7.2 g/dl (6.3-8.2)
[2024-07-11 20:02] LABS: Microscopic, Urine URINE MICROSCOPIC (MICROSCOPIC)
[2024-07-11 20:05] LABS: Appearance,Urine CLEAR (Clear); Bilirubin,Urine Negative (Negative); Blood, Urine Negative (Negative); Color,Urine YELLOW (Yellow); Glucose,Urine (UA) Negative (Negative); Ketones,Urine Negative (Negative); Leukocyte Esterase,Urine 1+ (Negative); Nitrate,Urine POSITIVE (Negative); Protein,Urine Negative (Negative); Specific Gravity, Urine 1.025 (1.005-1.030); Urobilinogen,Urine 0.2 EU/dl (0.2)
[2024-07-11] MEDS: CEFTRIAXONE 1 GM 1 GM in 0.9 % SODIUM CHLORIDE 50 ML IV ×2 (20:40→22:57)
--- NOTE | 2024-07-11 20:43 | PC.NURSE ---
called report to angel aranda rn at this time
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
[2024-07-11 21:32] LABS: Procalcitonin 0.055 ng/mL (0.0-2.0)
[2024-07-11 21:45] LABS: Bacteria,Urine 4+ /lpf; WBC,Urine 20-50 #/hpf (0-3)
[2024-07-11] MEDS: 0.9 % SODIUM CHLORIDE 1000ML 1,000 ML 100 ML IV (22:34)
[2024-07-11] MEDS: DOXYCYCLINE HYCL 100 MG TABLET PO (22:34)
[2024-07-11 22:42] LABS: Adenovirus,PCR Not Detected (NotDetected); Bordetella Pertussis Not Detected (NotDetected); Chlamydophila Pneumoniae, PCR Not Detected (NotDetected); Coronavirus 19, PCR Not Detected (NotDetected); Coronavirus 229E Not Detected (NotDetected); Coronavirus NL63 Not Detected (NotDetected); Coronavirus OC43 Not Detected (NotDetected); Coronovirus HKU1,PCR Not Detected (NotDetected); Human Metapneumovirus Not Detected (NotDetected); Influenza A, PCR Not Detected (NotDetected); Influenza AH1, 2009 Not Detected (NotDetected); Influenza AH1, PCR Not Detected (NotDetected); Influenza AH3,PCR Not Detected (NotDetected); Influenza B, PCR Not Detected (NotDetected); Mycoplasma Pneumoniae, PCR Not Detected (NotDetected); Parainfluenza 1, PCR Not Detected (NotDetected); Parainfluenza 2, PCR Not Detected (NotDetected); Parainfluenza 3, PCR Not Detected (NotDetected); Parainfluenza 4, PCR Not Detected (NotDetected); Respiratory Syncytial Virus Not Detected (NotDetected); Rhinovirus/Enterovirus Not Detected (NotDetected)
[2024-07-11] MEDS: IPRATROPIUM/ALBUTEROL 3 ML NEB IH (23:22)
[2024-07-12] VITALS: BP 135/77; PULSE 53; RESP 16; TEMP 36.6; O2SAT 95
[2024-07-12 04:00] VITALS: BP 140/81; PULSE 67; RESP 16; TEMP 36.6; O2SAT 93; BMI 27.6
--- NOTE | 2024-07-12 05:24 | PC.NURSE ---
Patient is alert to self only. Admission questions answered by son and daughter in law. Patient has rested through the night. No complaints from patient. Ambulated to the restroom with 1 assist. Room air. Lung sounds clear. Bed alarm on. Call light in reach.
[2024-07-12 06:25] VITALS: PULSE 82; PULSE 86
[2024-07-12] MEDS: IPRATROPIUM/ALBUTEROL 3 ML NEB IH (06:25)
[2024-07-12 07:27] LABS: Basophils # 0.1 K/mm3 (0-0.2); Basophils % 0.7 % (0.1-2.0); Eosinophils # 0.5 K/mm3 (0.0-0.4); Eosinophils % 4.4 % (0.1-12.0); Hematocrit 41.9 % (37.0-47.0); Hemoglobin 13.9 g/dL (12.2-16.2); Lymphocytes # 2.7 K/mm3 (0.7-4.5); Mean Corpuscular HGB Conc 33.2 g/dL (31.8-35.4); Mean Corpuscular Hemoglobin 30.7 pg (27.0-31.2); Mean Corpuscular Volume 92.7 fl (81-99); Mean Platelet Volume 8.2 fl (7.4-10.4); Monocytes # 0.5 K/mm3 (0.1-1.0); Monocytes % 4.7 % (1.7-9.3); Neutrophils # 7.5 K/mm3 (1.8-7.8); Neutrophils % 66.3 % (37.0-80.0); Platelet Count 284 K/mm3 (142-424); Red Blood Count 4.52 M/mm3 (4.20-5.40); Red Cell Distribution Width 14.3 % (11.5-17.5); White Blood Count 11.3 K/mm3 (4.8-10.8)
[2024-07-12 07:29] LABS: Chloride 109 mmol/L (98-107); Potassium 3.6 mmoL/L (3.5-5.1); Sodium 134 mmol/L (136-145)
[2024-07-12 07:32] LABS: Anion Gap 4.6 mEq/L (5-15); Blood Urea Nitrogen 20 mg/dl (7-17); Carbon Dioxide 24 mmol/L (22.0-30.0); Creatinine Clearance Estimated 60 mL/min (50-200); Estimated Glomerular Filt Rate 55 ml/min (>60); GFR (African American) 66 ML/MIN (>60)
[2024-07-12 07:33] LABS: Calcium 8.8 mg/dl (8.4-10.2); Glucose 94 mg/dl (74-100); Magnesium 1.7 mg/dl (1.6-2.3)
--- NOTE | 2024-07-12 07:44 | HMH.PHAINT1 ---
Pharmacy Intervention Comments: HOME MEDICATIONS VERIFIED VIA OUTPATIENT PHARMACY AND PATIENT INTERVIEW
[2024-07-12 07:57] VITALS: BP 129/61; PULSE 77; RESP 16; TEMP 36.7; O2SAT 92
[2024-07-12] MEDS: LEVOTHYROXINE 100MCG (0.1MG) TAB 100 MCG PO (09:20)
[2024-07-12] MEDS: DOXYCYCLINE HYCL 100 MG TABLET PO (09:20)
[2024-07-12] MEDS: METOPROLOL SUCCINATE XL 25MG TABLET 25 MG PO (09:21)
[2024-07-12] MEDS: CITALOPRAM 20MG TABLET 20 MG PO (09:21)
[2024-07-12] MEDS: LORATADINE 10MG TABLET 10 MG PO (09:21)
[2024-07-12] MEDS: FLUTICASONE PROP 50MCG NASAL SPRAY 16GM 1 SPRAY NS (09:21)
[2024-07-12] MEDS: MEMANTINE 10MG TABLET 10 MG PO (09:21)
[2024-07-12] MEDS: 0.9 % SODIUM CHLORIDE 1000ML 1,000 ML 100 ML IV (09:22)
--- NOTE | 2024-07-12 09:33 | SW/DCPLANNER ---
Addendum entered by Loulou Rombauer 07/12/24 14:43: [facility] is unable to accept. Patient information/order faxed to [facility]. Ana w/ [employer] stated that patient has been accepted for services. Addendum entered by Loulou Rombauer 07/12/24 13:02: Patient information/order has been faxed to [facility]. Original Note: I spoke w/ this patient's son (Gerard/CORTES) regarding plans once medically stable for discharge. Per Gerard patient resides at home w/ him and his . Patient's daughter in law is present 24-7 at home w/ patient. Per Gerard patient did have home health in the past but insurance will no longer cover. Gerard is agreeable for home health services to be set up at time of discharge if insurance will cover expenses. PT/OT evaluated patient this AM and recommended returning home w/ 24-7 care or placement. Gerard prefers patient to return home w/ home health services at time of discharge. I will continue to follow up w/ patient, family and MD until medically stable for discharge. Discharge date is unknown at this time.
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
[2024-07-13 09:10] LABS: HCV Ab Non Reactive (Non Reactive)
--- NOTE | 2024-07-13 10:37 | SW/DCPLANNER ---
Spoke with patients daughter savannah on the phone. Patients daughter savannah stated that everything is the same. Patients david nuñez stated that she made her an upcoming appointment next Wednesday with Huan Magaña. Patients's daughter savannah stated they have no concerns or questions at this time. Heladio Camacho
--- NOTE | 2024-07-14 12:35 | SW/DCPLANNER ---
Patients daughter called and asked to have her mother switched from [facility] to [facility] and i called [employer] and they stated that they no longer have a contract with patients insurance and that she would have a really high deductible. I called patients daughter back and she stated that she will just stay with [facility]. Heladio DRAKE [employer]
== END 2024-07-12 13:57 | disposition home health service (06) ==
LOC: ER 20:26 → 2ND 21:06
PROVIDERS: Internal Medicine; Physician Assistant; Admitting Provider Student in an Organized Health Care Education/Training Program; Emergency Provider Emergency Medicine; PCP Nurse Practitioner Family; Visit Provider Student in an Organized Health Care Education/Training Program
DX: N39.0 Urinary tract infection, site not specified (principal); G30.1 Alzheimer's disease with late onset; F02.B11 Dementia in other diseases classified elsewhere, moderate, with agitation; G47.33 Obstructive sleep apnea (adult) (pediatric); E03.9 Hypothyroidism, unspecified; N17.9 Acute kidney failure, unspecified; Z79.899 Other long term (current) drug therapy; J44.9 Chronic obstructive pulmonary disease, unspecified; E55.9 Vitamin D deficiency, unspecified; Z87.891 Personal history of nicotine dependence; G93.41 Metabolic encephalopathy
CPT/HCPCS: 36415; 70450; 71045; 80048; 80053; 81001; 83605; 83735; 84145; 85025; 86803; 87040; 87086; 87088; 87186; 87389; 87633; 93005; 94640; 97162; 97165; 99285; G0378; J0696; J7030; J7620

== ENCOUNTER 2024-08-16 12:42 | Outpatient (CLI) | payer MEDICARE, OTHER, SELFPAY ==
--- NOTE | 2024-08-16 12:52 | US_ITS ---
FINAL REPORT TECHNIQUE: Limited sonographic images of the thyroid were obtained. CLINICAL HISTORY: hypothyroidism COMPARISON: 07/23/2023 FINDINGS: The thyroid is severely atrophic. Right lobe volume is 1.1 mL. Left lobe volume is 0.7 mL. The parenchyma is mildly heterogeneous. The degree of atrophy is stable since previous. No mass is identified. IMPRESSION: Severely atrophic thyroid, likely due to chronic thyroiditis. No evidence of neoplasm. Reviewed, Interpreted and Dictated by Dawson Walsh MD Transcribed by Ruth Gonzalez Authenticated and [facility]
== END 2024-08-16 23:59 | disposition home or self-care (01) ==
LOC: RAD 12:44
PROVIDERS: PCP Nurse Practitioner Family; Visit Provider Nurse Practitioner
DX: E03.9 Hypothyroidism, unspecified (principal)
CPT/HCPCS: 76536

== ENCOUNTER 2024-08-28 13:00 | Outpatient (CLI) | payer MEDICARE, OTHER, SELFPAY ==
[2024-08-28 15:57] LABS: Microscopic, Urine URINE MICROSCOPIC (MICROSCOPIC)
[2024-08-28 16:38] LABS: Appearance,Urine CLEAR (Clear); Bilirubin,Urine Negative (Negative); Blood, Urine Negative (Negative); Color,Urine YELLOW (Yellow); Glucose,Urine (UA) Negative (Negative); Ketones,Urine Negative (Negative); Leukocyte Esterase,Urine 1+ (Negative); Nitrate,Urine Negative (Negative); Protein,Urine Negative (Negative); Specific Gravity, Urine >= 1.030 (1.005-1.030); Urobilinogen,Urine 0.2 EU/dl (0.2)
[2024-08-28 17:47] LABS: Bacteria,Urine Trace /lpf; RBC,Urine Occasional #/hpf (0-3)
== END 2024-08-28 23:59 | disposition home or self-care (01) ==
LOC: LAB.DROPOF 08-29 09:58
PROVIDERS: PCP Urology; Visit Provider Urology
DX: R32 Unspecified urinary incontinence (principal)
CPT/HCPCS: 81001; 87086

== ENCOUNTER 2024-09-22 08:30 | Day surgery (SDC) | payer MEDICARE, OTHER, SELFPAY ==
[2024-09-20 17:08] VITALS: BMI 27.8
[2024-09-22 08:54] VITALS: BP 135/87; PULSE 74; RESP 17; TEMP 36.6; O2SAT 94
[2024-09-22] MEDS: 0.9 % SODIUM CHLORIDE 500 ML 25 ML IV (09:09)
--- NOTE | 2024-09-22 09:12 | P.PCN_ITS ---
[facility] Procedure Note Date: 09/22/24 Time: 09:12 Procedure Note:: Chart review: The patient is troubled with recurrent urinary tract infections. She really offers no complaints but has some degree of dementia making history taking from her less reliable. The history is taken from the family. Preop diagnosis: Recurrent UTI Postop diagnosis: Recurrent UTI/urethritis Operative note: The patient was brought to the cystoscopy suite. She was prepped and draped in the usual fashion. A catheterized urine sample has been collected for culture and sensitivity. Flexible cystoscopy reveals the patient has particularly on the right posterior lateral side some bladder wid[place] diverticula. There is no evidence of bladder stone tumor hemorrhage or infection otherwise. The ureteral orifice ease are normal bilaterally with clear E flux of urine. The patient has significant urethritis. She tolerated the procedure well.
[2024-09-22 09:15] VITALS: BP 133/88; PULSE 67; RESP 16; O2SAT 94
[2024-09-22 14:06] LABS: Microscopic, Urine URINE MICROSCOPIC (MICROSCOPIC)
[2024-09-22 14:15] LABS: Appearance,Urine CLEAR (Clear); Bilirubin,Urine Negative (Negative); Blood, Urine Negative (Negative); Color,Urine YELLOW (Yellow); Glucose,Urine (UA) Negative (Negative); Ketones,Urine Negative (Negative); Leukocyte Esterase,Urine Negative (Negative); Nitrate,Urine Negative (Negative); PH,Urine 5.5 (5.0-8.5); Protein,Urine Negative (Negative); Specific Gravity, Urine >= 1.030 (1.005-1.030); Urobilinogen,Urine 0.2 EU/dl (0.2)
[2024-09-22 14:42] LABS: Bacteria,Urine Trace /lpf
== END 2024-09-22 09:30 | disposition home or self-care (01) ==
LOC: OUTP 08:31
PROVIDERS: PCP Nurse Practitioner Family; Visit Provider Urology
PROC: 0TJB8ZZ Inspection of Bladder, Via Natural or Artificial Opening Endoscopic (ICD-10-PCS; CPT 52000; principal; 2024-09-22 09:00)
DX: N34.2 Other urethritis (principal); N32.3 Diverticulum of bladder
CPT/HCPCS: 52000; 81001

== ENCOUNTER 2025-01-23 16:18 | Observation (INO) | payer MEDICARE, SELFPAY ==
[2025-01-23] VITALS (9 sets, daily range): BP systolic 101–145; BP diastolic 56–79; PULSE 75–86; RESP 17–18; TEMP 36.9; O2SAT 92–99; BMI 26.4; BMI 26.5
--- NOTE | 2025-01-23 17:23 | ED_ITS ---
<Statement entered by Vance Esqueda MD - 01/23/25 23:34> I was consulted by the CURRY, and we discussed the complexity of the problems being addressed. I approved the treatment and management plan for this patient's care in the emergency department, thus performing a substantive portion of the medical decision making. Vance Esqueda MD Discharge Plan Disposition Patient Disposition: Admitted Condition: Good Clinical Impressions Clinical Impression: Urinary tract infectious disease, Toxic metabolic encephalopathy, Leukocytosis Discharge ED Provider: Vance Esqueda General Adult HPI General Chief complaint: Urogenital-Female Stated complaint: Possible UTI; General Weakness Time Seen by Provider: 01/23/25 17:19 History of Present Illness HPI narrative: Patient presents for evaluation of generalized weakness. Patient has end-stage Alzheimer's. Patient's daughter is her primary caregiver and noted that over the last week patient has had a general functional decline. Most days she is amatory but still requires total care. She is not normally incontinent of her bladder however she is totally incontinent now. Patient was too weak to get out of bed unassisted today. And that is a significant change and could not walk at all. There is no known fever or chills shortness of breath chest pain hemoptysis hematochezia melena nausea vomiting diarrhea. Related Data Home Medications ?Medication ?Instructions ?Recorded ?Confirmed citalopram 20 mg tablet 20 mg PO DAILY 10/21/2201/01 potassium chloride 20 mEq 20 meq PO BID 05/15/2301/23 tablet,extended release(part/cryst) albuterol sulfate 90 mcg/actuation 2 inh inhalation QI DP PRN 05/16/23 01/23/25 aerosol inhaler Shortness Of Breath Or Wheez ing hydrochlorothiazide 12.5 mg tablet 12.5 mg PO DAILY 01/23/25 lovastatin 20 mg tablet 20 mg PO HS 05/16/23 5 metoprolol succinate 25 mg 25 mg PO DAILY 05/16/23 tablet,extended release 24 hr ipratropium 0.5 mg-albuterol 3 mg 3 ml inhalation Q6HP PRN Shortness 07/12/24 01/23/25 (2.5 mg base)/3 mL nebulization Of Breath Or Wheezing soln Previous Rx's ?Medication ?Instructions ?Recorded levocetirizine 5 mg tablet (Xyzal) 5 mg PO DAILY #30 t abs 07/20/23 fluticasone propionate 50 1 spray intranasal DAILY 90 days 07/22/23 mcg/actuation nasal #16 grams spray,suspension (Flonase Allergy Relief) tiotropium 2.5 mcg-olodaterol 2.5 2 puff inhalation DA EMMA 90 days #4 08/03/24 mcg/actuation mist for inhalation grams (Stiolto Respimat) levothyroxine 100 mcg tablet 100 mcg PO DAILY #30 tabs 08/24/24 brexpiprazole 1 mg tablet (Rexulti) 1 mg PO DAILY Alan ntia with 01/16/25 agitation #30 tabs Allergies Allergy/AdvReac Type Severity Reaction Status Date / Time codeine (CODEINE) Allergy Severe RAPID Verified 01/16/25 14:44 HEART BEAT,CHEST PAIN PFSH PFS Disclaimer: The information contained in this section may have been updated after the patient was seen, as this information can be updated by other users. Medical History Bilateral impacted cerumen Strep sore throat Acute hip pain Acute shoulder pain Dementia Severe dementia, requires total care. 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 Impacted cerumen of left ear Pleural effusion on right L1 vertebral fracture Closed fracture of multiple ribs of right side Pneumothorax on right Fall Closed fracture of body of right scapula COPD mixed type Allergic rhinitis Depression Stopped smoking with greater than 30 pack year history Multiple lung nodules on CT Pulmonary emphysema Dyspnea on exertion Exostosis of both feet Osteoarthritis of feet, bilateral Dry skin Primary osteoarthritis of both feet Callus of foot Foot pain Illness Tobacco use Osteoporosis REBECA on CPAP HLD (hyperlipidemia) Shakiness Carotid artery stenosis Palpitations Family history of coronary artery disease SOB (shortness of breath) Hypothyroidism COPD (chronic obstructive pulmonary disease) Hyperlipidemia LDL goal <100 Hypertension Surgical History History of cardiac cath History of appendectomy History of hysterectomy History of cholecystectomy Family History Other Asthma Cancer Emphysema of lung Heart attack Hypertension Hypothyroidism Social History (Updated 01/23/25 @ 21:39 by Morales Koenig RN) Smoking Status: Former smoker tobacco type: cigarettes packs per day: 2 years smoked: 40 smoking status stop date: 12/2021 alcohol intake: never counseling provided: none substance use type: denies use current occupational status: retired Travel in the last 8 weeks?: None household members: family housing: house number of children: 3 Have you lived/traveled outside US in past 30 days?: No Contact w/someone who lives/traveled outside US past 30 days?: No Exposure to someone with infectious disease in past 14 days?: No Do you have a fever (greater than 100.4 F or 38 C)?: No Have you tested positive for COVID-19?: No Exposed to someone with COVID-19 in past 14 days?: No Do you have a sore throat?: No Do you have a cough?: No Do you have any weakness?: No Do you have any diarrhea?: No Are you experiencing any unusual bleeding?: No Do you have any muscle aches/pain?: No Do you have any abdominal pain?: No Are you experiencing loss of taste or smell?: No Other Medical History Have you received the Flu Vaccine for this season: No Have you received the Pneumonia Vaccine: Yes ROS Obtained: Yes Systems reviewed as appropriate & no additional complaints except as documented Physical Exam General General appearance: alert Respiratory Respiratory exam: Present normal lung sounds bilaterally Cardiovascular Cardiovascular exam: Present regular rate Neurological Exam Neurological exam: Present alert and oriented X3 Medical Decision Making Medical Records Medical records reviewed: Yes I reviewed the patient's medical records. Screening: Per USPSTF and CDC recommendations, given the prevalence of disease in our region, it is our hospital?s policy to screen for HIV and viral Hepatitis for all patients aged 18 and over and those with ongoing risk factors. Red Inquiry Pt receiving controlled substance: No Vital Signs: 01/23/25 17:25 01/23/25 18:00 01/23/25 18:30 Temperature 98.4 F Temperature Source Tympanic Pulse Rate 79 80 Pulse Rate [Right] 86 Respiratory Rate 18 Blood Pressure 131/79 128/74 Blood Pressure [Right Arm] 132/67 Blood Pressure Mean 84 93 Blood Pressure Mean [Right Arm] 88 Blood Pressure Source Blood Pressure Position 02 Sat by Pulse Oximetry 94 L 94 L 93 L Oxygen Delivery Method Room Air 01/23/25 19:01 01/23/25 19:31 01/23/25 20:01 Temperature Temperature Source Pulse Rate 84 79 80 Pulse Rate [Right] Respiratory Rate Blood Pressure 145/64 H 107/56 L 107/56 L Blood Pressure [Right Arm] Blood Pressure Mean Blood Pressure Mean [Right Arm] Blood Pressure Source Blood Pressure Position 02 Sat by Pulse Oximetry 96 93 L 96 Oxygen Delivery Method 01/23/25 20:03 01/23/25 20:20 01/23/25 20:59 Temperature 98.4 F Temperature Source Oral Pulse Rate 76 75 Pulse Rate [Right] Respiratory Rate 18 Blood Pressure 121/58 L 101/72 L Blood Pressure [Right Arm] Blood Pressure Mean Blood Pressure Mean [Right Arm] Blood Pressure Source Automatic Cuff Blood Pressure Position Sitting 02 Sat by Pulse Oximetry 99 Oxygen Delivery Method Room Air Room Air Lab Data Lab results reviewed: Yes I reviewed the patient's lab results. Lab Results 01/23/25 18:12: WBC 14.7 H, RBC 4.30, Hgb 13.0, Hct 38.4, MCV 89.3, MCH 30.2, MCHC 33.9, RDW 12.8, Plt Count 555 H, MPV 9.9, Neut % (Auto) 85.2 H, Lymph % (Auto) 8.1 L, [place] % (Auto) 6.0, Eos % (Auto) 0.1, Baso % (Auto) 0.2, Neut # (Auto) 12.5 H, Lymph # (Auto) 1.2, [place] # (Auto) 0.9, Eos # (Auto) 0.0, Baso # (Auto) 0.0, Sodium 135 L, Potassium 4.0, Chloride 94 L, Carbon Dioxide 29, Anion Gap 16.0 H, BUN 17, Creatinine 0.90, Estimated Creat Clear 56, Estimated GFR 62, Est GFR ( Amer) 74, Glucose 141 H, Lactate 0.9, Calcium 9.6, Total Bilirubin 0.9, AST 34, ALT 25, Alkaline Phosphatase 110, Total Protein 8.1, Albumin 3.8, Globulin 4.3 H, Albumin/Globulin Ratio 0.9 L, Procalcitonin 0.093 01/23/25 18:59: Urine Color Yellow, Urine Appearance Clear, Urine pH 6.0, Ur Specific [place] 1.025, Urine Protein Trace, Urine Glucose (UA) Negative, Urine Ketones 1+, Urine Blood Negative, Urine Nitrate Negative, Urine Bilirubin 2+ A, Urine Urobilinogen 1.0, Ur Leukocyte Esterase Negative, Urine WBC 3-5, Ur Squamous Epith Cells Occasional, Urine Bacteria 2+ 01/23/25 18:12 01/23/25 18:12 Orders (Tests/Meds): ED MEDICATIONS Generic Name Dose Route Start Last Admin Trade Name Toneyq PRN Reason Stop Dose Admin Acetaminophen 650 mg 01/23/25 21:31 Acetaminophen 325mg Tab PO 02/22/25 21:30 Q4HP PRN Fever or Mild Pain (1-3) Albuterol/Ipratropium 3 ml 01/23/25 21:29 Ipratropium/Albuterol 3 Ml Neb IH 02/22/25 21:28 Q6HP PRN Shortness Of Breath Citalopram Hydrobromide 20 mg 01/24/25 09:00 Citalopram 20mg Tablet PO 02/23/25 08:59 DAILY ABY Ceftriaxone Sodium 1 gm/ 50 mls @ 100 mls/hr 01/23/25 20:00 01/23/25 20:04 Sodium Chloride IV 02/02/25 19:59 100 mls/hr Q24H ABY Administration Ceftriaxone Sodium 2 gm/ 100 mls @ 200 mls/hr 01/24/25 21:30 Sodium Chloride IV 02/03/25 21:29 Q24H ABY Sodium Chloride 1,000 mls @ 50 mls/hr 01/23/25 21:45 01/23/25 21:46 Sod Chlor 0.9% 1000ml Bag IV 02/22/25 21:44 50 mls/hr .Q20H ABY Administration Levothyroxine Sodium 100 mcg 01/24/25 07:00 Levothyroxine 100mcg (0.1mg) Tab PO 02/23/25 06:59 DAILYDM ABY Sodium Chloride 10 ml 01/23/25 21:31 Sodium Chloride 0.9% 10ml Flush Syringe IV 02/22/25 21:30 NEEDED PRN Maintain IV Site Discontinued Medications Generic Name Dose Route Start Last Admin Trade Name Freq PRN Reason Stop Dose Admin Sodium Chloride 1,640 mls @ 820 mls/hr 01/23/25 18:51 01/23/25 19:30 Sod Chlor 0.9% 1000ml Bag 30 ml/kg infuse over 2 hr (1640 ml) 01/23/25 20:50 820 mls/hr IV Administration .Q2H ONE Ketorolac Tromethamine 15 mg 01/23/25 17:56 01/23/25 18:07 Ketorolac 30mg/Ml Vial IV 01/23/25 17:57 15 mg ONCE ONE Administration ORDERS Category Date Time Status CBC w/Auto Diff [Complete Blood Count Auto Diff] Stat Lab 01/23/25 18:12 Completed CMP [Comprehensive Metabolic Panel] Stat Lab 01/23/25 18:12 Completed Lactic Acid Stat Lab 01/23/25 18:12 Completed Procalcitonin Stat Lab 01/23/25 18:12 Completed UA [Urinalysis and Microscopic] Stat Lab 01/23/25 18:59 Completed Blood Culture Stat Micro 01/23/25 18:19 Received Urine Culture Stat Micro 01/23/25 18:59 Received Medical Decision Narrative: In summary patient is a 74-year-old female who presents to the emergency department for evaluation of asthenia and functional decline. Patient is hemodynamically stable upon arrival, afebrile. Physical exam is remarkable for a well-nourished well-developed 74-year-old female who is currently in no acute distress. Breath sounds clear and equal bilateral to the bases with adventitious sounds cardiovascular's S1-S2 regular rate and rhythm without murmurs thrills. Abdomen soft nontender no rebound or guarding or rigidity. Bowel sounds normal active. Patient is somnolent but arousable. Patient moves all 4 extremities cranial nerves II through XII intact distally to exam with no focal neurologic deficits. She is pleasantly confused. Differential diagnosis includes dehydration versus electrolyte abnormality versus infection. Initial workup will be conducted with hematologic labs and urinalysis.. Initial interventions include crystalloid bolus for now. Initial workup reviewed by me and patient's white count is 14.7 hemoglobin hematocrit 13 and 38.4 respectively with a platelet count of 555 and absolute neutrophil count of 12.5 sodium 135 chloride of 94 and anion gap of 16 glucose of 141 procalcitonin of 0.093 and urinalysis shows trace protein 1 of ketones negative blood nitrate 2+ bilirubin negative for leukocyte Estrace microscopic exam shows 3-5 white cells occasional epithelial cells and 2+ bacteria. I ordered blood cultures and gave the patient an initial dose of Rocephin. Given patient's urinary tract infection and leukocytosis indicative of infection the patient does not meet sepsis criteria she is afebrile and not tachycardic but has had a functional decline I had interactive discussion with hospital medicine regarding patient presentation BUITRAGO and management and she will be admitted for further evaluation and care. Critical Care Critical Care Time Critical Care Time: Yes Attestation: On 01/23/25, the high probability of a clinically significant, sudden or life threatening deterioration of the following system(s) required my full and direct attention, intervention and personal management. The time I documented below is in addition to time spent performing reported procedures but includes the following listed in this critical care notation. Total Time Total Critical Care Time: 35
--- OUTSIDE RECORDS SUMMARY | 2025-01-23 17:31 | XMS_ITS | Clinical Summary ---
Author Organization Healthcare Address [address] [place] [address] Care Team Providers Care Hide Paster Name Role Phone Huan Magaña [id number] Primary Care Provider [phone] Allergies Active Allergy Reactions Criticality Noted Date Comments Codeine Palpitations Low 09/22/2021 Medications budesonide-formote rol (Symbicort) 80-4.5 MCG/ACT inhaler 9 Active potassium chloride CR (Klor-Con M20) 20 MEQ ER tablet 2 Active Vitamin D3 1.25 MG (00715 UT) capsule 2 Active memantine (Namenda) 10 MG tablet 2 Active lisinopril 20 MG tablet 2 Active lovastatin (Mevacor) 20 MG tablet 2 Active levothyroxine (Synthroid, Levoxyl) 75 MCG tablet 2 Active metoprolol succinate XL (Toprol-XL) 25 MG 24 hr tablet 2 Active albuterol 108 (90 Base) MCG/ACT inhaler 2 Active Anoro Ellipta 62.5-25 MCG/ACT aerosol powder 3 Active Stiolto Respimat 2.5-2.5 MCG/ACT aerosol solution inhaler 3 Active levothyroxine (Synthroid, Levoxyl) 100 MCG tablet 3 Active ipratropium-albute rol (Duo-Neb) 0.5-2.5 mg/3 mL nebulizer solution 3 Active hydroCHLOROthiazid e (HYDRODiuril) 12.5 MG tablet 3 Active fluticasone (Flonase) 50 MCG/ACT nasal spray 3 Active citalopram (CeleXA) 20 MG tablet 3 Active Vitamin D-Vitamin K (Decara K) 1250-200 MCG capsule Take 1 capsule every week by oral route. Active ergocalciferol (Vitamin D-2) 1.25 MG (17676 UT) capsule 1 capsule per month Active traZODone (Desyrel) 150 MG tablet Inhale 1 puff every day by inhalation route for 30 days. Active Exelon 4.6 MG/24HRIndications :Major neurocognitive disorder (CMS/HCC) Place 1 patch on the skin 1 (one) time each day over 24 hours. 30 patch 11 3 Active Hospital, Clinic, or Other Facility Administered Medication Ordered Dose Route Frequency Start Date End Date Status collagenase clostrid histolyticum (Xiaflex) 0.9 MG injection 0.6 mgIndications:Dupuytre n contracture 0.6 mg INTRA-LESION Once 01/23/2022 Active Family History Medical History Relation Name Comments Cardiac disorder Father Other cancer Mother Relation Name Status Comments Father Mother Social History Tobacco Use Types Packs/Day Years Used Date Smoking Tobacco: Former Cigarettes Smokeless Tobacco: Never Tobacco Cessation:Counseling Given: Not Answered PHQ-2 Answer Date Recorded Patient Health Questionnaire-2 Score 0 02/03/2023 PHQ-2A Answer Date Recorded Patient Health Questionnaire-2 Score 0 02/03/2023 Comments Unknown Sex and Gender Information Value Date Recorded Sex Assigned at Not on file Legal Sex Female 7:36 PM EDT Gender Identity Not on file Sexual Orientation Not on file Last Filed Vital Signs Vital Sign Reading Time Taken Comments Blood Pressure 163/84 02/03/2023 1:33 PM EDT injury to left wrist-going to urgent care after appt. Pulse 88 02/03/2023 1:33 PM EDT Temperature 36.9 C (98.5 F) 01/23/2022 1:35 PM EDT Respiratory Rate - - Oxygen Saturation 93% 02/03/2023 1:3 3 PM EDT Inhaled Oxygen Concentration - - Weight 76.2 kg (168 lb) 02/03/2023 1:33 PM EDT Height 162.6 cm (5' 4 ) 02/03/2023 1:33 PM EDT Body Mass Index 28.84 02/03/2023 1:33 PM EDT Plan of Treatment Health Maintenance Due Date Last Done Comments [facility]-Bone Density Scan 1950 [facility]-Hepatitis C Screening 1950 [facility]-Medicare Annual Wellness (AWV) 1950 [facility]-/Child/Adol SDOH Screenings 1952 [facility]- SDOH Screenings 1970 [facility]-Adult SDOH Screenings 1970 CT Colonography 1997 Colonoscopy 1997 FIT-DNA 1997 FIT 1997 FOBT 1997 Sigmoidoscopy 1997 [facility]-Colorectal Cancer Screening 1997 [facility]-Breast Cancer Screening 2002 [facility]-Zoster Vaccines (1 of 2) 2002 [facility]-RSV Vaccine: 60+ Years o r (1 - Risk 60-74 years 1-dose series) 2012 [facility]-Pneumococcal Vaccine: 50 + Years (2 of 2 - PCV) 06/05/2021 06/05/2020, 08/17/2014 [facility]-DTaP,Tdap,and Td Vaccine s (2 - Td or Tdap) 08/24/2022 08/24/2012 [facility]-Depression Screening 02/04/2024 02/03/2023 [id number] Vaccine (2023- season) 2024 07/28/2021, 12/06/2020, 11/05/2020 [facility]-Influenza Vaccine ([place] Ended) 2025 05/04/2022, 06/05/2020, 05/09/2014 [facility]-Obesity Intervention Completed 02/03/2023 HPV Vaccines Aged Out No longer eligi ble based on patient's age to complete this topic [facility]-HIB Vaccines Aged Out No longer e ligible based on patient's age to complete this topic [facility]-Hepatitis A Vaccines Aged Out No longer eligible based on patient's age to complete this topic [facility]-IPV Vaccines Aged Out No longer e ligible based on patient's age to complete this topic [facility]-Rotavirus Vaccines Aged Out No lo nger eligible based on patient's age to complete this topic Insurance [employer] Advance Directives Documents on File Type Date Recorded Patient [employer] anation Power of Customs Guard 06/16/2023 Power of A ttorney Care Teams Hide Paster Relationship Specialty Start Date End Date Huan Magaña APRN [address] [place] [address] PCP - General 12/13/20
--- NOTE | 2025-01-23 18:02 | PC.NURSE ---
PT placed on Pure wick by Loulou SRNA
[2025-01-23] MEDS: KETOROLAC 30MG/ML VIAL 15 MG IV (18:07)
[2025-01-23 18:23] LABS: Basophils % 0.2 % (0.1-2.0); Eosinophils % 0.1 % (0.1-12.0); Hematocrit 38.4 % (37.0-47.0); Immature Granulocytes # 0.06 10^3uL; Immature Granulocytes % 0.4 %; Lymphocytes # 1.2 K/mm3 (0.7-4.5); Lymphocytes % 8.1 % (10-50); Mean Corpuscular HGB Conc 33.9 g/dL (31.8-35.4); Mean Corpuscular Hemoglobin 30.2 pg (27.0-31.2); Mean Corpuscular Volume 89.3 fl (81-99); Mean Platelet Volume 9.9 fl (7.4-10.4); Monocytes # 0.9 K/mm3 (0.1-1.0); Neutrophils # 12.5 K/mm3 (1.8-7.8); Neutrophils % 85.2 % (37.0-80.0); Nucleated Red Blood Cells # 0 10^3/uL; Nucleated Red Blood Cells % 0 %; Platelet Count 555 K/mm3 (142-424); Red Cell Distribution Width 12.8 % (11.5-17.5); Red Cell Distribution Width-SD 41.8 fL; White Blood Count 14.7 K/mm3 (4.8-10.8)
[2025-01-23 18:31] LABS: Albumin Level 3.8 g/dl (3.5-5.0); Chloride 94 mmol/L (98-107); Sodium 135 mmol/L (136-145)
[2025-01-23 18:33] LABS: Blood Urea Nitrogen 17 mg/dl (7-17); Creatinine Clearance Estimated 56 mL/min (50-200); Estimated Glomerular Filt Rate 62 ml/min (>60); GFR (African American) 74 ML/MIN (>60)
[2025-01-23 18:34] LABS: Alanine Aminotransferase 25 U/L (12-78); Albumin/Globulin Ratio 0.9 (1.1-1.8); Alkaline Phosphatase 110 U/L (38-126); Aspartate Amino Transferase 34 U/L (14-36); Bilirubin,Total 0.9 mg/dl (0.2-1.3); Calcium 9.6 mg/dl (8.4-10.2); Carbon Dioxide 29 mmol/L (22.0-30.0); Globulin 4.3 g/dL (1.3-3.2); Glucose 141 mg/dl (74-100); Total Protein,Serum 8.1 g/dl (6.3-8.2)
[2025-01-23 18:38] LABS: Lactic Acid 0.9 mmol/L (0.7-2.1)
--- NOTE | 2025-01-23 19:05 | PC.NURSE ---
Intermittent cath tolerated well.
[2025-01-23 19:09] LABS: Microscopic, Urine URINE MICROSCOPIC (MICROSCOPIC)
[2025-01-23 19:16] LABS: Appearance,Urine CLEAR (Clear); Blood, Urine Negative (Negative); Color,Urine YELLOW (Yellow); Glucose,Urine (UA) Negative (Negative); Ketones,Urine 1+ (Negative); Leukocyte Esterase,Urine Negative (Negative); Nitrate,Urine Negative (Negative); Protein,Urine TRACE (Negative); Specific Gravity, Urine 1.025 (1.005-1.030)
[2025-01-23 19:22] LABS: Procalcitonin 0.093 ng/mL (0.0-2.0)
[2025-01-23] MEDS: 0.9 % SODIUM CHLORIDE 1000ML 1,640 ML 820 ML IV (19:30)
--- NOTE | 2025-01-23 19:40 | PC.NURSE ---
rounded on pt. family at bedside. no needs voiced at this time
[2025-01-23 19:54] LABS: Bilirubin,Urine 2+ (Negative)
[2025-01-23 19:55] LABS: Bacteria,Urine 2+ /lpf; Squamous Epithelial Cell,Urine Occasional #/hpf (0-5)
[2025-01-23] MEDS: CEFTRIAXONE 1 GM 1 GM in 0.9 % SODIUM CHLORIDE 50 ML IV (20:04)
--- NOTE | 2025-01-23 20:30 | PC.NURSE ---
Report called to Demi Koenig RN
--- NOTE | 2025-01-23 20:57 | PC.NURSE ---
Patient arrived to floor via stretcher from ED at 20:55.
--- NOTE | 2025-01-23 21:32 | PC.NURSE ---
family helped confirm med list - they will bring in medications in rx bottle tomorrow for pharm to label. donnell, daughter in law states patient has had trouble eating/swallowing since decline and they have been doing purees at home - patient was gave a chicken salad sandwich tonight and was able to eat with no difficulty at this time, family would like a speech eval. family also reports weakness and difficulty with transfers since decline, pt/ot ordered. patient is alert to self and knows she is in the hospital, but otherwise pleasantly confused. purewick in place to monitor UOP, incont otherwise. patient takes inhalers at home, as confirmed on med list, but donnell states she has difficulty inhaling them properly due to dementia - spacer pulled from [facility] and placed in patient bin with label and son, mendy and donnell educated on how to use this device at home for the patient benefit. no other concerns voiced at this time - patient has a bed alarm on, with call dunne in reach and watching tv.
[2025-01-23] MEDS: 0.9 % SODIUM CHLORIDE 1000ML 1,000 ML 50 ML IV (21:46)
--- NOTE | 2025-01-23 22:17 | PC.NURSE ---
knee high scd's placed on patient and education provided.
--- NOTE | 2025-01-24 00:23 | P.HP_ITS ---
<Statement entered by Jairo Myers MD - 01/24/25 17:19> Rounded on patient after nurse practitioner. Personally examined and interviewed patient. Agree with exam findings and care plan as documented. History of Present Illness *Admission Date: 01/23/25 *Reason for visit:: Encephalopathy *History of present illness: This is a 74-year-old female with past medical history of dementia, hypothyroidism, COPD, hyper per lipidemia who presents emergency department [place] with worsening functional decline and confusion. Daughter at bedside reports that over the last several days she has had worsening functional decline. Has now become total care and family is unable to manage her care at home. Daughter states she is normally continent of bowel and bladder but has become completely incontinent now. She usually is able to assist with movements at home but was unable to get out of bed unassisted today. No noted mention of fever or chills. No nausea vomiting. Emergency department workup notable for acute cystitis with 3-5 white cells and +2 bacteria. White blood cell count of 14. Daughter is requested patient to be admitted to the hospital given there having difficulty taking care of her at home. They have also asked to speak to case management/social work in the morning in regards to hospice. She is admitted to the hospital service at this time [facility] Disclaimer: The information contained in this section may have been updated after the patient was seen, as this information can be updated by other users. Medical History Bilateral impacted cerumen Strep sore throat Acute hip pain Acute shoulder pain Dementia Severe dementia, requires total care. 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 Impacted cerumen of left ear Pleural effusion on right L1 vertebral fracture Closed fracture of multiple ribs of right side Pneumothorax on right Fall Closed fracture of body of right scapula COPD mixed type Allergic rhinitis Depression Stopped smoking with greater than 30 pack year history Multiple lung nodules on CT Pulmonary emphysema Dyspnea on exertion Exostosis of both feet Osteoarthritis of feet, bilateral Dry skin Primary osteoarthritis of both feet Callus of foot Foot pain Illness Tobacco use Osteoporosis REBECA on CPAP HLD (hyperlipidemia) Shakiness Carotid artery stenosis Palpitations Family history of coronary artery disease SOB (shortness of breath) Hypothyroidism COPD (chronic obstructive pulmonary disease) Hyperlipidemia LDL goal <100 Hypertension Surgical History History of cardiac cath History of appendectomy History of hysterectomy History of cholecystectomy Family History Other Asthma Cancer Emphysema of lung Heart attack Hypertension Hypothyroidism Social History (Updated 01/23/25 @ 21:39 by Morales Koenig RN) Smoking Status: Former smoker tobacco type: cigarettes packs per day: 2 years smoked: 40 smoking status stop date: 12/2021 alcohol intake: never counseling provided: none substance use type: denies use current occupational status: retired Travel in the last 8 weeks?: None household members: family housing: house number of children: 3 Have you lived/traveled outside [place] in past 30 days?: No Contact w/someone who lives/traveled outside US past 30 days?: No Exposure to someone with infectious disease in past 14 days?: No Do you have a fever (greater than 100.4 F or 38 C)?: No Have you tested positive for COVID-19?: No Exposed to someone with COVID-19 in past 14 days?: No Do you have a sore throat?: No Do you have a cough?: No Do you have any weakness?: No Do you have any diarrhea?: No Are you experiencing any unusual bleeding?: No Do you have any muscle aches/pain?: No Do you have any abdominal pain?: No Are you experiencing loss of taste or smell?: No Other Medical History Have you received the Flu Vaccine for this season: No Have you received the Pneumonia Vaccine: No Review of Systems Review of Systems Review of systems:: unable to obtain Meds Home Medications and Allergies Home Medications ?Medication ?Instructions ?Recorded ?Confirmed ?Type citalopram 20 mg tablet 20 mg PO DAILY 10/21/2201/01 History potassium chloride 20 mEq 20 meq PO BID 05/15/2301/23 History tablet,extended release(part/cryst) albuterol sulfate 90 mcg/actuation 2 inh inhalation QI DP PRN 05/16/23 01/23/25 History aerosol inhaler Shortness Of Breath Or Wheez ing hydrochlorothiazide 12.5 mg tablet 12.5 mg PO DAILY 01/23/25 History lovastatin 20 mg tablet 20 mg PO HS 10/15/23 06/24/2 5 History metoprolol succinate 25 mg 25 mg PO DAILY 05/16/23 History tablet,extended release 24 hr levocetirizine 5 mg tablet (Xyzal) 5 mg PO DAILY #30 t abs 07/20/23 01/23/25 Rx fluticasone propionate 50 1 spray intranasal DAILY 90 days 07/22/23 01/23/25 Rx mcg/actuation nasal #16 grams spray,suspension (Flonase Allergy Relief) ipratropium 0.5 mg-albuterol 3 mg 3 ml inhalation Q6HP PRN Shortness 07/12/24 01/23/25 History (2.5 mg base)/3 mL nebulization Of Breath Or Wheezing soln tiotropium 2.5 mcg-olodaterol 2.5 2 puff inhalation DA EMMA 90 days #4 08/03/24 01/23/25 Rx mcg/actuation mist for inhalation grams (Stiolto Respimat) levothyroxine 100 mcg tablet 100 mcg PO DAILY #30 tabs 08/24/24 01/23/25 Rx brexpiprazole 1 mg tablet (Rexulti) 1 mg PO DAILY Alan ntia with 01/16/25 01/23/25 Rx agitation #30 tabs New Prescriptions to Start Prescriptions: Allergies Allergy/AdvReac Type Severity Reaction Status Date / Time codeine (CODEINE) Allergy Severe RAPID Verified 01/16/25 14:44 HEART BEAT,CHEST PAIN Exam Data for Last 24 hours Vital signs and Labs for Last 24 Hours: Temp Pulse Resp BP Pulse Ox O2 Del Method 98.5 F 76 17 119/72 92 L Room Air 01/23/25 21:16 01/23/25 21:16 01/23/25 21:16 01/23/25 21:16 01/23/25 21:16 01/23/25 21:16 Laboratory Results - last 24 hr 01/23/25 18:12: WBC 14.7 H, RBC 4.30, Hgb 13.0, Hct 38.4, MCV 89.3, MCH 30.2, MCHC 33.9, RDW 12.8, Plt Count 555 H, MPV 9.9, Neut % (Auto) 85.2 H, Lymph % (Auto) 8.1 L, [place] % (Auto) 6.0, Eos % (Auto) 0.1, Baso % (Auto) 0.2, Neut # (Auto) 12.5 H, Lymph # (Auto) 1.2, [place] # (Auto) 0.9, Eos # (Auto) 0.0, Baso # (Auto) 0.0, Sodium 135 L, Potassium 4.0, Chloride 94 L, Carbon Dioxide 29, Anion Gap 16.0 H, BUN 17, Creatinine 0.90, Estimated Creat Clear 56, Estimated GFR 62, Est GFR ( Amer) 74, Glucose 141 H, Lactate 0.9, Calcium 9.6, Total Bilirubin 0.9, AST 34, ALT 25, Alkaline Phosphatase 110, Total Protein 8.1, Albumin 3.8, Globulin 4.3 H, Albumin/Globulin Ratio 0.9 L, Procalcitonin 0.093 01/23/25 18:59: Urine Color Yellow, Urine Appearance Clear, Urine pH 6.0, Ur Specific [place] 1.025, Urine Protein Trace, Urine Glucose (UA) Negative, Urine Ketones 1+, Urine Blood Negative, Urine Nitrate Negative, Urine Bilirubin 2+ A, Urine Urobilinogen 1.0, Ur Leukocyte Esterase Negative, Urine WBC 3-5, Ur Squamous Epith Cells Occasional, Urine Bacteria 2+ I & O for Last 24 hours: Intake & Output 01/21/25 01/22/25 01/23/25 01/24/25 23:59 23:59 23:59 23:59 Weight 70.443 kg Constitutional Constitutional: no acute distress *Routine HEENT Exam Head: Present normocephalic Eye: Present EOMI and PERRL ENT: Present mucous membranes moist *Routine Neck Exam Neck: Present supple; Absent lymphadenopathy *Routine Respiratory Exam Respiratory: Present CTA bilaterally *Routine Cardiovascular Exam Cardiovascular: Present RRR *Routine Abdominal Exam Abdominal: Present soft and normoactive bowel sounds; Absent tenderness *Routine Rectal Exam Rectal:: deferred *Routine Genitalia Exam Genitalia:: deferred *Routine Extremities Exam Extremities: Absent cyanosis, clubbing or edema *Routine Skin Exam Skin: Present warm; Absent rash *Routine Neurological Exam Comments: Awake and alert but cannot answer orientation questions. Moves all extremities at well. Assessment and Plan *Assessment and plan (1) Urinary tract infectious disease: Status: Acute Qualifiers: Hematuria presence: without hematuria Urinary tract infection type: site unspecified Qualified Code(s): N39.0 - Urinary tract infection, site not specified Category: Medical Code(s): N39.0 - Urinary tract infection, site not specified (2) Metabolic encephalopathy: Status: Acute Category: Medical Code(s): G93.41 - Metabolic encephalopathy (3) Dementia: Problem Comment: Severe dementia, requires total care. Good response to Rexulti 1 mg daily but excessive daytime drowsiness, sleepiness. Status: Chronic Qualifiers: Dementia type: Alzheimer's Alzheimer's disease onset: late onset Dementia severity: moderate Dementia behavioral or psychological symptom: with agitation Qualified Code(s): G30.1 - Alzheimer's disease with late onset; F02.B11 - Dementia in other diseases classified elsewhere, moderate, with agitation Category: Medical Code(s): F03.90 - Unspecified dementia, unspecified severity, without behavioral disturbance, psychotic disturbance, mood disturbance, and anxiety (4) Hypothyroidism: Status: Acute Qualifiers: Hypothyroidism type: unspecified Qualified Code(s): E03.9 - Hypothyroidism, unspecified Category: Medical Code(s): E03.9 - Hypothyroidism, unspecified (5) Declining functional status: Status: Acute Category: Medical Code(s): R53.81 - Other malaise Plan #Functional decline #Metabolic encephalopathy #Alzheimer's/dementia Per daughter, patient end-stage Alzheimer's. Now requiring total care at home. Unable to take care of her at home per family. Would like resources for additional aid and likely hospice. CM/SW consult for a.m. Reorient as needed Per daughter, pur?ed diet. Will have speech see patient in a.m. for repeat formal speech eval Continue mood stabilization medications #Urinary tract WBCs plus bacteria. Continue Rocephin. Follow-up urine culture #Hypothyroidism Check TSH and free T4 Continue levothyroxine
[2025-01-24 04:00] VITALS: BP 99/58; PULSE 73; RESP 16; TEMP 36.8; O2SAT 92; BMI 26.5
[2025-01-24 06:27] LABS: Basophils # 0.1 K/mm3 (0-0.2); Eosinophils # 0.2 Kmm3 (0.0-0.4); Eosinophils % 1.5 % (0.1-12.0); Monocytes # 0.9 K/mm3 (0.1-1.0); Nucleated Red Blood Cells # 0 10^3/uL; Nucleated Red Blood Cells % 0 %; Red Cell Distribution Width 12.8 % (11.5-17.5)
[2025-01-24 06:30] LABS: Chloride 103 mmol/L (98-107); Potassium 3.4 mmoL/L (3.5-5.1); Sodium 137 mmol/L (136-145)
[2025-01-24 06:33] LABS: Anion Gap 10.4 mEq/L (5-15); Blood Urea Nitrogen 20 mg/dl (7-17); Calcium 8.5 mg/dl (8.4-10.2); Carbon Dioxide 27 mmol/L (22.0-30.0); Creatinine Clearance Estimated 57 mL/min (50-200); Estimated Glomerular Filt Rate 71 ml/min (>60); GFR (African American) 85 ML/MIN (>60); Glucose 101 mg/dl (74-100)
[2025-01-24 06:51] LABS: Basophils % 0.6 % (0.1-2.0); Hematocrit 32.6 % (37.0-47.0); Immature Granulocytes # 0.06 10^3uL; Immature Granulocytes % 0.6 %; Lymphocytes # 2.4 K/mm3 (0.7-4.5); Lymphocytes % 24.5 % (10-50); Mean Corpuscular HGB Conc 33.4 g/dL (31.8-35.4); Mean Corpuscular Hemoglobin 29.9 pg (27.0-31.2); Mean Corpuscular Volume 89.6 fl (81-99); Mean Platelet Volume 10.4 fl (7.4-10.4); Monocytes % 8.9 % (1.7-9.3); Neutrophils # 6.3 K/mm3 (1.8-7.8); Neutrophils % 63.9 % (37.0-80.0); Platelet Count 518 K/mm3 (142-424); Red Blood Count 3.64 M/mm3 (4.20-5.40); Red Cell Distribution Width-SD 42.2 fL; White Blood Count 9.9 K/mm3 (4.8-10.8)
[2025-01-24 06:59] LABS: Hemoglobin 10.9 g/dL (12.2-16.2)
[2025-01-24 07:58] VITALS: BP 125/46; PULSE 80; RESP 22; TEMP 36.4; O2SAT 90
--- NOTE | 2025-01-24 08:19 | HMH.PTEV ---
Physical Therapy Evaluation Rehab PT IP Evaluation Start: 01/23/25 21:18 Freq: .once Status: Active Protocol: Document 01/24/25 08:06 JESSE (Rec: 01/24/25 08:19 JESSE [id number]) Subjective/History History History Per H&P: This is a 74-year-old female with past medical history of dementia, hypothyroidism, COPD, hyper per lipidemia who presents emergency department today with worsening functional decline and confusion. Daughter at bedside reports that over the last several days she has had worsening functional decline. Has now become total care and family is unable to manage her care at home. Daughter states she is normally continent of bowel and bladder but has become completely incontinent now. She usually is able to assist with movements at home but was unable to get out of bed unassisted today. No noted mention of fever or chills. No nausea vomiting. Emergency department workup notable for acute cystitis with 3-5 white cells and +2 bacteria. White blood cell count of 14. Daughter is requested patient to be admitted to the hospital given there having difficulty taking care of her at home. They have also asked to speak to case management/social work in the morning in regards to hospice. She is admitted to the hospital service at this time Subjective Subjective Pt oriented to name but not birthday, situation, place, or year. Pt reports she lives with her mom, dad, and sister. No family present at bedside. Confirm hx with CM and see H&P. Pt is a poor historian. New diagnosis of No cancer in past 12 months? [facility] How much help from another person do you currently need... Turning from your A little back to your side while in a flat bed without using bedrails? Moving from lying on A little back to sitting on the side of a flat bed without using bedrails? Moving to and from a A lot bed to a chair ( including a wheelchair)? Standing up from a A lot chair using your arms? (e.g., wheelchair, bedside chair) Walking in hospital A lot room? Climbing 3-5 steps A lot with a railing? Mobility Score [address] [facility] Mobility 4 Move to chair/commode Mobility Calculator Rehab PT IP Eval Objective Appearance Patient Behavior Appropriate,Cooperative Patient Orientation Person Difficulty following none instructions Speech Pattern Clear Ambulation Patient Able to No Ambulate Balance Ability to Arise Able, uses arms to help Sitting Balance Steady, safe Standing Balance Unsteady Dynamic Sitting Good Balance Ability Dynamic Standing Poor Balance Ability Transfers Bed Transfer Ability Moderate x 1 (50% assist) Sit to Stand Bed Moderate x 1 (50% assist) Transfer Ability Rehab PT IP prob,goals,plan Problems Date of Evaluation: 01/24/25 PT IP Problems Bed Mobility,Transfers,Gait,Balance,Self care,Safety Rehab Potential Rehab Potential Good Equipment Needs Assistive Devices Rolling / Wheeled Walker Plan PT Intervention Plan Bed Mobility,Transfers,Gait,Balance,Self care,Safety, Therapeutic Exercise Other Intervention 1-2 times Plan PT Plan Frequency Daily Duration LOS Discharge Goals Bed Transfer Ability Minimal x 1 (25% assist) Sit to Stand Chair Minimal x 1 (25% assist) Transfer Ability Discharge Plan PT Discharge Plan Pt most appropriate for skilled inpatient rehabilitation placement upon d/c to maximize safety, address deficits, and decrease caregiver burden. Pt not able to perform functional mobility without Mod A and not able to ambulate during evaluation d/t weakness. Pt would benefit from acute care PT while at [facility] to prevent further functional decline. Eval Complexity Eval Charge Codes 17100 - Moderate Complexity PHYSICIAN CERTIFICATION: I certify the specified therapy services for Gertrudis Odell are required, authorized, and reviewed every 30 days.
[2025-01-24] MEDS: PT OWN MED *CITALOPRAM 20 MG TAB 1 EACH PO (08:58)
--- NOTE | 2025-01-24 09:03 | HMH.PHAINT1 ---
Pharmacy Intervention Comments: MEDICATION RECONCILIATION COMPLETED ON PATIENT USING EXTERNAL FILL HISTORY FROM PHARMACY. -RAYMUNDO LUCAS, RADHAD
[2025-01-24 09:13] VITALS: O2SAT 90
--- NOTE | 2025-01-24 10:04 | HMH.SLDYSPHA ---
Speech & Language Evaluation Speech/Language Dysphagia Evaluation Start: 01/24/25 09:26 Freq: ONCE Status: Active Protocol: Document 01/24/25 09:29 ANNETTEABHIJEETDAVID (Rec: 01/24/25 10:04 [facility] [id number]) Dysphagia Assess/Goals/Plan Assessment Date of Evaluation: 01/24/25 Evaluation Type Initial Certification Assessment/Problems family requested speech per MD order Does Patient Qualify Yes for Service Qualify/Failure Pt would benefit from skilled speech therapy services Comment to address diet texture analysis and diet tolerance following upgrade to mechanical soft ground/thin diet. Recommendations PHYSICIAN CERTIFICATION: The specified therapy services are required, authorized, and reviewed every 30 days. Pt will be seen # 1 times/week for # weeks 4 Diet Recommendations Mechanical Soft Liquid Type Normal/Thin Recommendations SL Swallow Assist w/all meals,Alt bite w/sip thru meal,Standard Guidelines Aspiration Prec.,Chk mough for pocketing,Crush meds as allowed*,Oral care pre/post meals Crush Meds Crush all meds Dysphagia Swallow Sitting Upright (90 deg),Small Bites and Sips,Alternate Precautions/ Liquids/Solids Strategies Place Food on Either side of Mouth Comment applesauce/pudding wash after solids Plan Pt/Guardian verbally Yes ack understanding of dx/prognosis/ goals G -code Required No Education Instructions Discussed diet recommendations, aspiration risks/ provided precautions, and compensatory strategies with caregiver , nursing, and care management all of which expressed understanding. Pt/Caregiver able to Able to recall/restate recall information Reinforcement needed No Speech & Language HPI History Present Illness Description of This is a 74-year-old female with past medical history Patient Problem of dementia, hypothyroidism, COPD, hyper per lipidemia who presents emergency department today with worsening functional decline and confusion. Family reports that over the last several days she has had worsening functional decline. Has now become total care and family is unable to manage her care at home. Daughter states she is normally continent of bowel and bladder but has become completely incontinent now. She usually is able to assist with movements at home but was unable to get out of bed unassisted today. No noted mention of fever or chills. No nausea vomiting. Pt/Caregiver Caregiver reports recent downgrade to puree by PCP 2' Concerns small bites and extended time to finish meals. General Information General Current Food Mechanical Soft,Dysphagia Mechanical Soft,Ground Meats, Consistancy Thin Liquids Dentition Good Dentition Oxygen Status Room Air Patient Orientation Person Ability to Follow Fair Directions Communication Moderate Impairment Ability Dysphagia:Food Presentation Evaluation Food Type Pureed,Mechanical Soft,Liquid,Pudding Dysphagia Evaluation Pocketing,Residual on tongue,Residual on hard palate Mechanical Soft Food Behavior Response Dysphagia Evaluation Pt was seen sitting upright on side of bed following OT Summary . Pt was eating breakfast at time SCIENTIFIC DIVER entered room and appeared to be tolerating well. Nursing and caregiver reports pt orally withholds meds and SCIENTIFIC DIVER instructed to crush meds as allowed. Pt was given crushed meds in pudding and she tolerated well. Pt was given trials of subsequent sips thin liquids via straw (difficulty following commands for one sip), pudding and pureed applesauce trials with no overt s/sxs of aspiration. She was then given a small ground trial of a MS nutrigrain bar mixed in pudding that she tolerated well . When given a larger bite of nutrigrain bar, pt was observed to have prolonged mastication with tongue pumping present; after the swallow, pt was observed to have residuals in cheek, on tongue, and trace amount on the hard palette--it was successfully cleared with puree wash. Given observations made throughout CSE, it is recommended pt be placed on a MS ground/thin diet with extra sauces/gravy with meat and a pudding/puree wash implemented after solids. She would also benefit from crushed meds and an assist with meals as well as oral care post meals. SCIENTIFIC DIVER will f/u for diet tolerance. Stroke Dysphagia Assessment PHYSICIAN CERTIFICATION: I certify the specified therapy services for Gertrudis Odell are required, authorized, and reviewed every 30 days.
--- NOTE | 2025-01-24 10:12 | HMH.OTEV ---
OT Inpatient Evaluation Rehab OT IP Evaluation Start: 01/23/25 21:18 Freq: ONCE Status: Active Protocol: Document 01/24/25 10:05 ROBERTA (Rec: 01/24/25 10:12 ROBERTA [id number]) Rehab OT IP Assessment Subjective History Per H&P: This is a 74-year-old female with past medical history of dementia, hypothyroidism, COPD, hyper per lipidemia who presents emergency department today with worsening functional decline and confusion. Daughter at bedside reports that over the last several days she has had worsening functional decline. Has now become total care and family is unable to manage her care at home. Daughter states she is normally continent of bowel and bladder but has become completely incontinent now. She usually is able to assist with movements at home but was unable to get out of bed unassisted today. No noted mention of fever or chills. No nausea vomiting. Emergency department workup notable for acute cystitis with 3-5 white cells and +2 bacteria. White blood cell count of 14. Daughter is requested patient to be admitted to the hospital given there having difficulty taking care of her at home. They have also asked to speak to case management/social work in the morning in regards to hospice. She is admitted to the hospital service at this time Subjective I live with my mom and dad. Pt was supine in bed when therapy entered. Pt agreed to complete initial OT eval. Pt orient x1. Pt unable to give hx/ background due to confusion. Pt agreed to sit on EOB. Pt able to go from supine to EOB with Min A x1 with Max verbal cues and prompts. Pt able to hold static sitting balance well for [address] and nursing completed medication and eval. Pt demo good tolerance for activity. Pt left on EOB with nursing and ST to further assess pt and complete tasks. Caregiver able to give report of pt and background. CG reports pt has shower chair but does not use it. CG reports pt can complete functional mobility w/o AD but does have walker if needed. CG reports pt lives with son and DIL and DIL is present / and pt would have 22/02 care. CG reports they have bed alarm and camera on pt at night. CG reports they would like to get grab bars and raised toilet seat to help with self-care and ADL task completion. Objective Patient Orientation Name Right Upper WFL Extremity Gross ROM Left Upper Extremity WFL Gross ROM Bed Mobility bed mobility-scooting,bed mobility - supine/sit Assist Level Minimal x 1 (25% assist) Decrease in Yes Endurance Rehab OT IP prob,goals,plan Problems Date of Evaluation: 01/24/25 OT IP Problems Bed Mobility,Transfers,Balance,Self care,Safety Rehab Potential Rehab Potential Good Equipment Needs Assistive Devices Standard Walker,Rolling / Wheeled Walker Plan OT intervention Plan Bed Mobility,Transfers,Balance,Self care,Safety, Therapeutic Exercise OT Plan Frequency Daily Duration LOS Discharge Goals Bed Mobility Ability Standby Assistance Sit to Stand Chair Supervision/Stand by Transfer Ability Chair Transfer Supervision/Stand by Ability Chair Transfer Sit to/from Ambulatory Technique Chair Transfer Standard Walker,Rolling Walker Assistive Devices Feeding Ability Assist with Tray Set Up Commode/Toilet Raised Toilet Seat,Grab Bars Transfer Assistive Devices Decrease in No Endurance Discharge Plan OT Discharge Plan At this time, pt would benefit from skilled acute OT to address functional limitations in occupational performance. Pt would also benefit from skilled rehab placement to further address functional limitations in occupational performance on DC from [facility]. If pt has 24/7 care and assistance and AD to help with caregiver burden and completion of ADLs, pt can go home with OT HH to address functional limitations in occupational performance. Eval Complexity Eval Charge Codes 89492 - Moderate Complexity PHYSICIAN CERTIFICATION: I certify the specified therapy services for Gertrudis Odell are required, authorized, and reviewed every 30 days.
--- NOTE | 2025-01-24 11:35 | SW/DCPLANNER ---
Addendum entered by Loulou Deleon 01/24/25 14:50: Kelley w/ [facility] is at bedside. Plan for patient is to return home w/ Hospice services. POA is a bedside and concurs w/ discharge plan. Original Note: I spoke w/ patient's POA (Casandra) regarding discharge planning. Casandra expressed an interest in Hospice services at home. Casandra also stated that she cares for patient at home 24-7. Patient information will be faxed to Casandra w/ [facility] this AM. Discharge date is unknown at this time. I will continue to follow up.
--- NOTE | 2025-01-24 15:35 | P.DS_ITS ---
General Admission date:: 01/23/25 Discharge date: 01/24/25 HPI HPI HPI: This is a 74-year-old female with past medical history of dementia, hypothyroidism, COPD, hyper per lipidemia who presents emergency department today with worsening functional decline and confusion. Daughter at bedside reports that over the last several days she has had worsening functional decline. Has now become total care and family is unable to manage her care at home. Daughter states she is normally continent of bowel and bladder but has become completely incontinent now. She usually is able to assist with movements at home but was unable to get out of bed unassisted today. No noted mention of fever or chills. No nausea vomiting. Emergency department workup notable for acute cystitis with 3-5 white cells and +2 bacteria. White blood cell count of 14. Daughter is requested patient to be admitted to the hospital given there having difficulty taking care of her at home. They have also asked to speak to case management/social work in the morning in regards to hospice. She is admitted to the hospital service at this time Hospital Course Hospital Course Hospital Course: 74-year-old male who presented with concern for weakness and mild confusion. On presentation found to have suspected UTI. Patient has been having further functional decline due to her Alzheimer's as well. Requiring significant care at home. Responding to antibiotics. Goals of care discussions led to decision to consult hospice to assist with care at home. Patient and family agreeable to this level of support. Hospice evaluated and will admit patient when she arrives home. Stable to discharge to complete antibiotic course. Problems addressed as follows: #Functional decline #Metabolic encephalopathy #Alzheimer's/dementia Per daughter, patient end-stage Alzheimer's. Now requiring total care at home. Unable to take care of her at home per family. Would like resources for additional aid and likely hospice. Social work was consulted to assist with care. Patient's mentation improved a little after starting antibiotics. Appears more or less at her baseline at this time. Continue to educate and for mood including citalopram and Rexulti. Patient alert to self on morning of discharge. #Urinary tract: Urinalysis grossly abnormal with white cells and bacteria. Urine culture still pending. Initiated on ceftriaxone. Transition to Levaquin to complete 5 days of therapy. Will follow culture after discharge. #Hypothyroidism: continue home levothyroxine 100 mcg daily Total time spent on discharge 35 minutes in counseling, documentation, chart review, and direct care with patient. Exam Data for Last 24 hours Vital signs and Labs for Last 24 Hours: Temp Pulse Resp BP Pulse Ox O2 Del Method 97.5 F L 80 22 125/46 L 90 L Room Air 01/24/25 07:58 01/24/25 07:58 01/24/25 07:58 01/24/25 07:58 01/24/25 09:13 01/24/25 14:56 Laboratory Results - last 24 hr 01/23/25 18:12: WBC 14.7 H, RBC 4.30, Hgb 13.0, Hct 38.4, MCV 89.3, MCH 30.2, MCHC 33.9, RDW 12.8, Plt Count 555 H, MPV 9.9, Neut % (Auto) 85.2 H, Lymph % (Auto) 8.1 L, [place] % (Auto) 6.0, Eos % (Auto) 0.1, Baso % (Auto) 0.2, Neut # (Auto) 12.5 H, Lymph # (Auto) 1.2, [place] # (Auto) 0.9, Eos # (Auto) 0.0, Baso # (Auto) 0.0, Sodium 135 L, Potassium 4.0, Chloride 94 L, Carbon Dioxide 29, Anion Gap 16.0 H, BUN 17, Creatinine 0.90, Estimated Creat Clear 56, Estimated GFR 62, Est GFR ( Amer) 74, Glucose 141 H, Lactate 0.9, Calcium 9.6, Total Bilirubin 0.9, AST 34, ALT 25, Alkaline Phosphatase 110, Total Protein 8.1, Albumin 3.8, Globulin 4.3 H, Albumin/Globulin Ratio 0.9 L, Procalcitonin 0.093 01/23/25 18:59: Urine Color Yellow, Urine Appearance Clear, Urine pH 6.0, Ur Specific [place] 1.025, Urine Protein Trace, Urine Glucose (UA) Negative, Urine Ketones 1+, Urine Blood Negative, Urine Nitrate Negative, Urine Bilirubin 2+ A, Urine Urobilinogen 1.0, Ur Leukocyte Esterase Negative, Urine WBC 3-5, Ur Squamous Epith Cells Occasional, Urine Bacteria 2+ 01/24/25 05:45: WBC 9.9 D, RBC 3.64 L, Hgb 10.9 L D, Hct 32.6 L, MCV 89.6, MCH 29.9, MCHC 33.4, RDW 12.8, Plt Count 518 H, MPV 10.4, Neut % (Auto) 63.9, Lymph % (Auto) 24.5, [place] % (Auto) 8.9, Eos % (Auto) 1.5, Baso % (Auto) 0.6, Neut # (Auto) 6.3, Lymph # (Auto) 2.4, [place] # (Auto) 0.9, Eos # (Auto) 0.2, Baso # (Auto) 0.1, Sodium 137, Potassium 3.4 L, Chloride 103, Carbon Dioxide 27, Anion Gap 10.4, BUN 20 H, Creatinine 0.80, Estimated Creat Clear 57, Estimated GFR 71, Est GFR ( Amer) 85, Glucose 101 H D, Calcium 8.5 I & O for Last 24 hours: Intake & Output 01/21/25 01/22/25 01/23/25 01/24/25 23:59 23:59 23:59 23:59 Intake Total 1760 / 1760 1510 / 1510 Balance 1760 / 1760 1510 / 1510 Weight 70.443 kg 70.443 kg Constitutional Constitutional: no acute distress, average body habitus, chronically ill appearing and cooperative *Routine HEENT Exam Head: Present normocephalic Eye: Present EOMI and PERRL ENT: Present mucous membranes moist *Routine Neck Exam Neck: Present supple; Absent lymphadenopathy *Routine Respiratory Exam Respiratory: Present CTA bilaterally; Absent rhonchi *Routine Cardiovascular Exam Cardiovascular: Present RRR *Routine Abdominal Exam Abdominal: Present soft and normoactive bowel sounds; Absent tenderness *Routine Rectal Exam Patient deferred: visual exam *Routine Exam Patient deferred: external exam *Routine Extremities Exam Extremities: Absent cyanosis, clubbing or edema *Routine Skin Exam Skin: Present intact and warm; Absent rash *Routine Neurological Exam Neurological: Present alert, altered mental status and moving all extremities Comments: Oriented to self only Results Data Completed and Pending Labs on day of discharge: Labs from last 24 hours 01/24/25 01/23/25 01/23/25 05:45 18:59 18:12 WBC 9.9 D 14.7 H RBC 3.64 L 4.30 Hgb 10.9 L D 13.0 Hct 32.6 L 38.4 MCV 89.6 89.3 MCH 29.9 30.2 MCHC 33.4 33.9 RDW 12.8 12.8 Plt Count 518 H 555 H MPV 10.4 9.9 Neut % (Auto) 63.9 85.2 H Lymph % (Auto) 24.5 8.1 L [place] % (Auto) 8.9 6.0 Eos % (Auto) 1.5 0.1 Baso % (Auto) 0.6 0.2 Neut # (Auto) 6.3 12.5 H Lymph # (Auto) 2.4 1.2 [place] # (Auto) 0.9 0.9 Eos # (Auto) 0.2 0.0 Baso # (Auto) 0.1 0.0 Sodium 137 135 L Potassium 3.4 L 4.0 Chloride 103 94 L Carbon Dioxide 27 29 Anion Gap 10.4 16.0 H BUN 20 H 17 Creatinine 0.80 0.90 Estimated Creat Clear 57 56 Estimated GFR 71 62 Est GFR ( Amer) 85 74 Glucose 101 H D 141 H Lactate 0.9 Calcium 8.5 9.6 Total Bilirubin 0.9 AST 34 ALT 25 Alkaline Phosphatase 110 Total Protein 8.1 Albumin 3.8 Globulin 4.3 H Albumin/Globulin Ratio 0.9 L Procalcitonin 0.093 Urine Color Yellow Urine Appearance Clear Urine pH 6.0 Ur Specific [place] 1.025 Urine Protein Trace Urine Glucose (UA) Negative Urine Ketones 1+ Urine Blood Negative Urine Nitrate Negative Urine Bilirubin 2+ A Urine Urobilinogen 1.0 Ur Leukocyte Esterase Negative Urine WBC 3-5 Ur Squamous Epith Cells Occasional Urine Bacteria 2+ DS: Diagnosis Discharge Diagnosis (1) Urinary tract infectious disease: Status: Acute Code(s): N39.0 - Urinary tract infection, site not specified Qualifiers: Hematuria presence: without hematuria Urinary tract infection type: site unspecified Qualified Code(s): N39.0 - Urinary tract infection, site not specified (2) Metabolic encephalopathy: Status: Acute Code(s): G93.41 - Metabolic encephalopathy (3) Dementia: Status: Chronic Code(s): F03.90 - Unspecified dementia, unspecified severity, without behavioral disturbance, psychotic disturbance, mood disturbance, and anxiety Qualifiers: Alzheimer's disease onset: late onset Dementia behavioral or psychological symptom: with agitation Dementia severity: moderate Dementia type: Alzheimer's Qualified Code(s): G30.1 - Alzheimer's disease with late onset; F02.B11 - Dementia in other diseases classified elsewhere, moderate, with agitation Problem details: Severe dementia, requires total care. Good response to Rexulti 1 mg daily but excessive daytime drowsiness, sleepiness. (4) Hypothyroidism: Status: Acute Code(s): E03.9 - Hypothyroidism, unspecified Qualifiers: Hypothyroidism type: unspecified Qualified Code(s): E03.9 - Hypothyroidism, unspecified (5) Declining functional status: Status: Acute Code(s): R53.81 - Other malaise Meds Home Medications and Allergies Home Medications ?Medication ?Instructions ?Recorded ?Confirmed ?Type citalopram 20 mg tablet 20 mg PO DAILY 10/21/2201/01 History potassium chloride 20 mEq 20 meq PO BID 05/15/2301/23 History tablet,extended release(part/cryst) albuterol sulfate 90 mcg/actuation 2 inh inhalation QI DP PRN 05/16/23 01/23/25 History aerosol inhaler Shortness Of Breath Or Wheez ing hydrochlorothiazide 12.5 mg tablet 12.5 mg PO DAILY 01/23/25 History lovastatin 20 mg tablet 20 mg PO HS 05/16/23 5 History metoprolol succinate 25 mg 25 mg PO DAILY 05/16/23 History tablet,extended release 24 hr levocetirizine 5 mg tablet (Xyzal) 5 mg PO DAILY #30 t abs 07/20/23 01/23/25 Rx fluticasone propionate 50 1 spray intranasal DAILY 90 days 07/22/23 01/23/25 Rx mcg/actuation nasal #16 grams spray,suspension (Flonase Allergy Relief) ipratropium 0.5 mg-albuterol 3 mg 3 ml inhalation Q6HP PRN Shortness 07/12/24 01/23/25 History (2.5 mg base)/3 mL nebulization Of Breath Or Wheezing soln tiotropium 2.5 mcg-olodaterol 2.5 2 puff inhalation DA EMMA 90 days #4 08/03/24 01/23/25 Rx mcg/actuation mist for inhalation grams (Stiolto Respimat) levothyroxine 100 mcg tablet 100 mcg PO DAILY #30 tabs 08/24/24 01/23/25 Rx brexpiprazole 1 mg tablet (Rexulti) 1 mg PO DAILY 01/0101/23/25 History levofloxacin 500 mg tablet 500 mg PO DAILY 5 days #5 t abs 01/24/25 Rx New Prescriptions to Start Prescriptions: levofloxacin Jairo Myers Allergies Allergy/AdvReac Type Severity Reaction Status Date / Time codeine (CODEINE) Allergy Severe RAPID Verified 01/16/25 14:44 HEART BEAT,CHEST PAIN Discharge Plan Disposition Patient Disposition: Hospice - Home Condition: Good Discharge Order Discharge Orders: Discharge Order (Routine); Ordered 01/24/25 Ordered By: Jairo Myers Follow up Plan Prescriptions/Medication Reconciliation: New levofloxacin 500 mg tablet 500 mg PO DAILY 5 Days Qty: 5 0RF Continued citalopram 20 mg tablet 20 mg PO DAILY fluticasone propionate [Flonase Allergy Relief] 50 mcg/actuation spray,suspension 1 spray intranasal DAILY 90 Days Qty: 16 3RF Rx Instructions: administer into each nostril levocetirizine [Xyzal] 5 mg tablet 5 mg PO DAILY Qty: 30 3RF levothyroxine 100 mcg tablet 100 mcg PO DAILY Qty: 30 12RF Stiolto Respimat 2.5-2.5 mcg/actuation mist 2 puff inhalation DAILY 90 Days Qty: 4 3RF potassium chloride 20 mEq tablet,ER particles/crystals 20 meq PO BID hydrochlorothiazide 12.5 mg tablet 12.5 mg PO DAILY metoprolol succinate 25 mg tablet extended release 24 hr 25 mg PO DAILY lovastatin 20 mg tablet 20 mg PO HS albuterol sulfate 90 mcg/actuation HFA aerosol inhaler 2 inh INHALATION QIDP PRN (Reason: Shortness Of Breath Or Wheezing) Rexulti 1 mg tablet 1 mg PO DAILY ipratropium-albuterol 0.5 mg-3 mg(2.5 mg base)/3 mL Solution For Nebulization 3 ml INHALATION Q6HP PRN (Reason: Shortness Of Breath Or Wheezing) Problem Reconciliation Problems Reviewed?: Yes Patient Discharge Instructions ACTIVITY: Continue current activity DIET: continue same diet Patient Instructions: DI for Urinary Tract Infection (UTI), DI for Encephalopathy, Stop Light Infection Print Language: [place]ian Providers Primary Care Provider: Huan Magaña Admit Provider: Gerard Morgan Attending Provider: Gerard Morgan
[2025-01-24] MEDS: POTASSIUM CHLORIDE 20MEQ TAB 40 MEQ PO (15:46)
== END 2025-01-24 16:15 | disposition hospice, home (50) ==
LOC: ER 19:59 → 2ND 20:18
PROVIDERS: Nurse Practitioner Acute Care; Physician Assistant; Admitting Provider Student in an Organized Health Care Education/Training Program; Emergency Provider Emergency Medicine; PCP Nurse Practitioner Family; Visit Provider Student in an Organized Health Care Education/Training Program
DX: N30.00 Acute cystitis without hematuria (principal); B96.89 Other specified bacterial agents as the cause of diseases classified elsewhere; G93.41 Metabolic encephalopathy; G30.1 Alzheimer's disease with late onset; F02.B11 Dementia in other diseases classified elsewhere, moderate, with agitation; E03.9 Hypothyroidism, unspecified; J44.9 Chronic obstructive pulmonary disease, unspecified; E78.5 Hyperlipidemia, unspecified; Z87.891 Personal history of nicotine dependence; Z79.621 Long term (current) use of calcineurin inhibitor; Z79.890 Hormone replacement therapy; Z79.899 Other long term (current) drug therapy; Z82.49 Family history of ischemic heart disease and other diseases of the circulatory system; Z80.8 Family history of malignant neoplasm of other organs or systems; Z83.6 Family history of other diseases of the respiratory system; Z83.49 Family history of other endocrine, nutritional and metabolic diseases; Z88.5 Allergy status to narcotic agent
CPT/HCPCS: 36415; 80048; 80053; 81001; 83605; 84145; 85025; 87040; 87086; 92610; 96361; 96365; 96375; 97110; 97162; 97166; G0378; J0696; J1885; J7030

== ENCOUNTER 2025-02-19 16:53 | Outpatient (CLI) | payer OTHER, MEDICARE, SELFPAY ==
--- OUTSIDE RECORDS SUMMARY | 2025-02-19 16:54 | XMS_ITS ---
Author Name Auto Generated, Auto Generated Organization [facility] Address [address] [place] [address] Phone [phone] Care Team Providers Care It Security Consultant Name Role Phone Huan Magaña Unavailable [phone] Neo Rg Unavailable [phone] Gerard Morgan Unavailable [phone] Becky Magaña Unavailable [phone] Sean Castro Unavailable Functional Status Mental Status Allergies and Intolerances Encounters Medications Treatment Plan Problems No Known Problems Social History Vital Signs Reason for Referral
--- OUTSIDE RECORDS SUMMARY | 2025-02-19 16:55 | XMS_ITS | Clinical Summary ---
Author Organization Healthcare Address [address] [place] [address] Care Team Providers Care Wire Lather Name Role Phone Huan Magaña [id number] Primary Care Provider [phone] Allergies Active Allergy Reactions Criticality Noted Date Comments Codeine Palpitations Low 09/22/2021 Medications budesonide-formote rol (Symbicort) 80-4.5 MCG/ACT inhaler 9 Active potassium chloride CR (Klor-Con M20) 20 MEQ ER tablet 2 Active Vitamin D3 1.25 MG (45322 UT) capsule 2 Active memantine (Namenda) 10 [...] route. 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
[2025-02-19 16:59] LABS: Microscopic, Urine URINE MICROSCOPIC (MICROSCOPIC)
[2025-02-19 18:12] LABS: Bilirubin,Urine Negative (Negative); Color,Urine YELLOW (Yellow); Glucose,Urine (UA) Negative (Negative); Ketones,Urine Negative (Negative); Leukocyte Esterase,Urine Negative (Negative); PH,Urine 5.5 (5.0-8.5); Protein,Urine Negative (Negative); Specific Gravity, Urine >= 1.030 (1.005-1.030); Urobilinogen,Urine 1.0 EU/dl (0.2)
[2025-02-19 18:35] LABS: Bacteria,Urine Trace /lpf; Mucus,Urine 1+ /lpf; RBC,Urine Occasional #/hpf (0-3); Squamous Epithelial Cell,Urine Occasional #/hpf (0-5); WBC,Urine Occasional #/hpf (0-3)
== END 2025-02-19 23:59 | disposition home or self-care (01) ==
LOC: LAB 16:54
PROVIDERS: PCP Nurse Practitioner Family; Visit Provider Family Medicine Hospice and Palliative Medicine
DX: R32 Unspecified urinary incontinence (principal)
CPT/HCPCS: 81001